=== PATIENT | female | born 1935 | race Caucasian/White ===

== ENCOUNTER → 2020-10-12 10:44 | Outpatient (BNVA) | payer MEDICARE, SELFPAY | PROVIDERS: PCP Family Medicine; Visit Provider Internal Medicine | DX: J98.4 Other disorders of lung (principal); J44.9 Chronic obstructive pulmonary disease, unspecified; Z79.51 Long term (current) use of inhaled steroids | CPT/HCPCS: 99212 ==

== ENCOUNTER → 2020-11-16 13:55 | Outpatient (BNVA) | payer MEDICARE, SELFPAY | PROVIDERS: PCP Family Medicine; Visit Provider Internal Medicine Cardiovascular Disease | DX: I48.0 Paroxysmal atrial fibrillation (principal); I27.20 Pulmonary hypertension, unspecified; R60.0 Localized edema | CPT/HCPCS: 93005; 99212 ==

== ENCOUNTER → 2021-05-30 15:36 | Outpatient (BNVA) | payer MEDICARE, SELFPAY | PROVIDERS: PCP Family Medicine; Visit Provider Internal Medicine | DX: J44.9 Chronic obstructive pulmonary disease, unspecified (principal); J98.4 Other disorders of lung; R06.00 Dyspnea, unspecified; E66.9 Obesity, unspecified; Z68.41 Body mass index [BMI] 40.0-44.9, adult; Z79.51 Long term (current) use of inhaled steroids; Z71.3 Dietary counseling and surveillance | CPT/HCPCS: 99212 ==

== ENCOUNTER → 2022-04-17 14:22 | Outpatient (BNVA) | payer MEDICARE, SELFPAY | PROVIDERS: PCP Family Medicine; Referring Provider Family Medicine; Visit Provider Internal Medicine Cardiovascular Disease | DX: R60.0 Localized edema (principal); I48.0 Paroxysmal atrial fibrillation; I27.20 Pulmonary hypertension, unspecified | CPT/HCPCS: 93005; 99212 ==

== ENCOUNTER 2022-05-13 10:36 | Inpatient (IN) | payer MEDICARE, SELFPAY ==
--- NOTE | ~2022-05-13 | XR_ITS ---
EXAMINATION: XR CHEST CLINICAL INFORMATION: Hypoxia COMPARISON: January 16, 2019 TECHNIQUE: AP view of the chest was obtained. FINDINGS: There is prominence of the central pulmonary vasculature without airspace edema being evident. There is some hazy density seen about the left heart border likely related to pericardial fat pad. No pneumothorax or significant pleural effusion is appreciated. XR/XR chest 1V IMPRESSION: No significant acute parenchymal disease identified. Prominence of central pulmonary vasculature without nigel interstitial or airspace edema.
--- NOTE | ~2022-05-13 | CT_ITS ---
EXAMINATION: CT HEAD WITHOUT CONTRAST CLINICAL INFORMATION: Status post fall, on Xarelto, rule out intracranial abnormality. COMPARISON: Head CT scan dated 01/16/2019. TECHNIQUE: Contiguous axial imaging was performed from the skull base to vertex without intravenous administration of contrast. Coronal and sagittal reformatted images were obtained. This CT examination was performed using dose optimization techniques as appropriate, variously including the following: *Automated exposure control *Adjustment of mA and/or kV according to patient size (this includes techniques or standardized protocols for targeted exams where dose is matched to indication/reason for exam; i.e. extremities or head) *Use of iterative reconstruction technique DLP: 696.67 mGy-cm FINDINGS: There is mild widening of the cortical sulci and associated ventriculomegaly. Mild periventricular microvascular changes are seen. The lateral ventricles are symmetrical. The third and fourth ventricles are in their normal midline position. The basilar and prepontine cisterns are unremarkable. There is no acute intra or extracerebral abnormality. There is no mass effect or midline shift. Sections through the bony calvarium are unremarkable. The orbits are intact. The paranasal sinuses are clear. The mastoid air cells are clear. CT/CT head/brain wo IV con IMPRESSION: No acute intracranial pathology.
--- NOTE | ~2022-05-13 | CT_ITS ---
EXAMINATION: CT CERVICAL SPINE WITHOUT CONTRAST CLINICAL INFORMATION: Status post fall with head strike. COMPARISON: None TECHNIQUE: Multiple axial images of the cervical spine were obtained without the administration of intravenous contrast. Coronal and sagittal reformatted images were obtained. This CT examination was performed using dose optimization techniques as appropriate, variously including the following: *Automated exposure control *Adjustment of mA and/or kV according to patient size (this includes techniques or standardized protocols for targeted exams where dose is matched to indication/reason for exam; i.e. extremities or head) *Use of iterative reconstruction technique DLP: 421.97 mGy-cm FINDINGS: There is straightening of the normal cervical lordosis with normal spinal alignment. The vertebral bodies are intact. Moderate degenerative disc disease is seen at C5-C6 and C6-C7 with disc space narrowing and marginal osteophyte formation. Mild bilateral neural foraminal narrowing is seen as well. Mild multilevel facet arthropathy seen bilaterally. The spinous processes are intact. The odontoid process is intact. The cervical soft tissues are unremarkable. There is no lymphadenopathy. The visualized thyroid gland is unremarkable. The visualized lung apices are clear. CT/CT cervical spine wo IV con IMPRESSION: 1. Straightening of the normal cervical lordosis may be secondary to positioning and/or muscle spasm. 2. Multilevel degenerative changes. No acute abnormality.
--- NOTE | 2022-05-13 10:50 | ECG_ITS ---
Test Reason : LOW SATS Blood Pressure : / mmHG Vent. Rate : 074 BPM Atrial Rate : 074 BPM P-R Int : 174 ms QRS Dur : 090 ms QT Int : 396 ms P-R-T Axes : 077 048 019 degrees QTc Int : 439 ms Normal sinus rhythm Intra-ventricular conduction delay Borderline ECG When compared with ECG of 16-JAN-2019 10:51, No significant change was found Referred By: Lora Wells Electronically Signed By:ARAVIND NGUYEN MD
--- NOTE | 2022-05-13 10:52 | ED_ITS ---
HPI - General Adult General Chief complaint: Dyspnea Stated complaint: fall-diff breathing Source: patient and EMS Mode of arrival: EMS Limitations: no limitations History of Present Illness HPI narrative: 86 yo female with history of COPD/asthma, restrictive lung disease, never smoker, paroxysmal afib on Xarelto, obesity, pulmonary HTN, chronic LE edema with recent diagnosis of COVID 1 week ago who presents to the ER from [facility] facility who presents to the ER for evaluation of hypoxia and a mechanical fall in the bathroom today. EMS reports they were called to evaluate the patient after she slipped and fell in the bathroom. Patient states after she got out of the shower today she slipped on the floor and fell onto her bottom. She did not hit her head or lose consciousness. She was unable to get up on her own so called EMS. On EMS arrival patient was awake and alert with some mild respiratory distress. She was found to be hypoxic to 80-84%, unable to recover on her own. She was sl ightly wheezy and diminished per EMS report. She was placed on supplemental oxygen, 3-4L with improvement in sats to low 90's. Patient refused transfer to the hospital, [facility] was called to [facility] [place] and patient was convinced to come for evaluation. En route patient was given duoneb and 100 mg solucortef. On arrival to ED, SpO2 89% on RA, 92% on 2L NC. No respiratory distress. Patient denies chest pain, injuries from her fall. She has chronic LE edema that she says is unchanged from her baseline. MD complaint: hypoxia, s/p fall Onset (ago): hour(s) Pain Consistency: constant Relieving factors: other (oxygen) Associated symptoms: cough, shortness of breath and weakness Treatments prior to arrival: none Related Data Home Medications Medication Instructions Recorded Confirmed ascorbic acid (vitamin C) 500 mg 500 mg PO DAILY 10/12/20 05/13/22 capsule rivaroxaban 20 mg tablet 20 mg PO BEDTIME 11/16/20 05/13/22 fluticasone propionate 50 2 spray intranasal DAILY 05/30/21 05/13/22 mcg/actuation nasal spray,suspension vitamin B complex (Vitamins B 1 tab PO DAILY 05/30/21 05/13/22 Complex tablet) fluoxetine 10 mg capsule 10 mg PO BEDTIME 04/17/22 05/13/22 pregabalin 150 mg capsule 150 mg PO DAILY 04/17/22 05/13/22 torsemide 20 mg tablet 20 mg PO DAILY 04/17/22 05/13/22 albuterol sulfate 90 mcg/actuation 2 puff inhalation Q6H PRN 05/13/22 05/13/22 aerosol inhaler (Ventolin HFA) Shortness Of Breath fluoxetine 20 mg capsule 1 cap PO BEDTIME 05/13/22 05/13/22 trazodone 50 mg tablet 1 tab PO BEDTIME PRN Insomnia 05/13/22 05/13/22 Allergies Allergy/AdvReac Type Severity Reaction Status Date / Time latex [LATEX] Allergy Unknown RASH Verified 05/30/21 16:00 penicillin G [PENICILLIN G] Allergy Unknown SOB, RASH Verified 05/30/21 16:00 Sulfa (Sulfonamide Allergy Unknown hives, Verified 05/30/21 16:00 Antibiotics) itching Review of Systems Review of Systems: Constitutional: No Fever, No Chills ENT/Mouth: No sore throat, No Rhinorrhea, No Swallowing Difficulty Eyes: No Eye Pain, No Swelling, No Redness Cardiovascular: No Chest Pain, + SOB, No Orthopnea, + Edema Respiratory: + Cough, No Sputum, No Wheezing, No dyspnea Gastrointestinal: No Nausea, No Vomiting, No Diarrhea, No abdominal Pain, No Hematochezia, No Melena Genitourinary: No Dysuria, No Urinary Frequency, No Hematuria Musculoskeletal: No joint pain, No Myalgias Skin: No Skin Lesions, No rash Neuro: +Weakness, No Numbness, No Dizziness, No Headache Psych: No Anxiety/Panic, No Depression Heme/Lymph: No Bruising, No Lymphadenopathy Endocrine: No Polyuria, No Polydipsia PMFSH Past Medical History Medical History COPD (chronic obstructive pulmonary disease) Obesity Paroxysmal atrial fibrillation Pulmonary hypertension Restrictive lung disease Surgical History History of lumpectomy of right breast History of umbilical hernia repair Hx of appendectomy Hx of cholecystectomy Hx of colonoscopy Family History Family History Father CVD (cardiovascular disease) Mother No problems noted. Social History Social History Smoked in Last 30 Days: No Use of substances other than those prescribed or required for medical reasons: No Advance Directives: No Physical Exam ED Vital Signs: Vital Signs - 24 hr 05/13/22 10:54 05/13/22 11:56 Temperature 97.8 F 97.7 F Pulse Rate 78 97 Respiratory Rate 20 16 Blood Pressure 139/40 L 129/51 L Pulse Oximetry 92 95 Oxygen Delivery Method Nasal Cannula Nasal Cannula Oxygen Flow Rate 2 BMI result Body Mass Index 42.9 Appearance: Alert. Oriented X3. No acute distress. Eyes: Pupils equal, round and reactive to light. ENT: Pharynx normal. Neck: Normal inspection. Neck supple. CVS: Normal heart rate and rhythm. Pulses normal. Respiratory: No respiratory distress. Breath sounds diminished at bilateral bases, no wheezes or rhonchi appreciated. Abdomen: Obese Soft and nontender. +BS x4 Skin: Skin warm and dry. Normal skin color. Normal skin turgor. No rashes. Extremities: 3+ bilateral lower extremity edema with mild erythema and warmth of distal LE bilaterally (chronic), not shiny. no calf tenderness. Neuro: Oriented X 3. No motor deficit. No sensory deficit. Generalized weakness noted, nonfocal Course Course Course Narrative: 86 yo female with history of COPD/asthma/restrictive lung disease, recent COVID diagnosis 1 week ago, afib on Xarelto, neuropathy, LE edema who presents to the ER for evaluation after a slip and fall in the bathroom as well as hypoxia, low 80s on room air. Minimal respiratory symptoms but admits to mild SOB and prod uctive cough. Overall she appears well, nontoxic and not SOB. She remains hypoxic 89% on RA after neb, no appreciated wheezes. Will check CXR, COVID labs, EKG and plan for admission. She is vaccinated. Reevaluation(s) Reevaluation #1: Continues to require O2. CXR with central vascular congestion, without overt edema. Ferritin normal. DDIMER on 400s (doubt PE, anticoagulated) and CRP 2.26. Will plan for admission for IV steroids, supplemental oxygen and further monitoring. Patient updated on plan of care. Medical Decision Making Lab Data Result diagrams: 05/13/22 11:11 05/13/22 11:11 Labs: Lab Results 05/13/22 05/13/2205/13/22 Range/Units 11:11 11:11 11:11 WBC 6.0 (4.8-10.8) X10*3/uL RBC 5.02 (4.20-5.50) X10*6/uL Hgb 13.6 (12.0-16.0) g/dl Hct 45.7 (37.0-47.0) % MCV 91.0 (80.0-98.0) fL MCH 27.1 (27.0-33.0) pg MCHC 29.8 L (31.0-35.0) g/dl RDW 15.2 (11.0-16.0) % Plt Count 142 L (160-400) X10*3/uL MPV 10.0 (9.4-12.3) fL Immature Gran % (Auto) 0.2 (0.0-0.4) % Neut % (Auto) 80.0 H (45-73) % Lymph % (Auto) 12.1 L (20-40) % [place] % (Auto) 6.9 (2-11) % Eos % (Auto) 0.5 (0-4) % Baso % (Auto) 0.3 (0-2) % Lymph # (Auto) 0.7 L (1.2-4.9) X10*3/uL [place] # (Auto) 0.4 (0.1-1.2) X10*3/uL Eos # (Auto) 0.0 (0.0-0.4) X10*3/uL Baso # (Auto) 0.0 (0.0-0.2) X10*3/uL Abs Immat Gran (auto) 0.01 (0.00-0.03) X10*3/uL Absolute Neuts (auto) 4.8 (2.0-8.3) x10*3/uL Absolute Nucleated RBC 0.000 (0.0-0.012) X10*3/uL Nucleated RBC % (auto) 0.0 (0.0-0.2) /100WBC PT (10.0-13.1) SEC INR (0.9-1.1) APTT (26.0-36.4) SEC D-Dimer High Sensitivty NG/ML Sodium 142 (135-145) mmol/L Potassium 4.6 (3.3-5.1) mmol/L Chloride 102 (96-108) mmol/L Carbon Dioxide 29 (22-29) mmol/L Anion Gap 16 (12-20) BUN 14 (9-16) mg/dL Creatinine 0.81 (0.5-1.4) mg/dL Estim Creat Clear Calc 63.8 Estimated GFR > 60 Random Glucose 106 (60-115) mg/dL Lactic Acid 1.2 (0.5-2.0) mmol/L Calcium 9.7 (8.4-10.2) mg/dL Magnesium 1.6 (1.6-2.6) mg/dL Ferritin 36 (10-250) ng/mL Total Bilirubin 0.9 (0.0-1.0) mg/dL Direct Bilirubin 0.3 (0.0-0.5) mg/dL AST 16 (5-31) U/L ALT 9 (0-31) U/L Alkaline Phosphatase 114 (39-117) U/L Lactate Dehydrogenase 183 (122-220) U/L Troponin I High Sens (<3.5-17.0) ng/L C-Reactive Protein 2.26 H (< or = 0.50) mg/dL B-Natriuretic Peptide (<100) pg/mL Total Protein 6.9 (6.5-8.0) g/dL Albumin 3.6 (3.5-5.0) g/dL COVID-19 (IVETT) (Negative) COVID-19 Clin Com 05/13/22 05/13/22 05/13/22 Range/Units 11:11 12:36 13:52 WBC (4.8-10.8) X10*3/uL RBC (4.20-5.50) X10*6/uL Hgb (12.0-16.0) g/dl Hct (37.0-47.0) % MCV (80.0-98.0) fL MCH (27.0-33.0) pg MCHC (31.0-35.0) g/dl RDW (11.0-16.0) % Plt Count (160-400) X10*3/uL MPV (9.4-12.3) fL Immature Gran % (Auto) (0.0-0.4) % Neut % (Auto) (45-73) % Lymph % (Auto) (20-40) % [place] % (Auto) (2-11) % Eos % (Auto) (0-4) % Baso % (Auto) (0-2) % Lymph # (Auto) (1.2-4.9) X10*3/uL [place] # (Auto) (0.1-1.2) X10*3/uL Eos # (Auto) (0.0-0.4) X10*3/uL Baso # (Auto) (0.0-0.2) X10*3/uL Abs Immat Gran (auto) (0.00-0.03) X10*3/uL Absolute Neuts (auto) (2.0-8.3) x10*3/uL Absolute Nucleated RBC (0.0-0.012) X10*3/uL Nucleated RBC % (auto) (0.0-0.2) /100WBC PT 13.6 H (10.0-13.1) SEC INR 1.2 H (0.9-1.1) APTT 30.5 (26.0-36.4) SEC D-Dimer High Sensitivty 419 NG/ML Sodium (135-145) mmol/L Potassium (3.3-5.1) mmol/L Chloride (96-108) mmol/L Carbon Dioxide (22-29) mmol/L Anion Gap (12-20) BUN (9-16) mg/dL Creatinine (0.5-1.4) mg/dL Estim Creat Clear Calc Estimated GFR Random Glucose (60-115) mg/dL Lactic Acid (0.5-2.0) mmol/L Calcium (8.4-10.2) mg/dL Magnesium (1.6-2.6) mg/dL Ferritin (10-250) ng/mL Total Bilirubin (0.0-1.0) mg/dL Direct Bilirubin (0.0-0.5) mg/dL AST (5-31) U/L ALT (0-31) U/L Alkaline Phosphatase (39-117) U/L Lactate Dehydrogenase (122-220) U/L Troponin I High Sens 11.3 (<3.5-17.0) ng/L C-Reactive Protein (< or = 0.50) mg/dL B-Natriuretic Peptide 66 (<100) pg/mL Total Protein (6.5-8.0) g/dL Albumin (3.5-5.0) g/dL COVID-19 (IVETT) Positive A (Negative) COVID-19 Clin Com See Note ECG Data Attestation: I personally reviewed and interpreted this ECG as follows: Prior ECG tracings: available for review Interpretation: normal sinus rhythm, HR 74 bpm, normal DC interval, no ST segment elevations or depressions Critical Care Time Critical Care Time Critical Care Time: Yes Total Critical Care Time: 39 Attestation: I have personally provided critical care time exclusive of time spent on separately billable procedures. Time includes review of lab data, radiology results, discussion with consultants, and monitoring for potential deco mpensation. Intervention performed as documented. Discharge Plan Discharge Clinical Impression: Acute respiratory failure with hypoxia, COVID-19 Patient Disposition: Admitted As Inpatient
[2022-05-13 10:54] VITALS: BP 139/40; PULSE 78; RESP 20; TEMP 36.6; O2SAT 84; O2SAT 92; BMI 42.9
[2022-05-13 11:16] LABS: MANUAL DIFF FLAG NO
[2022-05-13 11:26] LABS: Basophils Percent Auto 0.3 % (0-2); Eosinophils Percent Auto 0.5 % (0-4); Hematocrit 45.7 % (37.0-47.0); Hemoglobin 13.6 g/dl (12.0-16.0); Imm Gran Abs Auto 0.01 X10*3/uL (0.00-0.03); Imm Gran Pct Auto 0.2 % (0.0-0.4); Lymphocytes Absolute Auto 0.7 X10*3/uL (1.2-4.9); Lymphocytes Percent Auto 12.1 % (20-40); Mean Corpuscular HGB Conc 29.8 g/dl (31.0-35.0); Mean Corpuscular Hemoglobin 27.1 pg (27.0-33.0); Monocytes Absolute Auto 0.4 X10*3/uL (0.1-1.2); Monocytes Percent Auto 6.9 % (2-11); Neutrophils Absolute Auto 4.8 x10*3/uL (2.0-8.3); Platelet Count 142 X10*3/uL (160-400); Red Blood Count 5.02 X10*6/uL (4.20-5.50); Red Cell Distribution Width 15.2 % (11.0-16.0)
[2022-05-13 11:29] LABS: Lactic Acid 1.2 mmol/L (0.5-2.0)
[2022-05-13 11:51] LABS: COVID-19 Test Positive (Negative)
--- OUTSIDE RECORDS SUMMARY | 2022-05-13 11:51 | XMS_ITS | Continuity of Care Document ---
:1935 Author Organization [facility] Adult Address [address] [place] [address]- Care Team Providers Name Role Phone Escobar CHASE, Landry Puentes Primary Care Physician [place] [facility] [place]22 [facility] [address] [place] [address]- Allergies, Adverse Reactions, Alerts Substance Reaction Severity Status lisinopril Active penicillins Active sulfa drugs hives Active Bactrim Active Adhesive Bandage Active Immunizations Given and Recorded Vaccine Date Status Refusal Reason SARS-CoV-2 mRNA ([id number]) vax 12/01/21 Recorde d SARS-CoV-2 (COVID-19) mRNA BNT-162b2 vac 05/15/21 Recorde d SARS-CoV-2 (COVID-19) mRNA BNT-162b2 vac 09/29/20 Recorde d SARS-CoV-2 (COVID-19) mRNA BNT-162b2 vac 09/08/20 Recorde d influenza virus vaccine, inactivated 05/07/21 Recorded influenza virus vaccine, inactivated 04/15/20 Recorded influenza virus vaccine, inactivated 06/19/17 Recorded influenza virus vaccine, inactivated 05/18/16 Recorded influenza virus vaccine, inactivated 07/15/13 Recorded Influenza Virus Vaccine (oldterm) 06/01/19 Recorded tetanus-diphtheria toxoids (Td) 12/21/18 Recorded tetanus-diphtheria toxoids (Td) 03/06/18 Recorded pneumococcal 13-valent vaccine 06/19/17 Recorded pneumococcal 13-valent vaccine1 08/06/16 Recorded tetanus/diphtheria/pertussis, acel(Tdap) 01/17/14 Given Zostavax (oldterm)2 08/06/12 Recorded pneumococcal 23-valent vaccine3 08/06/08 Recorded 1Location History: Dr. [id number] History: Dr. [id number] History: Dr. Serrano Medications albuterol-ipratropium 3 mg-0.5 mg/3 ml inhalation solution 3 mL, Neb, 4 times a day, PRN Wheezing/Shortness of Breath, DX:R06.2, # 60 each, 5 Refills, Maintenance, 11/14/19 11:56:00 EDT, Solution, [id number], 3 mL Neb 4 times a day,PRN:Wheezing/Shortness of Breath,Instr:DX:R06.2, 165, cm, 08/20/19 11:... Start Date: 11/14/19 Status: OrderedB-Complex SR oral tablet, extended release By Mouth, Daily, 0 Refills, Maintenance, 06/30/19 11:06:14 EST Start Date: 06/30/19 Status: OrderedCompression Stockings See Instructions, # 2 each, Maintenance, surgical, calf length 20-30 mm Hg, 06/10/20 15:16:00 EST, Supply Start Date: 06/10/20 Status: OrderedFLUoxetine 10 mg oral capsule 10 mg, 1, capsule, By Mouth, Daily, along with 20 mg for a total dose of 30 mg daily, # 30 capsule, Refills 0, Maintenance, 02/07/19 10:37:38 EDT Start Date: 02/07/19 Status: OrderedFLUoxetine 20 mg oral capsule 20 mg, 1, capsule, By Mouth, Daily, along with 10 mg for total dose of 30 mg daily, # 60 capsule, Refills 0, Maintenance, 02/07/19 10:37:26 EDT Start Date: 02/07/19 Status: Orderedfluticasone 50 mcg/inh nasal spray See Instructions, USE 2 SPRAYS IN EACH NOSTRIL DAILY, # 48 mL, 3 Refills, [id number], 90, USE 2SPRAYS IN EACH NOSTRIL DAILY, 165, cm, 05/06/21 15:57:00 EDT, Height Start Date: 06/07/21 Status: OrderedJuxtafit Knee-high Compression Garments(bilateral, left, right) with 2 pairs of liners Juxtafit Knee-high Compression Garments(bilateral, left, right) with 2 pairs of liners, See Instructions, # 1 kit, Refills 0, Tot. Refills 0, Maintenance, wear on both legs during the day take off at bedtime. DX BILATERAL Venous inufficiency, ... Start Date: 01/27/22 Status: OrderedLyrica 150 mg oral capsule 1 capsule = 150 mg, By Mouth, Daily at bedtime, Increase in dosage, # 30 capsule, 2 Refills, Maintenance, 01/30/22 14:25:00 EDT, [id number], Partial fill upon patient request if the prescription is for a schedule II opioid drug., 165, cm, 01/20... Start Date: 01/30/22 Status: OrderedMyrbetriq 50 mg oral tablet, extended release 1 tablet = 50 mg, By Mouth, Daily, Replaces 25 mg dose, # 90 tablet, 3 Refills, Maintenance, 07/11/21 15:36:00 EST, [id number], Partial fill upon patient request if the prescription is for a schedule II opioid drug., 165, cm, 07/11/21 15:26:00... Start Date: 07/11/21 Status: Orderedpantoprazole 40 mg oral delayed release tablet 1 tablet, By Mouth, Daily, # 90 tablet, 0 Refills, 165, cm, 10/17/21 13:57:00 EDT, Height Start Date: 11/24/21 Status: Orderedspironolactone 50 mg oral tablet 1 tablet = 50 mg, By Mouth, Daily, # 90 tablet, 1 Refills, Maintenance, 09/29/21 11:56:00 EST, [id number], Partial fill upon patient request if the prescription is for a schedule II opioid drug., 165, cm, 09/29/21 11:29:00 EST, Height Start Date: 09/29/21 Status: Orderedtorsemide 20 mg oral tablet 1 tablet = 20 mg, By Mouth, Daily, # 30 tablet, 2 Refills, Maintenance, 01/30/22 14:24:00 EDT, Tablet, [id number], Partial fill upon patient request if the prescription is for a schedule II opioid drug., 165, cm, 01/30/22 14:06:00 EDT, Height Start Date: 01/30/22 Status: OrderedVentolin 90 mcg Inhaler 2, puffs, Inhalation, 4 times a day, PRN, Refills 0, Maintenance, 07/10/17 12:12:30 Start Date: 07/10/17 Status: OrderedVitamin C 100 mg oral tablet 1 tablet = 100 mg, By Mouth, Daily, 0 Refills, Maintenance Start Date: 04/25/13 Status: OrderedVitamin D3 By Mouth, 0 Refills, Maintenance Start Date: 03/29/12 Status: OrderedXarelto 20 mg oral tablet 1 tablet, By Mouth, Daily in PM, # 30 tablet, 5 Refills, Maintenance, 12/07/21 9:56:00 EDT, [id number], 165, cm, 10/17/21 13:57:00 EDT, Height Start Date: 12/07/21 Status: Ordered Problem List Condition Effective Dates Status Health Status Informant Asthma(Confirmed) Active Atrial fibrillation(Confirmed) Active Chronic anxiety(Confirmed) Active GERD (gastroesophageal reflux Active disease)(Confirmed) HTN (hypertension)(Confirmed) Active Insomnia(Confirmed) Active 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), 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, T1 N0, ER/[place] positive, 2003(Confirmed) COPD, moderate(Confirmed) Active Palpitations(Confirmed) Active Paroxysmal atrial Active fibrillation(Confirmed) Peripheral edema(Confirmed) Active Peripheral neuropathy(Confirmed) Active Severe obesity(Confirmed) Active 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
--- OUTSIDE RECORDS SUMMARY | 2022-05-13 11:51 | XMS_ITS | Continuity of Care Document ---
:1935 Author Organization [facility] Adult Address [address] [place] [address]- Care Team Providers Name Role Phone Landry Cody MD Primary Care Physician Encounter [facility] [place] Date(s): 01/26/21 - 02/02/21 [facility] [address] [place] [address]- Encounter Diagnosis Atrial fibrillation (Discharge Diagnosis) - 01/26/21 Controlled type 2 diabetes mellitus with diabetic neuropathy (Discharge Diagnosis) - 01/26/21 GERD (gastroesophageal reflux disease) (Discharge Diagnosis) - 01/26/21 HTN (hypertension) (Discharge Diagnosis) - 01/26/21 Insomnia (Discharge Diagnosis) - 01/26/21 Peripheral edema (Discharge Diagnosis) - 01/26/21 Peripheral neuropathy (Discharge Diagnosis) - 01/26/21 Attending Physician: Landry Cody MD Allergies, Adverse Reactions, Alerts Substance Reaction Severity Status lisinopril Active penicillins Active Adhesive Bandage Active sulfa drugs hives Active Bactrim Active Immunizations Given and Recorded Vaccine Date Status Refusal Reason SARS-CoV-2 (COVID-19) mRNA BNT-162b2 vac 09/29/20 Recorde d SARS-CoV-2 (COVID-19) mRNA BNT-162b2 vac 09/08/20 Recorde d influenza virus vaccine, inactivated 04/15/20 Recorded influenza [...] 23-valent vaccine3 08/06/08 Recorded 1Location History: Dr. [id number] History: Dr. [id number] History: Dr. Serrano Medications albuterol-ipratropium 3 mg-0.5 [...] 06/30/19 11:06:14 EST Start Date: 06/30/19 Status: Orderedciprofloxacin 250 mg oral tablet 1 tablet = 250 mg, By Mouth, Every 12 hours, # 10 tablet, 0 Refills, Maintenance, 12/22/20 13:11:00 EDT, [id number], 165, cm, 10/27/20 10:30:00 EDT, Height Start Date: 12/22/20 Status: OrderedCompression Stockings See Instructions, # 2 [...] 02/07/19 Status: Orderedfluticasone 50 mcg/inh nasal spray 2 sprays = 100 mcg, Nares, Both, Daily, # 16 Gm, 11 Refills, Maintenance, 11/27/19 16:40:00 EDT, Nasal [place], [facility]/pharmacy #[id number], 2 sprays Nares, Both Daily, 165, cm, 08/20/19 11:09:00 EST, Height Start Date: 11/27/19 Status: Orderedgabapentin 100 mg oral capsule 100 mg, 1, capsule, By Mouth, 3 times a day, # 90 capsule, Refills 3, Tot. Refills 3, Maintenance, 04/21/20 13:09:00 EDT, Route to Pharmacy Electronically, [facility]/pharmacy #[id number], 165, cm, 04/01/20 13:58:00 EDT, Height Start Date: 04/21/20 Status: Orderedgabapentin 300 mg oral capsule 300 mg, 1, capsule, By Mouth, 3 times a day, # 270 capsule, Refills 3, Tot. Refills 3, Maintenance, 01/27/21 6:43:00 EDT, Route to Pharmacy Electronically, [facility]/pharmacy #[id number], Partial fill upon patientrequest if the prescription is for a schedule II... Start Date: 01/27/21 Status: OrderedIncruse Ellipta = 62.5 mcg, Inhalation, Every 24 hours, 0 Refills, Maintenance, 07/10/17 12:12:03 Start Date: 07/10/17 Status: OrderedLORazepam 1 mg oral tablet 1 tablet = 1 mg, By Mouth, Daily, PRN as needed for anxiety, # 20 tablet, 0 Refills, Acute 02/03/22 8:00:00 EDT, 01/27/21 6:40:00 EDT, [facility]/pharmacy #[id number], Partial fill upon patient request if the prescription is for a schedule II opioid drug., 165, cm... Start Date: 01/27/21 Stop Date: 02/03/22 Status: Orderedpantoprazole 40 mg oral delayed release tablet 1 tablet = 40 mg, By Mouth, Daily, # 90 tablet, 0 Refills, Maintenance, 12/13/20 12:42:00 EDT, [facility] Tablet, 165, cm, 10/27/20 10:30:00 EDT, Height Start Date: 12/13/20 Status: Orderedspironolactone 25 mg oral tablet 1, tablet, By Mouth, Daily, # 90 tablet, Refills 0, Tot. Refills 0, Maintenance, 12/16/20 16:15:00 EDT, Route to Pharmacy Electronically, [id number], 165, cm, 10/27/20 10:30:00 EDT, Height Start Date: 12/16/20 Status: OrderedVentolin 90 mcg Inhaler 2, puffs, [...] PM, # 30 tablet, 5 Refills, Maintenance, 11/12/20 16:32:00 EDT, [id number], 165, cm, 10/27/20 10:30:00 EDT, Height Start Date: 11/12/20 Status: Ordered Problem List Condition Effective Dates Status Health Status Informant Asthma(Confirmed) Active Atrial fibrillation(Confirmed) Active Chronic anxiety(Confirmed) Active GERD (gastroesophageal reflux Active disease)(Confirmed) HTN (hypertension)(Confirmed) Active Insomnia(Confirmed) Active 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), 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, T1 N0, ER/[place] positive, 2003(Confirmed) COPD, moderate(Confirmed) Active Palpitations(Confirmed) Active Paroxysmal atrial Active fibrillation(Confirmed) Peripheral edema(Confirmed) Active Peripheral neuropathy(Confirmed) Active 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(Confirmed) Diagnosis Diagnosis Type Effective Dates Health Clinical Infor mant Status Service Atrial fibrillation Discharge 01/26/21 Diagnosis Controlled type 2 Discharge 01/26/21 diabetes mellitus Diagnosis with diabetic neuropathy GERD Discharge 01/26/21 (gastroesophageal Diagnosis reflux disease) HTN (hypertension) Discharge 01/26/21 Diagnosis Insomnia Discharge 01/26/21 Diagnosis Peripheral edema Discharge 01/26/21 Diagnosis Peripheral Discharge 01/26/21 neuropathy Diagnosis Vital Signs Most recent to oldest [Reference Range]: 1 Height 165.00 cm (01/26/21 11:07 AM) Weight 114.6 kg (01/26/21 11:07 AM) Oxygen Saturation [94-100 %] 97 % (01/26/21 11:07 AM) Pulse Rate [55-90 bpm] 74 bpm (01/26/21 11:07 AM) Body Mass Index [18.5-24.99] 42.09 *>HHI* (01/26/21 11:07 AM) Blood Pressure [90-138/55-84 mm Hg] 120/60 mm Hg (01/26/21 11:07 AM) Temperature [96.8-100.4 DegF] 98.4 DegF (01/26/21 11:07 AM) Mode of Delivery (Oxygen) Room air (01/26/21 11:07 AM) Blood pressure sites Arm, left (01/26/21 11:07 AM) Temperature Route Oral (01/26/21 11:07 AM) Weight Obtained Via Standing scale (01/26/21 11:07 AM) Social History Social History Type Response Smoking Status Never smoker entered on: 06/15/15 Sex
--- OUTSIDE RECORDS SUMMARY | 2022-05-13 11:51 | XMS_ITS | Continuity of Care Document ---
:1935 Author Organization [facility] Adult Address [address] [place] [address]- Care Team Providers Name Role Phone Escobar CHASE, Landry Puentes Primary Care Physician Encounter [facility] Date(s): 02/03/22 - 03/05/22 [facility] Adult [address] [place] [address]- Allergies, Adverse Reactions, Alerts Substance Reaction Severity Status lisinopril Active penicillins Active sulfa drugs hives Active Bactrim Active Adhesive Bandage Active Immunizations Given and Recorded Vaccine Date Status Refusal Reason SARS-CoV-2 mRNA (trluiqj-tydy-ugsyk) vax 12/01/21 Recorde d SARS-CoV-2 (COVID-19) mRNA [...] 23-valent vaccine3 08/06/08 Recorded 1Location History: Dr. SerranoYerypfd1Xdwbsnul History: Dr. SerranoKvpsqxb7Ztynshyu History: Dr. Serrano Medications albuterol-ipratropium 3 mg-0.5 [...] NOSTRIL DAILY, # 48 mL, 3 Refills, [id number], 90, USE 2SPRAYS IN EACH NOSTRIL DAILY, [...] tablet, 5 Refills, Maintenance, 12/07/21 9:56:00 EDT, [facility]/pharmacy #[id number], 165, cm, 10/17/21 13:57:00 EDT, Height Start Date: 12/07/21 Status: Ordered Problem List Condition Effective Dates Status Health Status Informant Asthma(Confirmed) Active Atrial fibrillation(Confirmed) Active Chronic anxiety(Confirmed) Active GERD (gastroesophageal reflux Active disease)(Confirmed) HTN (hypertension)(Confirmed) Active Insomnia(Confirmed) Active 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
--- OUTSIDE RECORDS SUMMARY | 2022-05-13 11:51 | XMS_ITS | Continuity of Care Document ---
:1935 Author Organization [facility] Adult Address [address] [place] [address]- Care Team Providers Name Role Phone Landry Cody MD Primary Care Physician [place] [facility] [place](s): 11/27/19 - 12/04/19 [facility] Adult [address] [place] [address]- [facility] Attending Physician: Landry Cody MD Allergies, Adverse Reactions, Alerts Substance Reaction Severity Status lisinopril Active penicillins Active sulfa drugs hives Active Bactrim Active Adhesive Bandage Active Immunizations Given and Recorded Vaccine Date Status Refusal Reason Influenza Virus Vaccine (oldterm) 06/01/19 Recorded pneumococcal 13-valent vaccine1 08/06/16 Recorded tetanus/diphtheria/pertussis, acel(Tdap) 01/17/14 Given Zostavax (oldterm)2 08/06/12 Recorded pneumococcal 23-valent vaccine3 08/06/08 Recorded 1Location History: Dr. SerranoXmnzacs9Wgpmvxvw History: Dr. SerranoDivqvsh8Zysgnuso History: Dr. Serrano Medications albuterol-ipratropium 3 mg-0.5 [...] 06/30/19 11:06:14 EST Start Date: 06/30/19 Status: OrderedColace sodium 100 mg oral capsule 100 mg, 1, capsule, By Mouth, 2 times a day, PRN, # 20 capsule, Refills 0, Maintenance, for constipation, 02/07/19 10:36:17 EDT Start Date: 02/07/19 Status: OrderedFLUoxetine 10 mg oral capsule 10 [...] 11 Refills, Maintenance, 11/27/19 16:40:00 EDT, Nasal [place], [facility]/pharmacy #[id number], 2 sprays Nares, Both Daily, 165, cm, 08/20/19 11:09:00 EST, Height Start Date: 11/27/19 Status: OrderedIncruse Ellipta = 62.5 mcg, Inhalation, Every 24 hours, 0 Refills, Maintenance, 07/10/17 12:12:03 Start Date: 07/10/17 Status: Orderedpantoprazole 40 mg oral delayed release tablet 1 tablet = 40 mg, By Mouth, Daily, # 90 tablet, 3 Refills, Maintenance, 03/31/19 16:17:00 EDT, EC Tablet Start Date: 03/31/19 Status: OrderedVentolin 90 mcg Inhaler 2, puffs, Inhalation, 4 times a day, PRN, Refills 0, Maintenance, 07/10/17 12:12:30 Start Date: 07/10/17 Status: OrderedVitamin C 100 mg oral tablet 1 tablet = 100 mg, By Mouth, Daily, 0 Refills, Maintenance Start Date: 04/25/13 Status: OrderedVitamin D3 By Mouth, 0 Refills, Maintenance Start Date: 03/29/12 Status: OrderedXarelto 20 mg oral tablet 1 tablet = 20 mg, By Mouth, Daily in PM, # 30 tablet, 5 Refills, Maintenance, 11/13/19 15:07:00 EDT,Tablet, [facility]/pharmacy #[id number], 165, cm, 08/20/19 11:09:00 EST, Height Start Date: 11/13/19 Status: Ordered Problem List Condition Effective Dates Status Health Status Informant Asthma(Confirmed) Active Atrial fibrillation(Confirmed) Active Chronic anxiety(Confirmed) Active GERD (gastroesophageal reflux Active disease)(Confirmed) HTN (hypertension)(Confirmed) Active Insomnia(Confirmed) Active 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
--- OUTSIDE RECORDS SUMMARY | 2022-05-13 11:51 | XMS_ITS | Continuity of Care Document ---
:1935 Author Organization [facility] Adult Address [address] [place] [address]- Care Team Providers Name Role Phone Escobar CHASE, Landry Puentes Primary Care Physician Encounter [facility] [place] Date(s): 12/23/21 - 01/22/22 [facility] Adult [address] [place] [address]- Attending Physician: AdmKim hand Admitting Physician: AdmtrKim Referring Physician: Admtr, Ar8 Allergies, Adverse Reactions, Alerts Substance Reaction Severity Status lisinopril Active penicillins Active sulfa drugs hives Active Bactrim Active Adhesive Bandage Active Immunizations Given and Recorded Vaccine Date Status Refusal Reason SARS-CoV-2 mRNA ([id number]) vax 12/01/21 Recorde d SARS-CoV-2 (COVID-19) mRNA [...] 23-valent vaccine3 08/06/08 Recorded 1Location History: Dr. SerranoNzbojul1Aluzjzje History: Dr. SerranoNrlpdco4Erzgxwvh History: Dr. Serrano Medications albuterol-ipratropium 3 mg-0.5 [...] NOSTRIL DAILY, # 48 mL, 3 Refills, [id number], 90, USE 2SPRAYS IN EACH NOSTRIL DAILY, 165, cm, 05/06/21 15:57:00 EDT, Height Start Date: 06/07/21 Status: OrderedLORazepam 1 mg oral tablet 1 tablet = 1 mg, By Mouth, Daily, PRN as needed for anxiety, # 20 tablet, 0 Refills, Acute 02/03/22 8:00:00 EDT, 01/27/21 6:40:00 EDT, [facility]/pharmacy #[id number], Partial fill upon patient request if the prescription is for a schedule II opioid drug., 165, cm... Start Date: 01/27/21 Stop Date: 02/03/22 Status: OrderedLyrica 75 mg oral capsule 1 capsule = 75 mg, By Mouth, Daily at bedtime, # 30 capsule, 5 Refills, Maintenance, 12/23/21 16:14:00 EDT, [facility]/pharmacy #[id number], Partial fill upon patient request if the prescription is for a schedule II opioid drug., 165, cm, 12/23/21 15:49:00 EDT, He... Start Date: 12/23/21 Status: OrderedMyrbetriq 50 mg oral tablet, extended release 1 tablet = 50 mg, By Mouth, Daily, Replaces 25 mg dose, # 90 tablet, 3 Refills, Maintenance, 07/11/21 15:36:00 EST, [facility]/pharmacy #[id number], Partial fill upon patient [...] tablet, 1 Refills, Maintenance, 09/29/21 11:56:00 EST, [facility]/pharmacy #[id number], Partial fill upon patient request if the prescription is for a schedule II opioid drug., 165, cm, 09/29/21 11:29:00 EST, Height Start Date: 09/29/21 Status: Orderedtorsemide 10 mg oral tablet 1 tablet = 10 mg, By Mouth, Daily, Patient has tolerated in the past, # 30 tablet, 2 Refills, Maintenance, 12/23/21 16:16:00 EDT, Tablet, [id number], Partial fill upon patient request if the prescription is for a schedule II opioid drug., 165,... Start Date: 12/23/21 Status: OrderedVentolin 90 mcg Inhaler 2, puffs, [...] tablet, 5 Refills, Maintenance, 12/07/21 9:56:00 EDT, [id number], 165, cm, 10/17/21 13:57:00 EDT, Height Start Date: 12/07/21 Status: Ordered Problem List Condition Effective Dates Status Health Status Informant Asthma(Confirmed) Active Atrial fibrillation(Confirmed) Active Chronic anxiety(Confirmed) Active GERD (gastroesophageal reflux Active disease)(Confirmed) HTN (hypertension)(Confirmed) Active Insomnia(Confirmed) Active 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), 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, T1 N0, ER/[place] positive, 2003(Confirmed) COPD, moderate(Confirmed) Active Palpitations(Confirmed) Active Paroxysmal atrial Active fibrillation(Confirmed) Peripheral edema(Confirmed) Active Peripheral neuropathy(Confirmed) Active Severe obesity(Confirmed) Active 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
--- OUTSIDE RECORDS SUMMARY | 2022-05-13 11:51 | XMS_ITS | Continuity of Care Document ---
:1935 Author Organization [facility] Adult Address [address] [place] [address]- Care Team Providers Name Role Phone Escobar CHASE, Landry Puentes Primary Care Physician Encounter [facility] Date(s): 11/27/19 - 12/27/19 [facility] Adult [address] [place] [address]- [facility] Attending Physician: Admtr, Ar8 Admitting Physician: Admtr, Ar8 Referring Physician: Admtr, Ar8 Allergies, Adverse Reactions, Alerts Substance Reaction Severity Status lisinopril Active penicillins Active Bactrim Active Adhesive Bandage Active sulfa drugs hives Active Immunizations Given and Recorded Vaccine Date Status Refusal Reason Influenza Virus Vaccine (oldterm) 06/01/19 Recorded pneumococcal 13-valent vaccine1 08/06/16 Recorded tetanus/diphtheria/pertussis, acel(Tdap) 01/17/14 Given Zostavax (oldterm)2 08/06/12 Recorded pneumococcal 23-valent vaccine3 08/06/08 Recorded 1Location History: Dr. SerranoVafvmjs1Giyapsac History: Dr. SerranoTnbrxlc2Ybhjuact History: Dr. Serrano Medications albuterol-ipratropium 3 mg-0.5 mg/3 ml inhalation solution 3 mL, Neb, 4 times a day, PRN Wheezing/Shortness of Breath, DX:R06.2, # 60 each, 5 Refills, Maintenance, 11/14/19 11:56:00 EDT, Solution, [id number], 3 mL Neb 4 times a day,PRN:Wheezing/Shortness [...] 11 Refills, Maintenance, 11/27/19 16:40:00 EDT, Nasal [place], [facility]/pharmacy #[id number], 2 sprays Nares, Both [...] tablet, 5 Refills, Maintenance, 11/13/19 15:07:00 EDT,Tablet, [facility], 165, cm, 08/20/19 11:09:00 EST, Height Start Date: 11/13/19 Status: Ordered Problem List Condition Effective Dates Status Health Status Informant Asthma(Confirmed) Active Atrial fibrillation(Confirmed) Active Chronic anxiety(Confirmed) Active GERD (gastroesophageal reflux Active disease)(Confirmed) HTN (hypertension)(Confirmed) Active Insomnia(Confirmed) Active 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), 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, T1 N0, ER/[place] positive, 2003(Confirmed) COPD, moderate(Confirmed) Active Palpitations(Confirmed) Active Paroxysmal atrial Active fibrillation(Confirmed) Peripheral neuropathy(Confirmed) Active 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
--- OUTSIDE RECORDS SUMMARY | 2022-05-13 11:52 | XMS_ITS | Continuity of Care Document ---
:1935 Author Organization [facility] Adult Address [address] [place] [address]- Care Team Providers Name Role Phone Escobar CHASE, Landry Puentes Primary Care Physician Encounter [facility] [place] Date(s): 05/27/21 - 06/26/21 [facility] Adult [address] [place] [address]- Allergies, Adverse Reactions, Alerts Substance Reaction Severity [...] 23-valent vaccine3 08/06/08 Recorded 1Location History: Dr. SerranoOateels0Qkfbjcjn History: Dr. SerranoEvpepix5Ymlfvqiu History: Dr. Serrano Medications albuterol-ipratropium 3 mg-0.5 [...] NOSTRIL DAILY, # 48 mL, 3 Refills, [facility]ORE [facility], 90, USE 2SPRAYS IN EACH NOSTRIL DAILY, 165, cm, 05/06/21 15:57:00 EDT, Height Start Date: 06/07/21 Status: OrderedLORazepam 1 mg oral tablet 1 tablet = 1 mg, By Mouth, Daily, PRN as needed for anxiety, # 20 tablet, 0 Refills, Acute 02/03/22 8:00:00 EDT, 01/27/21 6:40:00 EDT, [id number], Partial fill upon patient request if the prescription is for a schedule II opioid drug., 165, cm... Start Date: 01/27/21 Stop Date: 02/03/22 Status: OrderedLyrica 25 mg oral capsule 1 capsule = 25 mg, By Mouth, 3 times a day, replaces gabapentin, # 90 capsule, 2 Refills, Maintenance, 06/02/21 4:33:00 EST, Capsule, [id number], Partial fill upon patient request if the prescription is for a schedule II opioid drug., 165, cm,... Start Date: 06/02/21 Status: OrderedMyrbetriq 50 mg oral tablet, extended release 1 tablet = 50 mg, By Mouth, Daily, Replaces 25 mg dose, # 90 tablet, 3 Refills, Maintenance, 05/08/21 11:08:00 EDT, [id number], Partial fill upon patient request if the prescription is for a schedule II opioid drug., 165, cm, 05/06/21 15:57:00... Start Date: 05/08/21 Status: Orderedpantoprazole 40 mg oral delayed release tablet 1 tablet, By Mouth, Daily, # 90 tablet, 0 Refills, 165, cm, 05/06/21 15:57:00 EDT, Height Start Date: 06/02/21 Status: Orderedspironolactone 25 mg oral tablet 1, tablet, By Mouth, Daily, # 90 tablet, Refills 0, Route to Pharmacy Electronically, [id number], 165, cm, 05/06/21 15:57:00 EDT, Height Start Date: 06/02/21 Status: OrderedVentolin 90 mcg Inhaler 2, puffs, [...] Refills, Maintenance, 11/12/20 16:32:00 EDT, [id number], 165, cm, 10/27/20 10:30:00 EDT, Height Start Date: 11/12/20 Status: Ordered Problem List Condition Effective Dates Status Health Status Informant Asthma(Confirmed) Active Atrial fibrillation(Confirmed) Active Chronic anxiety(Confirmed) Active GERD (gastroesophageal reflux Active disease)(Confirmed) HTN (hypertension)(Confirmed) Active Insomnia(Confirmed) Active 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
--- OUTSIDE RECORDS SUMMARY | 2022-05-13 11:52 | XMS_ITS | Continuity of Care Document ---
:1935 Author Organization [facility] Adult Address [address] [place] [address]- Care Team Providers Name Role Phone Escobar CHASE, Landry Puentes Primary Care Physician Encounter [facility] Date(s): 01/19/22 - 02/18/22 [facility] Adult [address] [place] [address]- Allergies, Adverse Reactions, Alerts Substance Reaction Severity Status lisinopril Active penicillins Active sulfa drugs hives Active Bactrim Active Adhesive Bandage Active Immunizations Given and Recorded Vaccine Date Status Refusal Reason SARS-CoV-2 mRNA (gahjalc-[id number]) vax 12/01/21 Recorde d SARS-CoV-2 (COVID-19) mRNA [...] 23-valent vaccine3 08/06/08 Recorded 1Location History: Dr. SerranoCrvatvt0Uhvtmweh History: Dr. SerranoCfebsnw9Afjspbbo History: Dr. Serrano Medications albuterol-ipratropium 3 mg-0.5 [...] NOSTRIL DAILY, # 48 mL, 3 Refills, [facility], 90, USE 2SPRAYS IN EACH NOSTRIL DAILY, [...] tablet, 5 Refills, Maintenance, 12/07/21 9:56:00 EDT, [facility]/pharmacy #0373, 165, cm, 10/17/21 13:57:00 EDT, Height Start Date: 12/07/21 Status: Ordered Problem List Condition Effective Dates Status Health Status Informant Asthma(Confirmed) Active Atrial fibrillation(Confirmed) Active Chronic anxiety(Confirmed) Active GERD (gastroesophageal reflux Active disease)(Confirmed) HTN (hypertension)(Confirmed) Active Insomnia(Confirmed) Active 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), 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, T1 N0, ER/[place] positive, 2003(Confirmed) COPD, moderate(Confirmed) Active Palpitations(Confirmed) Active Paroxysmal atrial Active fibrillation(Confirmed) Peripheral edema(Confirmed) Active Peripheral neuropathy(Confirmed) Active Severe obesity(Confirmed) Active 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
--- OUTSIDE RECORDS SUMMARY | 2022-05-13 11:52 | XMS_ITS | Continuity of Care Document ---
:1935 Author Organization [facility] Adult Address [address] [place] [address]- Care Team Providers Name Role Phone Escobar CHASE, Landry Puentes Primary Care Physician [place] [facility] [place]20 [facility] Adult [address] [place] [address]- [facility] Allergies, Adverse Reactions, Alerts Substance Reaction Severity Status lisinopril Active penicillins Active sulfa drugs hives Active Bactrim Active Adhesive Bandage Active Immunizations Given and Recorded Vaccine Date Status Refusal Reason Influenza Virus Vaccine (oldterm) 06/01/19 Recorded pneumococcal 13-valent vaccine1 08/06/16 Recorded tetanus/diphtheria/pertussis, acel(Tdap) 01/17/14 Given Zostavax (oldterm)2 08/06/12 Recorded pneumococcal 23-valent vaccine3 08/06/08 Recorded 1Location History: Dr. SerranoSnpnypy6Rzopqqbb History: Dr. SerranoCdrbdvc1Qsbmgaof History: Dr. Serrano Medications albuterol-ipratropium 3 mg-0.5 [...] hours, # 10 tablet, 0 Refills, Maintenance, 04/01/20 14:57:00 EDT, [facility]/pharmacy #[id number], 165, cm, 04/01/20 13:58:00 EDT, Height Start Date: 04/01/20 Status: OrderedFLUoxetine 10 mg oral capsule 10 [...] 11 Refills, Maintenance, 11/27/19 16:40:00 EDT, Nasal [place], [facility]/pharmacy #0373, 2 sprays Nares, Both Daily, 165, cm, 08/20/19 11:09:00 EST, Height Start Date: 11/27/19 Status: Orderedgabapentin 100 mg oral capsule 100 mg, 1, capsule, By Mouth, 3 times a day, # 90 capsule, Refills 3, Tot. Refills 3, Maintenance, 04/21/20 13:09:00 EDT, Route to Pharmacy Electronically, [facility]/pharmacy #[id number], 165, cm, 04/01/20 13:58:00 EDT, Height Start Date: 04/21/20 Status: OrderedIncruse Ellipta = 62.5 mcg, Inhalation, Every 24 hours, 0 Refills, Maintenance, 07/10/17 12:12:03 Start Date: 07/10/17 Status: Orderedpantoprazole 40 mg oral delayed release tablet 1 tablet = 40 mg, By Mouth, Daily, # 90 tablet, 1 Refills, Maintenance, 03/26/20 11:28:00 EDT, EC Tablet, 165, cm, 08/20/19 11:09:00 EST, Height Start Date: 03/26/20 Status: OrderedVentolin 90 mcg Inhaler 2, puffs, [...] tablet, 5 Refills, Maintenance, 11/13/19 15:07:00 EDT,Tablet, [facility]/pharmacy #0373, 165, cm, 08/20/19 11:09:00 EST, Height Start Date: 11/13/19 Status: Ordered Problem List Condition Effective Dates Status Health Status Informant Asthma(Confirmed) Active Atrial fibrillation(Confirmed) Active Chronic anxiety(Confirmed) Active GERD (gastroesophageal reflux Active disease)(Confirmed) HTN (hypertension)(Confirmed) Active Insomnia(Confirmed) Active 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), 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, T1 N0, ER/[place] positive, 2003(Confirmed) COPD, moderate(Confirmed) Active Palpitations(Confirmed) Active Paroxysmal atrial Active fibrillation(Confirmed) Peripheral neuropathy(Confirmed) Active 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
--- OUTSIDE RECORDS SUMMARY | 2022-05-13 11:52 | XMS_ITS | Continuity of Care Document ---
:1935 Author Organization [facility] Adult Address [address] [place] [address]- Care Team Providers Name Role Phone Escobar CHASE, Landry Puentes Primary Care Physician Encounter [facility] [place] Date(s): 08/31/20 - 09/30/20 [facility] Adult [address] [place] [address]- Allergies, Adverse Reactions, Alerts Substance Reaction Severity Status lisinopril Active penicillins Active sulfa drugs hives Active Bactrim Active Adhesive Bandage Active Immunizations Given and Recorded Vaccine Date Status Refusal Reason Influenza Virus Vaccine (oldterm) 06/01/19 Recorded pneumococcal 13-valent vaccine1 08/06/16 Recorded tetanus/diphtheria/pertussis, acel(Tdap) 01/17/14 Given Zostavax (oldterm)2 08/06/12 Recorded pneumococcal 23-valent vaccine3 08/06/08 Recorded 1Location History: Dr. SerranoTtdrniz1Ymcxbgkq History: Dr. SerranoXagrpjs1Nhutwhut History: Dr. Serrano Medications albuterol-ipratropium 3 mg-0.5 [...] 11 Refills, Maintenance, 11/27/19 16:40:00 EDT, Nasal [place], [facility]/pharmacy #[id number], 2 sprays Nares, Both Daily, 165, cm, 08/20/19 11:09:00 EST, Height Start Date: 11/27/19 Status: Orderedgabapentin 100 mg oral capsule 100 mg, 1, capsule, By Mouth, 3 times a day, # 90 capsule, Refills 3, Tot. Refills 3, Maintenance, 04/21/20 13:09:00 EDT, Route to Pharmacy Electronically, [facility]/pharmacy #[id number], 165, cm, 04/01/20 13:58:00 EDT, Height Start Date: 04/21/20 Status: OrderedIncruse Ellipta = 62.5 mcg, Inhalation, Every 24 hours, 0 Refills, Maintenance, 07/10/17 12:12:03 Start Date: 07/10/17 Status: Orderedpantoprazole 40 mg oral delayed release tablet 1 tablet = 40 mg, By Mouth, Daily, # 90 tablet, 0 Refills, Maintenance, 09/21/20 7:56:00 EST, EC Tablet, 165, cm, 06/10/20 9:12:00 EST, Height Start Date: 09/21/20 Status: Orderedspironolactone 25 mg oral tablet 25 mg, 1, tablet, By Mouth, Daily, # 30 tablet, Refills 2, Tot. Refills 2, Maintenance, 09/23/20 10:12:00 EST, Route to Pharmacy Electronically, [facility]/pharmacy #[id number], Partial fill upon patient request ifthe prescription is for a schedule II opioid drug... 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
--- OUTSIDE RECORDS SUMMARY | 2022-05-13 11:52 | XMS_ITS | Continuity of Care Document ---
:1935 Author Organization [facility] Adult Address [address] [place] [address]- Care Team Providers Name Role Phone Escobar CHASE, Landry Puentes Primary Care Physician Encounter [facility] Date(s): 04/20/20 - 05/20/20 [facility] Adult [address] [place] [address]- [facility] Allergies, Adverse Reactions, Alerts Substance Reaction Severity Status lisinopril Active penicillins Active sulfa drugs hives Active Bactrim Active Adhesive Bandage Active Immunizations Given and Recorded Vaccine Date Status Refusal Reason Influenza Virus Vaccine (oldterm) 06/01/19 Recorded pneumococcal 13-valent vaccine1 08/06/16 Recorded tetanus/diphtheria/pertussis, acel(Tdap) 01/17/14 Given Zostavax (oldterm)2 08/06/12 Recorded pneumococcal 23-valent vaccine3 08/06/08 Recorded 1Location History: Dr. SerranoNwmxiva3Lnidftbk History: Dr. SerranoFboylvh2Umnuxbtb History: Dr. Serrano Medications albuterol-ipratropium 3 mg-0.5 [...] tablet, 0 Refills, Maintenance, 04/01/20 14:57:00 EDT, [facility]/pharmacy #[id number], 165, cm, 04/01/20 13:58:00 EDT, [...] 11 Refills, Maintenance, 11/27/19 16:40:00 EDT, [place], [facility]/pharmacy #[id number], 2 sprays Nares, Both Daily, 165, cm, 08/20/19 11:09:00 EST, Height Start Date: 11/27/19 Status: Orderedgabapentin 100 mg oral capsule 100 mg, 1, capsule, By Mouth, 3 times a day, # 90 capsule, Refills 3, Tot. Refills 3, Maintenance, 04/21/20 13:09:00 EDT, Route to Pharmacy Electronically, [facility]/pharmacy #[id number], 165, cm, 04/01/20 13:58:00 EDT, [...] tablet, 5 Refills, Maintenance, 05/12/20 13:06:00 EDT,Tablet, [facility]/pharmacy #[id number], 165, cm, 04/01/20 13:58:00 EDT, Height Start Date: 05/12/20 Status: Ordered Problem List Condition Effective Dates Status Health Status Informant Asthma(Confirmed) Active Atrial fibrillation(Confirmed) Active Chronic anxiety(Confirmed) Active GERD (gastroesophageal reflux Active disease)(Confirmed) HTN (hypertension)(Confirmed) Active Insomnia(Confirmed) Active 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
--- OUTSIDE RECORDS SUMMARY | 2022-05-13 11:52 | XMS_ITS | Continuity of Care Document ---
:1935 Author Organization [facility] Adult Address [address] [place] [address]- Care Team Providers Name Role Phone Landry Cody MD Primary Care Physician Encounter [facility] [place] Date(s): 01/30/22 - 02/06/22 [facility] Adult [address] [place] [address]- Attending Physician: Landry Cody MD Allergies, Adverse Reactions, Alerts Substance Reaction Severity Status lisinopril Active penicillins Active sulfa drugs hives Active Bactrim Active Adhesive Bandage Active Immunizations Given and Recorded Vaccine Date Status Refusal Reason SARS-CoV-2 mRNA (brpcwdy-jigi-lnoxe) vax 12/01/21 Recorde d SARS-CoV-2 (COVID-19) mRNA [...] 23-valent vaccine3 08/06/08 Recorded 1Location History: Dr. SerranoMouyhrh7Yzgmhdpi History: Dr. SerranoHksafli8Gahzxfpz History: Dr. Serrano Medications albuterol-ipratropium 3 mg-0.5 [...] # 48 mL, 3 Refills, [facility], 90, USE 2SPRAYS IN EACH NOSTRIL DAILY, [...] tablet, 5 Refills, Maintenance, 12/07/21 9:56:00 EDT, [facility]/pharmacy #[id number], 165, cm, 10/17/21 13:57:00 EDT, Height Start Date: 12/07/21 Status: Ordered Problem List Condition Effective Dates Status Health Status Informant Asthma(Confirmed) Active Atrial fibrillation(Confirmed) Active Chronic anxiety(Confirmed) Active GERD (gastroesophageal reflux Active disease)(Confirmed) HTN (hypertension)(Confirmed) Active Insomnia(Confirmed) Active 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), 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, T1 N0, ER/[place] positive, 2003(Confirmed) COPD, moderate(Confirmed) Active Palpitations(Confirmed) Active Paroxysmal atrial Active fibrillation(Confirmed) Peripheral edema(Confirmed) Active Peripheral neuropathy(Confirmed) Active Severe obesity(Confirmed) Active 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(Confirmed) Vital Signs Most recent to oldest [Reference Range]: 1 2 Height 165.00 cm 165.00 cm (01/30/22 2:06 PM) (01/30/22 1:56 PM) Weight 120.9 kg (01/30/22 1:56 PM) Oxygen Saturation [94-100 %] 95 % (01/30/22 1:56 PM) Pulse Rate [55-90 bpm] 72 bpm (01/30/22 1:56 PM) Body Mass Index [18.5-24.99] 44.41 *>HHI* (01/30/22 1:56 PM) Blood Pressure [90-138/55-84 mm Hg] 127/71 mm Hg 142/ 76 mm Hg (01/30/22 2:06 PM) *H* (01/30/22 1:56 PM) Mode of Delivery (Oxygen) Room air (01/30/22 1:56 PM) Blood pressure sites Arm, right Arm, right (01/30/22 2:06 PM) (01/30/22 1:56 PM) Weight Obtained Via Standing scale (01/30/22 1:56 PM) Social History Social History Type Response Smoking Status Never smoker entered on: 06/15/15 Sex
--- OUTSIDE RECORDS SUMMARY | 2022-05-13 11:52 | XMS_ITS | Continuity of Care Document ---
:1935 Author Organization [facility] Adult Address [address] [place] [address]- Care Team Providers Name Role Phone Escobar CHASE, Landry Puentes Primary Care Physician Encounter [facility] Date(s): 01/31/22 - 03/02/22 [facility] Adult [address] [place] [address]- Allergies, Adverse Reactions, Alerts Substance Reaction Severity Status lisinopril Active penicillins Active sulfa drugs hives Active Bactrim Active Adhesive Bandage Active Immunizations Given and Recorded Vaccine Date Status Refusal Reason SARS-CoV-2 mRNA (rtbvlmg-hehl-akkjw) vax 12/01/21 Recorde d SARS-CoV-2 (COVID-19) mRNA [...] 23-valent vaccine3 08/06/08 Recorded 1Location History: Dr. SerranoHbtpxvo6Uxdjvjio History: Dr. SerranoPaboejf9Pedyzfwa History: Dr. Serrano Medications albuterol-ipratropium 3 mg-0.5 [...] NOSTRIL DAILY, # 48 mL, 3 Refills, [facility] STORE 04812, 90, USE 2SPRAYS IN EACH NOSTRIL DAILY, [...] tablet, 5 Refills, Maintenance, 12/07/21 9:56:00 EDT, [facility]/pharmacy #[id number], 165, cm, 10/17/21 13:57:00 EDT, Height Start Date: 12/07/21 Status: Ordered Problem List Condition Effective Dates Status Health Status Informant Asthma(Confirmed) Active Atrial fibrillation(Confirmed) Active Chronic anxiety(Confirmed) Active GERD (gastroesophageal reflux Active disease)(Confirmed) HTN (hypertension)(Confirmed) Active Insomnia(Confirmed) Active 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
--- OUTSIDE RECORDS SUMMARY | 2022-05-13 11:52 | XMS_ITS | Continuity of Care Document ---
:1935 Author Organization [facility] Adult Address [address] [place] [address]- Care Team Providers Name Role Phone Ladnry Cody MD Primary Care Physician Encounter [facility] Date(s): 09/05/21 - 09/12/21 [facility] Adult [address] [place] [address]- Attending Physician: Landry Cody MD Allergies, Adverse Reactions, Alerts Substance Reaction Severity Status lisinopril Active penicillins Active Adhesive Bandage Active Bactrim Active sulfa drugs hives Active Immunizations Given [...] 23-valent vaccine3 08/06/08 Recorded 1Location History: Dr. SerranoBidxqkz2Inderrmi History: Dr. SerranoPkodwgt2Wfzpxwpn History: Dr. Serrano Medications albuterol-ipratropium 3 mg-0.5 [...] # 48 mL, 3 Refills, [facility], 90, USE 2SPRAYS IN EACH NOSTRIL DAILY, [...] Start Date: 01/27/21 Stop Date: 02/03/22 Status: OrderedMyrbetriq 50 mg oral tablet, extended release 1 tablet = 50 mg, By Mouth, Daily, Replaces 25 mg dose, # 90 tablet, 3 Refills, Maintenance, 07/11/21 15:36:00 EST, [facility]/pharmacy #[id number], Partial fill upon patient request if the prescription is for a schedule II opioid drug., 165, cm, 07/11/21 15:26:00... Start Date: 07/11/21 Status: Orderedpantoprazole 40 mg oral delayed release tablet 1 tablet, By Mouth, Daily, # 90 tablet, 0 Refills, 165, cm, 07/11/21 15:26:00 EST, Height Start Date: 08/25/21 Status: Orderedspironolactone 25 mg oral tablet 1, tablet, By Mouth, Daily, # 90 tablet, Refills 1, Tot. Refills 1, 08/23/21 16:05:00 EST, Route to Pharmacy Electronically, [facility]/pharmacy #[id number], 165, cm, 07/11/21 15:26:00 EST, Height Start Date: 08/23/21 Status: OrderedVentolin 90 mcg Inhaler 2, puffs, [...] tablet, 5 Refills, Maintenance, 11/12/20 16:32:00 EDT, [facility] STORE 42972, 165, cm, 10/27/20 10:30:00 EDT, Height Start Date: 11/12/20 Status: Ordered Problem List Condition Effective Dates Status Health Status Informant Asthma(Confirmed) Active Atrial fibrillation(Confirmed) Active Chronic anxiety(Confirmed) Active GERD (gastroesophageal reflux Active disease)(Confirmed) HTN (hypertension)(Confirmed) Active Insomnia(Confirmed) Active 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
--- OUTSIDE RECORDS SUMMARY | 2022-05-13 11:52 | XMS_ITS | Continuity of Care Document ---
:1935 Author Organization [facility] Address [address] [place] [address]- Care Team Providers Name Role Phone Landry Cody MD Primary Care Physician Encounter [id number] Date(s): 03/31/22 - 04/30/22 [facility] [address] [place] [address]- Attending Physician: Kim Marquez Admitting Physician: AdmtrKim Referring Physician: Admtr, [id number] Allergies, Adverse Reactions, Alerts Substance Reaction Severity Status lisinopril Active penicillins Active sulfa drugs hives Active Adhesive Bandage Active Bactrim Active Immunizations Given and Recorded Vaccine Date Status Refusal Reason SARS-CoV-2 mRNA (coxsflo-olqn-dxzkp) vax 12/01/21 Recorde d SARS-CoV-2 (COVID-19) mRNA [...] 23-valent vaccine3 08/06/08 Recorded 1Location History: Dr. SerranoGrbkoyl6Jrdghwnb History: Dr. SerranoNqrmvhp2Qbcxpldz History: Dr. Serrano Medications albuterol-ipratropium 3 mg-0.5 [...] # 48 mL, 3 Refills, [facility], 90, USE 2SPRAYS IN EACH NOSTRIL DAILY, [...] in PM, # 30 tablet, 5 Refills, [facility], 165, cm, 02/24/22 13:03:00EDT, Height Start Date: 03/08/22 Status: Ordered Problem List Condition Confirmation Course Effective Dates Status Health Stat us Informant Asthma Confirmed Active Atrial fibrillation Confirmed Active Chronic anxiety Confirmed Active GERD Confirmed Active (gastroesophageal reflux disease) HTN (hypertension) Confirmed Active Insomnia Confirmed Active Malignant Neoplasm Confirmed 03/07/04 Active of Breast (Female), left, T1 N0, ER/[place] positive, 2003 COPD, moderate Confirmed Active Palpitations Confirmed Active Paroxysmal atrial Confirmed Active fibrillation Peripheral edema Confirmed Active Peripheral Confirmed Active neuropathy Severe obesity Confirmed Active 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 Social History Social History Type Response Smoking Status Never smoker entered on: 06/15/15 Sex Patient Care team information PersonnelName: Escobar CHASE, Landry Puentes Address: Address: [address] [place] [id number]
--- OUTSIDE RECORDS SUMMARY | 2022-05-13 11:52 | XMS_ITS | Continuity of Care Document ---
:1935 Author Organization [facility] Adult Address [address] [place] [address]- Care Team Providers Name Role Phone Escobar CHASE, Landry Puentes Primary Care Physician [place] [facility] [place] 09/08[place]21 - 10/08/21 [facility] Adult [address] [place] [address]- Allergies, Adverse Reactions, Alerts Substance Reaction Severity [...] 23-valent vaccine3 08/06/08 Recorded 1Location History: Dr. SerranoGgwbqpj5Lutvbkvf History: Dr. SerranoLojduub8Laaduxyw History: Dr. Serrano Medications albuterol-ipratropium 3 mg-0.5 mg/3 ml inhalation solution 3 mL, Neb, 4 times a day, PRN Wheezing/Shortness of Breath, DX:R06.2, # 60 each, 5 Refills, Maintenance, 11/14/19 11:56:00 EDT, Solution, [facility]/pharmacy #[id number], 3 mL Neb 4 times a [...] NOSTRIL DAILY, # 48 mL, 3 Refills, [facility] STORE 05058, 90, USE 2SPRAYS IN EACH NOSTRIL DAILY, 165, cm, 05/06/21 15:57:00 EDT, Height Start Date: 06/07/21 Status: Orderedgabapentin 300 mg oral capsule 300 mg, 1, capsule, By Mouth, 3 times a day, # 270 capsule, Refills 0, Maintenance, 09/14/21 9:10:00EST, Partial fill upon patient request if the prescription is for a schedule II opioid drug. Start Date: 09/14/21 Status: OrderedLORazepam 1 mg oral tablet 1 tablet = 1 mg, By Mouth, Daily, PRN as needed for anxiety, # 20 tablet, 0 Refills, Acute 02/03/22 8:00:00 EDT, 01/27/21 6:40:00 EDT, [facility]/pharmacy #[id number], Partial fill upon patient request if [...] EST, Height Start Date: 08/25/21 Status: Orderedspironolactone 50 mg oral tablet 1 tablet = 50 mg, By Mouth, Daily, # 90 tablet, 1 Refills, Maintenance, 09/29/21 11:56:00 EST, [facility]/pharmacy #[id number], Partial fill upon patient request if the prescription is for a schedule II opioid drug., 165, cm, 09/29/21 11:29:00 EST, Height Start Date: 09/29/21 Status: OrderedVentolin 90 mcg Inhaler 2, puffs, [...] Refills, Maintenance, 11/12/20 16:32:00 EDT, [facility], 165, cm, 10/27/20 10:30:00 EDT, Height Start Date: 11/12/20 Status: Ordered Problem List Condition Effective Dates Status Health Status Informant Asthma(Confirmed) Active Atrial fibrillation(Confirmed) Active Chronic anxiety(Confirmed) Active GERD (gastroesophageal reflux Active disease)(Confirmed) HTN (hypertension)(Confirmed) Active Insomnia(Confirmed) Active 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
--- OUTSIDE RECORDS SUMMARY | 2022-05-13 11:52 | XMS_ITS | Continuity of Care Document ---
:1935 Author Organization [facility] Adult Address [address] [place] [address]- Care Team Providers Name Role Phone Escobar CHASE, Landry Puentes Primary Care Physician Encounter [facility] [place] Date(s): 03/15/22 - 04/14/22 [facility] Adult [address] [place] [address]- Allergies, Adverse Reactions, Alerts Substance Reaction Severity Status lisinopril Active penicillins Active Bactrim Active Adhesive Bandage Active sulfa drugs hives Active Immunizations Given and Recorded Vaccine Date Status Refusal Reason SARS-CoV-2 mRNA (tsttayj-pzsa-gxnwd) vax 12/01/21 Recorde d SARS-CoV-2 (COVID-19) mRNA [...] 23-valent vaccine3 08/06/08 Recorded 1Location History: Dr. SerranoTpnzzgv2Vgjqhznb History: Dr. SerranoDjomsgt3Duhrjeei History: Dr. Serrano Medications albuterol-ipratropium 3 mg-0.5 [...] NOSTRIL DAILY, # 48 mL, 3 Refills, [facility] STORE 12782, 90, USE 2SPRAYS IN EACH NOSTRIL DAILY, [...] # 30 tablet, 5 Refills, [facility], 165, cm, 02/24/22 13:03:00EDT, Height Start Date: 03/08/22 Status: Ordered Problem List Condition Effective Dates [...] Status Never smoker entered on: 06/15/15 Sex Care Team PersonnelName: Landry Cody MD Address: [address] [place] [id number]
--- OUTSIDE RECORDS SUMMARY | 2022-05-13 11:52 | XMS_ITS | Continuity of Care Document ---
:1935 Author Organization [facility] Adult Address [address] [place] [address]- Care Team Providers Name Role Phone Escobar CHASE, Landry Puentes Primary Care Physician Encounter [facility] Date(s): 02/10/22 - 03/12/22 [facility] Adult [address] [place] [address]- Allergies, Adverse Reactions, Alerts Substance Reaction Severity Status lisinopril Active penicillins Active sulfa drugs hives Active Bactrim Active Adhesive Bandage Active Immunizations Given and Recorded Vaccine Date Status Refusal Reason SARS-CoV-2 mRNA (rcgspmw-qmra-mjlpv) vax 12/01/21 Recorde d SARS-CoV-2 (COVID-19) mRNA [...] 23-valent vaccine3 08/06/08 Recorded 1Location History: Dr. SerranoSzgfpuj7Ltgtgmmv History: Dr. SerranoBcnfjsk2Hnqmlsez History: Dr. Serrano Medications albuterol-ipratropium 3 mg-0.5 [...] DAILY, # 48 mL, 3 Refills, [facility] STORE 93809, 90, USE 2SPRAYS IN EACH NOSTRIL DAILY, [...] in PM, # 30 tablet, 5 Refills, [facility] 164[facility], 165, cm, 02/24/22 13:03:00EDT, Height Start Date: [...]
--- OUTSIDE RECORDS SUMMARY | 2022-05-13 11:52 | XMS_ITS | Continuity of Care Document ---
:1935 Author Organization [facility] Adult Address [address] [place] [address]- Care Team Providers Name Role Phone Landry Cody MD Primary Care Physician Encounter [facility] [place] Date(s): 03/23/22 - 04/22/22 [facility] Adult [address] [place] [address]- Allergies, Adverse Reactions, Alerts Substance Reaction Severity Status lisinopril Active penicillins Active sulfa drugs hives Active Bactrim Active Adhesive Bandage Active Immunizations Given and Recorded Vaccine Date Status Refusal Reason SARS-CoV-2 mRNA (ckoxfar-attw-spndv) vax 12/01/21 Recorde d SARS-CoV-2 (COVID-19) mRNA [...] 23-valent vaccine3 08/06/08 Recorded 1Location History: Dr. SerranoAbxqzag2Pibguprr History: Dr. SerranoXptgvuh2Dhcmlslt History: Dr. Serrano Medications albuterol-ipratropium 3 mg-0.5 [...] NOSTRIL DAILY, # 48 mL, 3 Refills, [facility] STORE 84221, 90, USE 2SPRAYS IN EACH NOSTRIL DAILY, [...] # 30 tablet, 5 Refills, [facility], 165, cm, 02/24/22 13:03:00EDT, Height Start Date: 03/08/22 Status: Ordered Problem List Condition Confirmation Course Effective Dates Status Health Stat us Informant Asthma Confirmed Active Atrial fibrillation Confirmed Active Chronic anxiety Confirmed Active GERD Confirmed Active (gastroesophageal reflux disease) HTN (hypertension) Confirmed Active Insomnia Confirmed Active Malignant Neoplasm Confirmed 03/07/04 Active of Breast (Female), left, T1 N0, ER/[place] positive, 2003 COPD, moderate Confirmed Active Palpitations Confirmed Active Paroxysmal atrial Confirmed Active fibrillation Peripheral edema Confirmed Active Peripheral Confirmed Active neuropathy Severe obesity Confirmed Active 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 Social History Social History Type Response Smoking Status Never smoker entered on: 06/15/15 Sex Patient Care team information PersonnelName: Escobar CHASE, Landry Puentes Address: Address: [address] [place] [id number]
--- OUTSIDE RECORDS SUMMARY | 2022-05-13 11:52 | XMS_ITS | Continuity of Care Document ---
:1935 Author Organization [facility] Address [address] [place] [address]- Care Team Providers Name Role Phone Landry Cody MD Primary Care Physician [place] [facility] 02/20/22 - 03/22/22 [facility] [address] [place] [address]- Allergies, Adverse Reactions, Alerts Substance Reaction Severity Status lisinopril Active penicillins Active sulfa drugs hives Active Bactrim Active Adhesive Bandage Active Immunizations Given and Recorded Vaccine Date Status Refusal Reason SARS-CoV-2 mRNA (gzyylzz-qdin-zbukj) vax 12/01/21 Recorde d SARS-CoV-2 (COVID-19) mRNA [...] 23-valent vaccine3 08/06/08 Recorded 1Location History: Dr. SerranoQverled9Qwkdjwmj History: Dr. SerranoTolzwzq9Jdkjddhu History: Dr. 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
--- OUTSIDE RECORDS SUMMARY | 2022-05-13 11:52 | XMS_ITS | Continuity of Care Document ---
:1935 Author Organization [facility] Adult Address [address] [place] [address]- Care Team Providers Name Role Phone Landry Cody MD Primary Care Physician Encounter [facility] [place] Date(s): 10/27/20 - 11/03/20 [facility] Adult [address] [place] [address]- Attending Physician: Landry Cody MD Allergies, Adverse Reactions, Alerts Substance Reaction Severity Status lisinopril Active penicillins Active sulfa drugs hives Active Bactrim Active Adhesive Bandage Active Immunizations Given and Recorded Vaccine Date Status Refusal Reason Influenza Virus Vaccine (oldterm) 06/01/19 Recorded pneumococcal 13-valent vaccine1 08/06/16 Recorded tetanus/diphtheria/pertussis, acel(Tdap) 01/17/14 Given Zostavax (oldterm)2 08/06/12 Recorded pneumococcal 23-valent vaccine3 08/06/08 Recorded 1Location History: Dr. SerranoWwbudqj9Xzvkoilb History: Dr. SerranoFuurada9Zspozarl History: Dr. Serrano Medications albuterol-ipratropium 3 mg-0.5 [...] 11 Refills, Maintenance, 11/27/19 16:40:00 EDT, Nasal [place], [facility]/pharmacy #[id number], 2 sprays Nares, Both Daily, 165, cm, 08/20/19 11:09:00 EST, Height Start Date: 11/27/19 Status: Orderedgabapentin 100 mg oral capsule 100 mg, 1, capsule, By Mouth, 3 times a day, # 90 capsule, Refills 3, Tot. Refills 3, Maintenance, 04/21/20 13:09:00 EDT, Route to Pharmacy Electronically, [facility]/pharmacy #[id number], 165, cm, 04/01/20 13:58:00 EDT, Height [...] 09/23/20 10:12:00 EST, Route to Pharmacy Electronically, [facility]/pharmacy #[id number], Partial fill upon patient request ifthe [...] tablet, 5 Refills, Maintenance, 05/12/20 13:06:00 EDT,Tablet, [facility]/pharmacy #[id number], 165, cm, 04/01/20 13:58:00 EDT, Height Start Date: 05/12/20 Status: Ordered Problem List Condition Effective Dates Status Health Status Informant Asthma(Confirmed) Active Atrial fibrillation(Confirmed) Active Chronic anxiety(Confirmed) Active GERD (gastroesophageal reflux Active disease)(Confirmed) HTN (hypertension)(Confirmed) Active Insomnia(Confirmed) Active 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), 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, 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, ER/[place] positive, 2003(Confirmed) COPD, moderate(Confirmed) Active Palpitations(Confirmed) Active Paroxysmal atrial Active fibrillation(Confirmed) Peripheral edema(Confirmed) Active Peripheral neuropathy(Confirmed) Active 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(Confirmed) Vital Signs Most recent to oldest [Reference Range]: 1 Height 165.00 cm (10/27/20 10:30 AM) Weight 115.6 kg (10/27/20 10:30 AM) Oxygen Saturation [94-100 %] 95 % (10/27/20 10:30 AM) Pulse Rate [55-90 bpm] 77 bpm (10/27/20 10:30 AM) Body Mass Index [18.5-24.99] 42.46 *>HHI* (10/27/20 10:30 AM) Blood Pressure [90-138/55-84 mm Hg] 128/88 mm Hg (10/27/20 10:30 AM) Temperature [96.8-100.4 DegF] 97.5 DegF (10/27/20 10:30 AM) Blood pressure sites Arm, left (10/27/20 10:30 AM) Temperature Route Oral (10/27/20 10:30 AM) Weight Obtained Via Standing scale (10/27/20 10:30 AM) Social History Social History Type Response Smoking Status Never smoker entered on: 06/15/15 Sex
--- OUTSIDE RECORDS SUMMARY | 2022-05-13 11:52 | XMS_ITS | Continuity of Care Document ---
:1935 Author Organization [facility] Adult Address [address] [place] [address]- Care Team Providers Name Role Phone Escobar CHASE, Landry Puentes Primary Care Physician Encounter [facility] [place] Date(s): 04/01/20 - 05/01/20 [facility] Adult [address] [place] [address]- [facility] Allergies, Adverse Reactions, Alerts Substance Reaction Severity Status lisinopril Active penicillins Active sulfa drugs hives Active Bactrim Active Adhesive Bandage Active Immunizations Given and Recorded Vaccine Date Status Refusal Reason Influenza Virus Vaccine (oldterm) 06/01/19 Recorded pneumococcal 13-valent vaccine1 08/06/16 Recorded tetanus/diphtheria/pertussis, acel(Tdap) 01/17/14 Given Zostavax (oldterm)2 08/06/12 Recorded pneumococcal 23-valent vaccine3 08/06/08 Recorded 1Location History: Dr. SerranoPhjteqm3Pvtbvork History: Dr. SerranoLfxxytu8Mypltrpy History: Dr. Serrano Medications albuterol-ipratropium 3 mg-0.5 [...] tablet, 0 Refills, Maintenance, 04/01/20 14:57:00 EDT, [facility]/pharmacy #[id number], 165, cm, 04/01/20 13:58:00 [...] 11 Refills, Maintenance, 11/27/19 16:40:00 EDT, Nasal [place], [facility]/pharmacy #[id number], 2 sprays Nares, Both Daily, 165, cm, 08/20/19 11:09:00 EST, Height Start Date: 11/27/19 Status: Orderedgabapentin 100 mg oral capsule 100 mg, 1, capsule, By Mouth, 3 times a day, # 90 capsule, Refills 3, Tot. Refills 3, Maintenance, 04/21/20 13:09:00 EDT, Route to Pharmacy Electronically, [facility]/pharmacy #[id number], 165, cm, 04/01/20 13:58:00 [...] tablet, 5 Refills, Maintenance, 11/13/19 15:07:00 EDT,Tablet, [facility]/pharmacy #[id number], 165, cm, 08/20/19 11:09:00 EST, Height Start Date: 11/13/19 Status: Ordered Problem List Condition Effective Dates Status Health Status Informant Asthma(Confirmed) Active Atrial fibrillation(Confirmed) Active Chronic anxiety(Confirmed) Active GERD (gastroesophageal reflux Active disease)(Confirmed) HTN (hypertension)(Confirmed) Active Insomnia(Confirmed) Active 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
--- OUTSIDE RECORDS SUMMARY | 2022-05-13 11:52 | XMS_ITS | Continuity of Care Document ---
:1935 Author Organization [facility] Adult Address [address] [place] [address]- Care Team Providers Name Role Phone Escobar CHASE, Landry Puentes Primary Care Physician Encounter [facility] [place] Date(s): 03/03/22 - 04/02/22 [facility] Adult [address] [place] [address]- Allergies, Adverse Reactions, Alerts Substance Reaction Severity Status lisinopril Active penicillins Active sulfa drugs hives Active Bactrim Active Adhesive Bandage Active Immunizations Given and Recorded Vaccine Date Status Refusal Reason SARS-CoV-2 mRNA (zvzdcde-eoed-uddvl) vax 12/01/21 Recorde d SARS-CoV-2 (COVID-19) mRNA [...] Recorded tetanus/diphtheria/pertussis, acel(Tdap) 01/17/14 Given Zostavax (oldterm)2 1/15/13 Recorded pneumococcal 23-valent vaccine3 08/06/08 Recorded 1Location History: Dr. SerranoBzanilm9Gscffidg History: Dr. SerranoIzjtlro0Prrbhzht History: Dr. Serrano Medications albuterol-ipratropium 3 mg-0.5 [...] NOSTRIL DAILY, # 48 mL, 3 Refills, [id number], 90, USE 2SPRAYS IN EACH NOSTRIL DAILY, [...] in PM, # 30 tablet, 5 Refills, [facility] ST[id number], 165, cm, 02/24/22 13:03:00EDT, Height Start Date: [...] Care Team PersonnelName: Landry Cody MD Address: [address] [place] [id number]
--- OUTSIDE RECORDS SUMMARY | 2022-05-13 11:52 | XMS_ITS | Continuity of Care Document ---
:1935 Author Organization [facility] Adult Address [address] [place] [address]- Care Team Providers Name Role Phone Landry Cody MD Primary Care Physician Encounter [facility] Date(s): 08/20/19 - 08/27/19 [facility] Adult [address] [place] [address]- [facility] Attending Physician: Landry Cody MD Allergies, Adverse Reactions, Alerts Substance Reaction Severity Status lisinopril Active penicillins Active sulfa drugs hives Active Bactrim Active Adhesive Bandage Active Immunizations Given and Recorded Vaccine Date Status Refusal Reason Influenza Virus Vaccine (oldterm) 06/01/19 Recorded pneumococcal 13-valent vaccine1 08/06/16 Recorded tetanus/diphtheria/pertussis, acel(Tdap) 01/17/14 Given Zostavax (oldterm)2 08/06/12 Recorded pneumococcal 23-valent vaccine3 08/06/08 Recorded 1Location History: Dr. SerranoLwmwvuv6Jpqkoitv History: Dr. SerranoRbrtncg0Sfwxwegt History: Dr. Serrano Medications B-Complex SR oral tablet, extended release By Mouth, Daily, 0 Refills, Maintenance, 06/30/19 11:06:14 EST Start Date: 06/30/19 Status: OrderedColace sodium 100 mg oral capsule 100 mg, 1, capsule, By Mouth, 2 times a day, PRN, # 20 capsule, Refills 0, Maintenance, for constipation, 02/07/19 10:36:17 EDT Start Date: 02/07/19 Status: OrderedFLUoxetine 10 mg oral capsule 10 mg, 1, capsule, By Mouth, Daily, # 30 capsule, Refills 0, Maintenance, 02/07/19 10:37:38 EDT Start Date: 02/07/19 Status: OrderedFLUoxetine 20 mg oral capsule 20 mg, 1, capsule, By Mouth, Daily, # 60 capsule, Refills 0, Maintenance, 02/07/19 10:37:26 EDT Start Date: 02/07/19 Status: Orderedfluticasone 50 mcg/inh nasal spray 2 sprays, Nares, Both, Daily, # 16 Gm, 0 Refills, Maintenance, 06/30/19 11:06:50 EST, [place] Start Date: 06/30/19 Status: OrderedhydrOXYzine hydrochloride 25 mg oral tablet See Instructions, 1 tablet By Mouth 15 to 30 minutes prior to dental work, # 10 tablet, 0 Refills, Acute 09/20/19 17:00:00 EST, 08/20/19 16:59:00 EST, [facility]/pharmacy #[id number], 165, cm, 08/20/19 11:09:00 EST, Height Start Date: 08/20/19 Stop Date: 09/20/19 Status: OrderedIncruse Ellipta = 62.5 mcg, Inhalation, [...] Mouth, Daily in PM, # 30 tablet, 0 Refills, Maintenance, 06/30/19 11:06:24 EST,Tablet Start Date: 06/30/19 Status: Ordered Problem List Condition Effective Dates Status Health Status Informant Asthma(Confirmed) Active Atrial fibrillation(Confirmed) Active Chronic anxiety(Confirmed) Active GERD (gastroesophageal reflux Active disease)(Confirmed) HTN (hypertension)(Confirmed) Active Insomnia(Confirmed) Active 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), 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, T1 N0, ER/[place] positive, 2003(Confirmed) COPD, moderate(Confirmed) Active Palpitations(Confirmed) Active Paroxysmal atrial Active fibrillation(Confirmed) Peripheral neuropathy(Confirmed) Active 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(Confirmed) Vital Signs Most recent to oldest [Reference Range]: 1 Height 165.00 cm (08/20/19 11:09 AM) Weight 106.9 kg (08/20/19 11:09 AM) Oxygen Saturation [94-100 %] 98 % (08/20/19 11:09 AM) Pulse Rate [55-90 bpm] 62 bpm (08/20/19 11:09 AM) Body Mass Index [18.5-24.99] 39.27 *>HHI* (08/20/19 11:09 AM) Blood Pressure [90-138/55-84 mm Hg] 120/70 mm Hg (08/20/19 11:09 AM) Temperature [96.8-100.4 DegF] 97.6 DegF (08/20/19 11:09 AM) Mode of Delivery (Oxygen) Room air (08/20/19 11:09 AM) Blood pressure sites Arm, right (08/20/19 11:09 AM) Temperature Route Oral (08/20/19 11:09 AM) Weight Obtained Via Standing scale (08/20/19 11:09 AM) Social History Social History Type Response Smoking Status Never smoker entered on: 06/15/15 Sex
--- OUTSIDE RECORDS SUMMARY | 2022-05-13 11:52 | XMS_ITS | Continuity of Care Document ---
:[address] [facility] Adult Address [address] [place] [address]- Care Team Providers Name Role Phone Escobar CHASE, Landry Puentes Primary Care Physician Encounter [facility] [place] Date(s): 10/27/21 - 11/26/21 [facility] Adult [address] [place] [address]- Allergies, Adverse Reactions, Alerts Substance Reaction Severity [...] 23-valent vaccine3 08/06/08 Recorded 1Location History: Dr. SerranoVojgznn7Ugyhazgd History: Dr. SerranoMieqbac3Sgaavxkf History: Dr. Serrano Medications albuterol-ipratropium 3 mg-0.5 mg/3 ml inhalation solution 3 mL, Neb, 4 times a day, PRN Wheezing/Shortness of Breath, DX:R06.2, # 60 each, 5 Refills, Maintenance, 11/14/19 11:56:00 EDT, Solution, [facility]/pharmacy #[id number], 3 mL Neb 4 times a [...] NOSTRIL DAILY, # 48 mL, 3 Refills, [id number], 90, USE 2SPRAYS IN EACH NOSTRIL DAILY, [...] Acute 02/03/22 8:00:00 EDT, 01/27/21 6:40:00 EDT, [facility]/pharmacy #[id number], Partial fill upon patient request if the prescription is for a schedule II opioid drug., 165, cm... Start Date: 01/27/21 Stop Date: 02/03/22 Status: OrderedMyrbetriq 50 mg oral tablet, extended release 1 tablet = 50 mg, By Mouth, Daily, Replaces 25 mg dose, # 90 tablet, 3 Refills, Maintenance, 07/11/21 15:36:00 EST, [facility]/pharmacy #[id number], Partial fill upon patient request if [...] tablet, 1 Refills, Maintenance, 09/29/21 11:56:00 EST, [facility]/pharmacy #[id number], Partial fill upon patient request if [...] Refills, Maintenance, 11/12/20 16:32:00 EDT, [id number], 165, cm, 10/27/20 10:30:00 EDT, Height Start [...]
--- OUTSIDE RECORDS SUMMARY | 2022-05-13 11:52 | XMS_ITS | Continuity of Care Document ---
:1935 Author Organization [facility] Adult Address [address] [place] [address]- Care Team Providers Name Role Phone Escobar CHASE, Landry Puentes Primary Care Physician Encounter [facility] Date(s): 02/03/22 - 03/05/22 [facility] Adult [address] [place] [address]- Allergies, Adverse Reactions, Alerts Substance Reaction Severity Status lisinopril Active penicillins Active sulfa drugs hives Active Bactrim Active Adhesive Bandage Active Immunizations Given and Recorded Vaccine Date Status Refusal Reason SARS-CoV-2 mRNA (gaqawtl-szcl-qtncj) vax 12/01/21 Recorde d SARS-CoV-2 (COVID-19) mRNA [...] 23-valent vaccine3 08/06/08 Recorded 1Location History: Dr. SerranoSxawpvp9Ajbgpxbg History: Dr. SerranoZpwcevh4Ecaohedu History: Dr. Serrano Medications albuterol-ipratropium 3 mg-0.5 [...] NOSTRIL DAILY, # 48 mL, 3 Refills, [id number], 90, USE 2SPRAYS IN EACH NOSTRIL DAILY, [...] tablet, 5 Refills, Maintenance, 12/07/21 9:56:00 EDT, [facility]/pharmacy #[id number], 165, cm, 10/17/21 13:57:00 EDT, [...]
--- OUTSIDE RECORDS SUMMARY | 2022-05-13 11:52 | XMS_ITS | Continuity of Care Document ---
:1935 Author Organization [facility] Address [address] [place] [address]- Care Team Providers Name Role Phone Landry Cody MD Primary Care Physician Encounter [facility] [place] Date(s): 07/02/19 - 09/13/[address] [address]- [facility] Attending Physician: Landry Cody MD Admitting Physician: Landry Cody MD Referring Physician: Landry Cody MD Allergies, Adverse Reactions, Alerts Substance Reaction Severity Status lisinopril Active penicillins Active sulfa drugs hives Active Bactrim Active Adhesive Bandage Active Immunizations Given and Recorded Vaccine Date Status Refusal Reason Influenza Virus Vaccine (oldterm) 06/01/19 Recorded pneumococcal 13-valent vaccine1 08/06/16 Recorded tetanus/diphtheria/pertussis, acel(Tdap) 01/17/14 Given Zostavax (oldterm)2 08/06/12 Recorded pneumococcal 23-valent vaccine3 08/06/08 Recorded 1Location History: Dr. SerranoEvdqzzh3Zwhlsmlg History: Dr. SerranoTdmrsyi0Ltdagixx History: Dr. Serrano Medications B-Complex SR oral [...] Gm, 0 Refills, Maintenance, 06/30/19 11:06:50 EST, [place] Start Date: 06/30/19 Status: OrderedhydrOXYzine hydrochloride 25 mg oral tablet See Instructions, 1 tablet By Mouth 15 to 30 minutes prior to dental work, # 10 tablet, 0 Refills, Acute 09/20/19 17:00:00 EST, 08/20/19 16:59:00 EST, [facility]/pharmacy #[id number], 165, cm, 08/20/19 11:09:00 EST, Height Start Date: 08/20/19 Stop Date: 09/20/19 Status: OrderedIncruse Ellipta = 62.5 mcg, Inhalation, Every 24 hours, 0 Refills, Maintenance, 07/10/17 12:12:03 Start Date: 07/10/17 Status: OrderedLyrica 25 mg oral capsule 1 capsule = 25 mg, By Mouth, Daily at bedtime, # 30 capsule, 2 Refills, Maintenance, 09/01/19 7:40:00 EST, [facility]/pharmacy #[id number], 165, cm, 08/20/19 11:09:00 EST, Height Start Date: 09/01/19 Status: Orderedpantoprazole 40 mg oral delayed release [...] Breast (Female), 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, T1 N0, ER/[place] positive, 2003(Confirmed) COPD, moderate(Confirmed) Active Palpitations(Confirmed) Active Paroxysmal atrial Active fibrillation(Confirmed) Peripheral neuropathy(Confirmed) Active 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
--- OUTSIDE RECORDS SUMMARY | 2022-05-13 11:52 | XMS_ITS | Continuity of Care Document ---
:[address] [facility] Adult Address [address] [place] [address]- Care Team Providers Name Role Phone Escobar CHASE, Landry Puentes Primary Care Physician Encounter [facility] [place] Date(s): 07/30/20 - 08/29/20 [facility] [address] [place] [address]- Allergies, Adverse Reactions, Alerts Substance Reaction Severity Status lisinopril Active penicillins Active sulfa drugs hives Active Bactrim Active Adhesive Bandage Active Immunizations Given and Recorded Vaccine Date Status Refusal Reason Influenza Virus Vaccine (oldterm) 06/01/19 Recorded pneumococcal 13-valent vaccine1 08/06/16 Recorded tetanus/diphtheria/pertussis, acel(Tdap) 01/17/14 Given Zostavax (oldterm)2 08/06/12 Recorded pneumococcal 23-valent vaccine3 08/06/08 Recorded 1Location History: Dr. SerranoArgdmua4Wkalwmry History: Dr. SerranoNuxhaxb1Evqehtzs History: Dr. Serrano Medications albuterol-ipratropium 3 mg-0.5 [...] 11 Refills, Maintenance, 11/27/19 16:40:00 EDT, Nasal [place], [facility]/pharmacy #[id number], 2 sprays Nares, Both Daily, 165, cm, 08/20/19 11:09:00 EST, Height Start Date: 11/27/19 Status: Orderedgabapentin 100 mg oral capsule 100 mg, 1, capsule, By Mouth, 3 times a day, # 90 capsule, Refills 3, Tot. Refills 3, Maintenance, 04/21/20 13:09:00 EDT, Route to Pharmacy Electronically, [facility]/pharmacy #[id number], 165, cm, 04/01/20 13:58:00 EDT, Height [...] tablet, 5 Refills, Maintenance, 05/12/20 13:06:00 EDT,Tablet, [id number], 165, cm, 04/01/20 13:58:00 EDT, Height Start Date: 05/12/20 Status: Ordered Problem List Condition Effective Dates Status Health Status Informant Asthma(Confirmed) Active Atrial fibrillation(Confirmed) Active Chronic anxiety(Confirmed) Active GERD (gastroesophageal reflux Active disease)(Confirmed) HTN (hypertension)(Confirmed) Active Insomnia(Confirmed) Active 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), 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, T1 N0, ER/[place] positive, 2003(Confirmed) COPD, moderate(Confirmed) Active Palpitations(Confirmed) Active Paroxysmal atrial Active fibrillation(Confirmed) Peripheral neuropathy(Confirmed) Active 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
--- OUTSIDE RECORDS SUMMARY | 2022-05-13 11:52 | XMS_ITS | Continuity of Care Document ---
:1935 Author Organization [facility] Adult Address [address] [place] [address]- Care Team Providers Name Role Phone Escobar CHASE, Landry Puentes Primary Care Physician Encounter [facility] [place] Date(s): 02/03/22 - 03/05/22 [facility] Adult [address] [place] [address]- Allergies, Adverse Reactions, Alerts Substance Reaction Severity Status lisinopril Active penicillins Active sulfa drugs hives Active Bactrim Active Adhesive Bandage Active Immunizations Given and Recorded Vaccine Date Status Refusal Reason SARS-CoV-2 mRNA (enyvsjf-aoie-lvpdm) vax 12/01/21 Recorde d SARS-CoV-2 (COVID-19) mRNA [...] 23-valent vaccine3 08/06/08 Recorded 1Location History: Dr. SerranoSzogefw5Kqrmtcga History: Dr. SerranoJhtehyn2Qooecxzh History: Dr. Serrano Medications albuterol-ipratropium 3 mg-0.5 [...] NOSTRIL DAILY, # 48 mL, 3 Refills, [facility] [id number], 90, USE 2SPRAYS IN EACH NOSTRIL DAILY, [...] tablet, 5 Refills, Maintenance, 12/07/21 9:56:00 EDT, [facility]/pharmacy #[id number], 165, cm, 10/17/21 13:57:00 EDT, Height Start Date: 12/07/21 Status: Ordered Problem List Condition Effective Dates Status Health Status Informant Asthma(Confirmed) Active Atrial fibrillation(Confirmed) Active Chronic anxiety(Confirmed) Active GERD (gastroesophageal reflux Active disease)(Confirmed) HTN (hypertension)(Confirmed) Active Insomnia(Confirmed) Active 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), 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, T1 N0, ER/[place] positive, 2003(Confirmed) COPD, moderate(Confirmed) Active Palpitations(Confirmed) Active Paroxysmal atrial Active fibrillation(Confirmed) Peripheral edema(Confirmed) Active Peripheral neuropathy(Confirmed) Active Severe obesity(Confirmed) Active 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
[2022-05-13 11:53] LABS: Ferritin 36 ng/mL (10-250)
--- OUTSIDE RECORDS SUMMARY | 2022-05-13 11:53 | XMS_ITS | Continuity of Care Document ---
:1935 Author Organization [facility] Adult Address [address] [place] [address]- Care Team Providers Name Role Phone Landry Cody MD Primary Care Physician En[place] [facility] [place](s): 03/11/21 - 03/18/21 [facility] Adult [address] [place] [address]- Attending Physician: Landry Cody MD Allergies, Adverse [...] 23-valent vaccine3 08/06/08 Recorded 1Location History: Dr. SerranoPbhstez8Zewtnnpd History: Dr. SerranoBkgmkqh2Velckyiu History: Dr. Serrano Medications albuterol-ipratropium 3 mg-0.5 [...] tablet, 0 Refills, Maintenance, 12/22/20 13:11:00 EDT, [facility]/pharmacy #[id number], 165, cm, 10/27/20 10:30:00 EDT, Height [...] 11 Refills, Maintenance, 11/27/19 16:40:00 EDT, Nasal [place], [facility]/pharmacy #[id number], 2 sprays Nares, Both Daily, 165, cm, 08/20/19 11:09:00 EST, Height Start Date: 11/27/19 Status: Orderedgabapentin 300 mg oral capsule 300 mg, 1, capsule, By Mouth, 3 times a day, # 270 capsule, Refills 3, Tot. Refills 3, Maintenance, 01/27/21 6:43:00 EDT, Route to Pharmacy Electronically, [facility]/pharmacy #[id number], Partial fill upon patientrequest if the [...] Date: 01/27/21 Stop Date: 02/03/22 Status: OrderedMyrbetriq 25 mg oral tablet, extended release 1 tablet = 25 mg, By Mouth, Daily at bedtime, # 30 tablet, 5 Refills, Maintenance, 03/11/21 9:40:00 EDT, [facility]/pharmacy #[id number], Partial fill upon patient request if the prescription is for a schedule II opioid drug., 165, cm, 03/11/21 9:11:00 EDT, Height Start Date: 03/11/21 Status: Orderedpantoprazole 40 mg oral delayed release tablet 1 tablet, By Mouth, Daily, # 90 tablet, 0 Refills, 165, cm, 03/11/21 9:11:00 EDT, Height Start Date: 03/11/21 Status: Orderedspironolactone 25 mg oral tablet 1, tablet, By Mouth, Daily, # 90 tablet, Refills 0, Route to Pharmacy Electronically, [facility] STORE 12707, 165, cm, 03/11/21 9:11:00 EDT, Height Start Date: 03/14/21 Status: OrderedVentolin 90 mcg Inhaler 2, puffs, [...] Refills, Maintenance, 11/12/20 16:32:00 EDT, [facility], 165, cm, 10/27/20 10:30:00 EDT, Height Start Date: 11/12/20 Status: Ordered Problem List Condition Effective Dates Status Health Status Informant Asthma(Confirmed) Active Atrial fibrillation(Confirmed) Active Chronic anxiety(Confirmed) Active GERD (gastroesophageal reflux Active disease)(Confirmed) HTN (hypertension)(Confirmed) Active Insomnia(Confirmed) Active 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), 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, 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, ER/PA positive, 2003(Confirmed) COPD, moderate(Confirmed) Active Palpitations(Confirmed) Active Paroxysmal atrial Active fibrillation(Confirmed) Peripheral edema(Confirmed) Active Peripheral neuropathy(Confirmed) Active 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(Confirmed) Vital Signs Most recent to oldest [Reference Range]: 1 Height 165.00 cm (03/11/21 9:11 AM) Weight 111.8 kg (03/11/21 9:11 AM) Oxygen Saturation [94-100 %] 96 % (03/11/21 9:11 AM) Pulse Rate [55-90 bpm] 70 bpm (03/11/21 9:11 AM) Body Mass Index [18.5-24.99] 41.07 *>HHI* (03/11/21 9:11 AM) Blood Pressure [90-138/55-84 mm Hg] 130/80 mm Hg (03/11/21 9:11 AM) Temperature [96.8-100.4 DegF] 98.6 DegF (03/11/21 9:11 AM) Mode of Delivery (Oxygen) Room air (03/11/21 9:11 AM) Blood pressure sites Arm, left (03/11/21 9:11 AM) Temperature Route Oral (03/11/21 9:11 AM) Weight Obtained Via Standing scale (03/11/21 9:11 AM) Social History Social History Type Response Smoking Status Never smoker entered on: 06/15/15 Sex
--- OUTSIDE RECORDS SUMMARY | 2022-05-13 11:53 | XMS_ITS | Continuity of Care Document ---
:1935 Author Organization [facility] Adult Address [address] [place] [address]- Care Team Providers Name Role Phone Escobar CHASE, Landry Puentes Primary Care Physician [place] [facility] [place] 09/20/21 - 10/20/21 [facility] Adult [address] [place] [address]- Allergies, Adverse Reactions, Alerts Substance Reaction Severity [...] 23-valent vaccine3 08/06/08 Recorded 1Location History: Dr. SerranoQtcdhis5Fziwezod History: Dr. SerranoSadldlv5Zagimxty History: Dr. Serrano Medications albuterol-ipratropium 3 mg-0.5 mg/3 ml inhalation solution 3 mL, Neb, 4 times a day, PRN Wheezing/Shortness of Breath, DX:R06.2, # 60 each, 5 Refills, Maintenance, 11/14/19 11:56:00 EDT, Solution, [facility]/pharmacy #[id number], 3 mL Neb 4 times [...] 48 mL, 3 Refills, [facility] STORE 29287, 90, USE 2SPRAYS IN EACH NOSTRIL DAILY, [...] 02/03/22 8:00:00 EDT, 01/27/21 6:40:00 EDT, [facility]/pharmacy #[id number], Partial fill upon patient request [...] 1 Refills, Maintenance, 09/29/21 11:56:00 EST, [facility]/pharmacy #[id number], Partial fill upon patient request [...] tablet, 5 Refills, Maintenance, 11/12/20 16:32:00 EDT, [facility] STORE 15326, 165, cm, 10/27/20 10:30:00 EDT, Height Start [...]
--- OUTSIDE RECORDS SUMMARY | 2022-05-13 11:53 | XMS_ITS | Continuity of Care Document ---
:1935 Author Organization [facility] Adult Address [address] [place] [address]- Care Team Providers Name Role Phone Escobar CHASE, Landry Puentes Primary Care Physician Encounter [facility] [place] Date(s): 02/24/22 - 03/26/22 [facility] Adult [address] [place] [address]- Allergies, Adverse Reactions, Alerts Substance Reaction Severity Status lisinopril Active penicillins Active sulfa drugs hives Active Bactrim Active Adhesive Bandage Active Immunizations Given and Recorded Vaccine Date Status Refusal Reason SARS-CoV-2 mRNA (rxfuvlb-ezlg-uifxc) vax 12/01/21 Recorde d SARS-CoV-2 (COVID-19) mRNA [...] 23-valent vaccine3 08/06/08 Recorded 1Location History: Dr. SerranoKfokuke3Fnentltm History: Dr. SerranoFmjzuin2Sdvkghyw History: Dr. Serrano Medications albuterol-ipratropium 3 mg-0.5 [...] DAILY, # 48 mL, 3 Refills, [facility] STORE 75897, 90, USE 2SPRAYS IN EACH NOSTRIL DAILY, [...] in PM, # 30 tablet, 5 Refills, [facility] STORE 21323, 165, cm, 02/24/22 13:03:00EDT, Height Start Date: [...] Care Team PersonnelName: Landry Cody MD Address: [address] [place] [id number]
--- OUTSIDE RECORDS SUMMARY | 2022-05-13 11:53 | XMS_ITS | Continuity of Care Document ---
:1935 Author Organization [facility] Address [address] [place] [address]- Care Team Providers Name Role Phone Escobar CHASE, Landry Puentes Primary Care Physician [place] [facility] [place]13[place]22 [place] 03/23/22 [facility] [address] [place] [address]- Attending Physician: Talib George MD Admitting Physician: Talib George MD Allergies, Adverse Reactions, Alerts Substance Reaction Severity Status lisinopril Active penicillins Active sulfa drugs hives Active Bactrim Active Adhesive Bandage Active Immunizations Given and Recorded Vaccine Date Status Refusal Reason SARS-CoV-2 mRNA ([id number]-iakk-fbawm) vax 12/01/21 Recorde d SARS-CoV-2 (COVID-19) mRNA [...] 23-valent vaccine3 08/06/08 Recorded 1Location History: Dr. SerranoXgzbzoc3Zysmzdro History: Dr. SerranoJyapwmv5Zlxyuodj History: Dr. Serrano Medications albuterol-ipratropium 3 mg-0.5 [...] # 48 mL, 3 Refills, [facility], 90, USE 2SPRAYS IN EACH NOSTRIL DAILY, [...] capsule, 2 Refills, Maintenance, 01/30/22 14:25:00 EDT, [facility]/pharmacy #[id number], Partial fill upon patient request [...] # 30 tablet, 5 Refills, [facility], 165, cm, 02/24/22 13:03:00EDT, Height Start Date: 03/08/22 Status: Ordered Problem List Condition Effective Dates Status Health Status Informant Asthma(Confirmed) Active Atrial fibrillation(Confirmed) Active Chronic anxiety(Confirmed) Active GERD (gastroesophageal reflux Active disease)(Confirmed) HTN (hypertension)(Confirmed) Active Insomnia(Confirmed) Active 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), 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
--- OUTSIDE RECORDS SUMMARY | 2022-05-13 11:53 | XMS_ITS | Continuity of Care Document ---
:1935 Author Organization [facility] Address [address] [place] [address]- Care Team Providers Name Role Phone Landry Cody MD Primary Care Physician Encounter [facility] [place] Date(s): 07/14/19 - 07/14/[address] [address]- [facility] Attending Physician: Landry Cody MD [...] 23-valent vaccine3 08/06/08 Recorded 1Location History: Dr. SerranoXwlaykh5Ezszalci History: Dr. SerranoZzxyrde9Qyqcryco History: Dr. Serrano Medications B-Complex SR oral [...] Gm, 0 Refills, Maintenance, 06/30/19 11:06:50 EST, [place] Start Date: 06/30/19 Status: Orderedgabapentin 100 mg oral capsule 100 mg, 1, capsule, By Mouth, 3 times a day, # 90 capsule, Refills 3, Tot. Refills 3, Maintenance, 07/01/19 3:29:00 EST, Route to Pharmacy Electronically, [id number], [facility]/pharmacy #[id number], 165, cm, 06/30/19 11:00:47 EST, Height Start Date: 07/01/19 Status: OrderedIncruse Ellipta = 62.5 mcg, Inhalation, [...]
--- OUTSIDE RECORDS SUMMARY | 2022-05-13 11:53 | XMS_ITS | Continuity of Care Document ---
:1935 Author Organization [facility] Adult Address [address] [place] [address]- Care Team Providers Name Role Phone Landry Cody MD Primary Care Physician Encounter [facility] [place] Date(s): 01/26/21 - 04/01/21 [facility] [address] [place] [address]- Attending Physician: Landry Cody MD Allergies, Adverse [...] 23-valent vaccine3 08/06/08 Recorded 1Location History: Dr. SerranoOhycgtz0Bvetdsug History: Dr. SerranoVpiujnd0Edcopwrq History: Dr. Serrano Medications albuterol-ipratropium 3 mg-0.5 [...] tablet, 0 Refills, Maintenance, 12/22/20 13:11:00 EDT, [facility]/pharmacy #[id number], 165, cm, 10/27/20 10:30:00 EDT, Height [...] 11 Refills, Maintenance, 11/27/19 16:40:00 EDT, Nasal [place], [facility]/pharmacy #0373, 2 sprays Nares, Both Daily, 165, cm, 08/20/19 11:09:00 EST, Height Start Date: 11/27/19 Status: Orderedgabapentin 300 mg oral capsule 300 mg, 1, capsule, By Mouth, 3 times a day, # 270 capsule, Refills 3, Tot. Refills 3, Maintenance, 01/27/21 6:43:00 EDT, Route to Pharmacy Electronically, [facility]/pharmacy #[id number], Partial fill upon patientrequest if the [...] Acute 02/03/22 8:00:00 EDT, 01/27/21 6:40:00 EDT, [facility]/pharmacy #[id number], Partial fill upon patient request if the prescription is for a schedule II opioid drug., 165, cm... Start Date: 01/27/21 Stop Date: 02/03/22 Status: OrderedMyrbetriq 25 mg oral tablet, extended release 1 tablet = 25 mg, By Mouth, Daily at bedtime, # 30 tablet, 5 Refills, Maintenance, 03/11/21 9:40:00 EDT, [facility]/pharmacy #[id number], Partial fill upon patient request if [...] tablet, Refills 0, Route to Pharmacy Electronically, 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
--- OUTSIDE RECORDS SUMMARY | 2022-05-13 11:53 | XMS_ITS | Continuity of Care Document ---
:1935 Author Organization [facility] Adult Address [address] [place] [address]- Care Team Providers Name Role Phone Landry Cody MD Primary Care Physician Encounter [facility] [place] Date(s): 07/11/21 - 07/18/21 [facility] Adult [address] [place] [address]- Attending Physician: Landry Cody MD Allergies, Adverse [...] 23-valent vaccine3 08/06/08 Recorded 1Location History: Dr. SerranoSvswokr3Yrhczdms History: Dr. SerranoBlgvxqh9Ltnjjfrv History: Dr. Serrano Medications albuterol-ipratropium 3 mg-0.5 [...] # 48 mL, 3 Refills, [facility], 90, USE 2SPRAYS IN EACH NOSTRIL DAILY, [...] 3 Refills, Maintenance, 07/11/21 15:36:00 EST, [facility]/pharmacy #0373, Partial fill upon patient request if [...] 0, Route to Pharmacy Electronically, [facility], 165, cm, 05/06/21 15:57:00 EDT, Height Start [...] Refills, Maintenance, 11/12/20 16:32:00 EDT, [facility], 165, cm, 10/27/20 10:30:00 EDT, Height Start [...] 1 2 Height 165.00 cm 165.00 cm (07/11/21 3:26 PM) (07/11/21 3:11 PM) Weight 121 kg (07/11/21 3:11 PM) Oxygen Saturation [94-100 %] 98 % (07/11/21 3:11 PM) Pulse Rate [55-90 bpm] 67 bpm (07/11/21 3:11 PM) Body Mass Index [18.5-24.99] 44.44 *>HHI* (07/11/21 3:11 PM) Blood Pressure [90-138/55-84 mm Hg] 138/46 mm Hg 141/ 43 mm Hg (07/11/21 3:26 PM) *H* (07/11/21 3:11 PM) Temperature [96.8-100.4 DegF] 98.3 DegF (07/11/21 3:11 PM) Blood pressure sites Arm, left Arm, left (07/11/21 3:26 PM) (07/11/21 3:11 PM) Weight Obtained Via Standing scale (07/11/21 3:11 PM) Social History Social History Type Response Smoking Status Never smoker entered on: 06/15/15 Sex
--- OUTSIDE RECORDS SUMMARY | 2022-05-13 11:53 | XMS_ITS | Continuity of Care Document ---
:1935 Author Organization [facility] Adult Address [address] [place] [address]- Care Team Providers Name Role Phone Landry Cody MD [id number] 10[facility]06[facility] [address] [place] [address]- Attending Physician: Landry Cody MD Allergies, Adverse [...] 23-valent vaccine3 08/06/08 Recorded 1Location History: Dr. SerranoZveugmp1Grlhpnzr History: Dr. SerranoZuzqvqf0Vgsmipuo History: Dr. Serrano Medications albuterol-ipratropium 3 mg-0.5 [...] DAILY, # 48 mL, 3 Refills, [facility] STORE 41549, 90, USE 2SPRAYS IN EACH NOSTRIL DAILY, [...] 02/03/22 8:00:00 EDT, 01/27/21 6:40:00 EDT, [facility]/pharmacy #[id number], Partial fill upon patient request if the prescription is for a schedule II opioid drug., 165, cm... Start Date: 01/27/21 Stop Date: 02/03/22 Status: OrderedMyrbetriq 50 mg oral tablet, extended release 1 tablet = 50 mg, By Mouth, Daily, Replaces 25 mg dose, # 90 tablet, 3 Refills, Maintenance, 07/11/21 15:36:00 EST, [facility]/pharmacy #0373, Partial fill upon patient request [...] 1 Refills, Maintenance, 09/29/21 11:56:00 EST, [facility]/pharmacy #[id number], Partial fill upon patient request [...] Refills, Maintenance, 11/12/20 16:32:00 EDT, [facility], 165, cm, 10/27/20 10:30:00 EDT, Height Start [...] oldest [Reference Range]: 1 Height 165.00 cm (09/29/21 11:29 AM) Weight 118.8 kg (09/29/21 11:29 AM) Oxygen Saturation [94-100 %] 97 % (09/29/21 11:29 AM) Pulse Rate [55-90 bpm] 71 bpm (09/29/21 11:29 AM) Body Mass Index [18.5-24.99] 43.64 *>HHI* (09/29/21 11:29 AM) Blood Pressure [90-138/55-84 mm Hg] 154/41 mm Hg *H* (09/29/21 11:29 AM) Temperature [96.8-100.4 DegF] 98.4 DegF (09/29/21 11:29 AM) Blood pressure sites Arm, right (09/29/21 11:29 AM) Temperature Route Oral (09/29/21 11:29 AM) Weight Obtained Via Standing scale (09/29/21 11:29 AM) Social History Social History Type Response Smoking Status Never smoker entered on: 06/15/15 Sex
--- OUTSIDE RECORDS SUMMARY | 2022-05-13 11:53 | XMS_ITS | Continuity of Care Document ---
:1935 Author Organization [facility] [place] Adult Address [address] [place] [address]- Care Team Providers Name Role Phone Landry Cody MD Primary Care Physician [place] [facility] [place] 10[place]24[place]21 [facility] [place] [address] [place] [address]- Attending Physician: Landry Cody MD Allergies, Adverse [...] 23-valent vaccine3 08/06/08 Recorded 1Location History: Dr. SerranoXdbigff6Ecqlwiyz History: Dr. SerranoEsrlhde8Spdpksmg History: Dr. Serrano Medications albuterol-ipratropium 3 mg-0.5 mg/3 ml inhalation solution 3 mL, Neb, 4 times a day, PRN Wheezing/Shortness of Breath, DX:R06.2, # 60 each, 5 Refills, Maintenance, 11/14/19 11:56:00 EDT, Solution, [facility]/pharmacy #0373, 3 mL Neb 4 times a [...] DAILY, # 48 mL, 3 Refills, [facility] STORE 40785, 90, USE 2SPRAYS IN EACH NOSTRIL DAILY, [...] Refills, Maintenance, 11/12/20 16:32:00 EDT, [facility], 165, cm, 10/27/20 10:30:00 EDT, Height Start [...] oldest [Reference Range]: 1 Height 165.00 cm (10/17/21 1:57 PM) Weight 118.7 kg (10/17/21 1:57 PM) Oxygen Saturation [94-100 %] 97 % (10/17/21 1:57 PM) Pulse Rate [55-90 bpm] 70 bpm (10/17/21 1:57 PM) Body Mass Index [18.5-24.99] 43.6 *>HHI* (10/17/21 1:57 PM) Blood Pressure [90-138/55-84 mm Hg] 130/52 mm Hg (10/17/21 1:57 PM) Temperature [96.8-100.4 DegF] 98.3 DegF (10/17/21 1:57 PM) Mode of Delivery (Oxygen) Room air (10/17/21 1:57 PM) Blood pressure sites Arm, left (10/17/21 1:57 PM) Temperature Route Oral (10/17/21 1:57 PM) Weight Obtained Via Standing scale (10/17/21 1:57 PM) Social History Social History Type Response Smoking Status Never smoker entered on: 06/15/15 Sex
--- OUTSIDE RECORDS SUMMARY | 2022-05-13 11:53 | XMS_ITS | Continuity of Care Document ---
:1935 Author Organization [facility] Adult Address [address] [place] [address]- Care Team Providers Name Role Phone Escobar CHASE, Landry Puentes Primary Care Physician Encounter [facility] Date(s): 02/03/22 - 03/05/22 [facility] [address] [place] [address]- Allergies, Adverse Reactions, Alerts Substance Reaction Severity Status lisinopril Active penicillins Active sulfa drugs hives Active Bactrim Active Adhesive Bandage Active Immunizations Given and Recorded Vaccine Date Status Refusal Reason SARS-CoV-2 mRNA (hapxoxi-rayt-sztfl) vax 12/01/21 Recorde d SARS-CoV-2 (COVID-19) mRNA [...] 23-valent vaccine3 08/06/08 Recorded 1Location History: Dr. SerranoTxakwsp9Lglqiebb History: Dr. SerranoYzbwdds1Foyumvlo History: Dr. Serrano Medications albuterol-ipratropium 3 mg-0.5 [...] NOSTRIL DAILY, # 48 mL, 3 Refills, [facility] STORE 41195, 90, USE 2SPRAYS IN EACH NOSTRIL DAILY, [...] tablet, 5 Refills, Maintenance, 12/07/21 9:56:00 EDT, 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
--- OUTSIDE RECORDS SUMMARY | 2022-05-13 11:53 | XMS_ITS | Continuity of Care Document ---
:1935 Author Organization [facility] Address [address] [place] [address]- Care Team Providers Name Role Phone Landry Cody MD Primary Care Physician Encounter [facility] [place] [facility] [id number] Date(s): 02/10/22 - 02/17/22 [facility] [address] [place] [address]- Attending Physician: Talib George MD Admitting Physician: Talib George MD Referring Physician: Landry Cody MD Allergies, Adverse Reactions, Alerts Substance Reaction Severity Status lisinopril Active penicillins Active sulfa drugs hives Active Bactrim Active Adhesive Bandage Active Immunizations Given and Recorded Vaccine Date Status Refusal Reason SARS-CoV-2 mRNA (qrxwkxw-kxsu-icizq) vax 12/01/21 Recorde d SARS-CoV-2 (COVID-19) mRNA [...] 23-valent vaccine3 08/06/08 Recorded 1Location History: Dr. SerranoDnequcw0Tveqfzgl History: Dr. SerranoEwzluka9Bqugxipy History: Dr. Serrano Medications albuterol-ipratropium 3 mg-0.5 [...] # 48 mL, 3 Refills, [facility], 90, USE 2SPRAYS IN EACH NOSTRIL DAILY, [...] oldest [Reference Range]: 1 Height 165.00 cm (02/10/22 3:13 PM) Weight 111.36 kg (02/10/22 3:13 PM) Pulse Rate [55-90 bpm] 76 bpm (02/10/22 3:13 PM) Body Mass Index [18.5-24.99] 40.9 *>HHI* (02/10/22 3:13 PM) Blood Pressure [90-138/55-84 mm Hg] 140/90 mm Hg *H* (02/10/22 3:13 PM) Blood pressure sites Arm, left (02/10/22 3:13 PM) Dry Weight Obtained Via Patient/family stated (02/10/22 3:13 PM) Social History Social History Type Response Smoking Status Never smoker entered on: 06/15/15 Sex
--- OUTSIDE RECORDS SUMMARY | 2022-05-13 11:53 | XMS_ITS | Continuity of Care Document ---
:1935 Author Organization [facility] Address [address] [place] [address]- Care Team Providers Name Role Phone Escobar CHASE, Landry Puentes Primary Care Physician Encounter [facility] Date(s): 12/28/21 - 01/27/22 [facility] [address] [place] [address]- Allergies, Adverse Reactions, Alerts Substance Reaction Severity Status lisinopril Active penicillins Active sulfa drugs hives Active Bactrim Active Adhesive Bandage Active Immunizations Given and Recorded Vaccine Date Status Refusal Reason SARS-CoV-2 mRNA (kmgszvt-wusq-nuvwg) vax 12/01/21 Recorde d SARS-CoV-2 (COVID-19) mRNA [...] 23-valent vaccine3 08/06/08 Recorded 1Location History: Dr. SerranoNnqmnya6Ndlvidnr History: Dr. SerranoBmshwlr2Tpiozsye History: Dr. Serrano Medications albuterol-ipratropium 3 mg-0.5 [...] # 48 mL, 3 Refills, [facility], 90, USE 2SPRAYS IN EACH NOSTRIL DAILY, [...] Venous inufficiency, ... Start Date: 01/27/22 Status: OrderedLORazepam 1 mg oral tablet 1 [...] capsule, 5 Refills, Maintenance, 12/23/21 16:14:00 EDT, [id number], Partial fill upon patient [...] N0, ER/[place] positive, 2003(Confirmed) COPD, moderate(Confirmed) Active Obese class II(Confirmed) Active Palpitations(Confirmed) Active Paroxysmal atrial Active fibrillation(Confirmed) Peripheral edema(Confirmed) Active Peripheral neuropathy(Confirmed) Active 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
--- OUTSIDE RECORDS SUMMARY | 2022-05-13 11:53 | XMS_ITS | Continuity of Care Document ---
:1935 Author Organization [facility] Adult Address [address] [place] [address]- Care Team Providers Name Role Phone Landry Cody MD Primary Care Physician [place] [facility] [place](s): 06/30/19 - 07/07/19 [facility] Adult [address] [place] [address]- [facility] Attending Physician: Landry Cody MD Allergies, Adverse Reactions, Alerts Substance Reaction Severity Status lisinopril Active penicillins Active sulfa drugs hives Active Bactrim Active Adhesive Bandage Active Immunizations Given and Recorded Vaccine Date Status Refusal Reason Influenza Virus Vaccine (oldterm) 06/01/19 Recorded pneumococcal 13-valent vaccine1 08/06/16 Recorded tetanus/diphtheria/pertussis, acel(Tdap) 01/17/14 Given Zostavax (oldterm)2 08/06/12 Recorded pneumococcal 23-valent vaccine3 08/06/08 Recorded 1Location History: Dr. SerranoRusyfms5Lhkaluze History: Dr. SerranoCdiloup3Ppwwbbgn History: Dr. Serrano Medications B-Complex SR oral [...] Gm, 0 Refills, Maintenance, 06/30/19 11:06:50 EST, [place] Start Date: 06/30/19 Status: Orderedgabapentin 100 mg oral capsule 100 mg, 1, capsule, By Mouth, 3 times a day, # 90 capsule, Refills 3, Tot. Refills 3, Maintenance, 07/01/19 3:29:00 EST, Route to Pharmacy Electronically, [id number], [facility]/pharmacy #[id number], 165, cm, 06/30/19 11:00:47 EST, Height [...] oldest [Reference Range]: 1 Height 165.00 cm (06/30/19 11:00 AM) Weight 104.8 kg (06/30/19 11:00 AM) Oxygen Saturation [94-100 %] 96 % (06/30/19 11:00 AM) Pulse Rate [55-90 bpm] 64 bpm (06/30/19 11:00 AM) Body Mass Index [18.5-24.99] 38.49 *>HHI* (06/30/19 11:00 AM) Blood Pressure [90-138/55-84 mm Hg] 120/78 mm Hg (06/30/19 11:00 AM) Mode of Delivery (Oxygen) Room air (06/30/19 11:00 AM) Blood pressure sites Arm, right (06/30/19 11:00 AM) Weight Obtained Via Standing scale (06/30/19 11:00 AM) Social History Social History Type Response Smoking Status Never smoker entered on: 06/15/15 Sex
--- OUTSIDE RECORDS SUMMARY | 2022-05-13 11:53 | XMS_ITS | Continuity of Care Document ---
:1935 Author Organization [facility] Adult Address [address] [place] [address]- Care Team Providers Name Role Phone Escobar CHASE, Landry Puentes Primary Care Physician Encounter [facility] [place] Date(s): 01/13/21 - 02/12/21 [facility] Adult [address] [place] [address]- Allergies, Adverse Reactions, Alerts Substance Reaction Severity [...] 23-valent vaccine3 08/06/08 Recorded 1Location History: Dr. SerranoRjxeopd1Qiopleou History: Dr. SerranoVinembo9Llaxrxcp History: Dr. Serrano Medications albuterol-ipratropium 3 mg-0.5 [...] tablet, 0 Refills, Maintenance, 12/22/20 13:11:00 EDT, [facility]/pharmacy #[id number], 165, cm, 10/27/20 10:30:00 EDT, Height [...] 11 Refills, Maintenance, 11/27/19 16:40:00 EDT, Nasal [place], [facility], 2 sprays Nares, Both Daily, 165, cm, 08/20/19 11:09:00 EST, Height Start Date: 11/27/19 Status: Orderedgabapentin 100 mg oral capsule 100 mg, 1, capsule, By Mouth, 3 times a day, # 90 capsule, Refills 3, Tot. Refills 3, Maintenance, 04/21/20 13:09:00 EDT, Route to Pharmacy Electronically, [facility]/pharmacy #[id number], 165, cm, 04/01/20 13:58:00 EDT, Height Start Date: 04/21/20 Status: Orderedgabapentin 300 mg oral capsule 300 mg, 1, capsule, By Mouth, 3 times a day, # 270 capsule, Refills 3, Tot. Refills 3, Maintenance, 01/27/21 6:43:00 EDT, Route to Pharmacy Electronically, [facility]/pharmacy #[id number], Partial fill upon patientrequest if [...] Acute 02/03/22 8:00:00 EDT, 01/27/21 6:40:00 EDT, [facility]/pharmacy #[id number], Partial fill upon patient request [...] 12/16/20 16:15:00 EDT, Route to Pharmacy Electronically, [facility] STORE [id number], 165, cm, 10/27/20 10:30:00 EDT, Height Start [...] Refills, Maintenance, 11/12/20 16:32:00 EDT, [facility], 165, cm, 10/27/20 10:30:00 EDT, Height Start [...]
--- OUTSIDE RECORDS SUMMARY | 2022-05-13 11:53 | XMS_ITS | Continuity of Care Document ---
:1935 Author Organization [facility] Adult Address [address] [place] [address]- Care Team Providers Name Role Phone Escobar CHASE, Landry Puentes Primary Care Physician [place] [facility] [place](s[place] 12/22/20 - 01/21/21 [facility] Adult [address] [place] [address]- Allergies, Adverse Reactions, Alerts Substance Reaction Severity Status lisinopril Active penicillins Active sulfa drugs hives Active Bactrim Active Adhesive Bandage Active Immunizations Given and Recorded Vaccine Date Status Refusal Reason Influenza Virus Vaccine (oldterm) 06/01/19 Recorded pneumococcal 13-valent vaccine1 08/06/16 Recorded tetanus/diphtheria/pertussis, acel(Tdap) 01/17/14 Given Zostavax (oldterm)2 08/06/12 Recorded pneumococcal 23-valent vaccine3 08/06/08 Recorded 1Location History: Dr. SerranoBkerjpu8Qrcllahb History: Dr. SerranoKuowtvo5Ljawpkfe History: Dr. Serrano Medications albuterol-ipratropium 3 mg-0.5 [...] tablet, 0 Refills, Maintenance, 12/22/20 13:11:00 EDT, [facility]/pharmacy #[id number], 165, cm, 10/27/20 10:30:00 [...] 11 Refills, Maintenance, 11/27/19 16:40:00 EDT, Nasal [place], [facility]/pharmacy #[id number], 2 sprays Nares, Both Daily, 165, cm, 08/20/19 11:09:00 EST, Height Start Date: 11/27/19 Status: Orderedgabapentin 100 mg oral capsule 100 mg, 1, capsule, By Mouth, 3 times a day, # 90 capsule, Refills 3, Tot. Refills 3, Maintenance, 04/21/20 13:09:00 EDT, Route to Pharmacy Electronically, [facility]/pharmacy #[id number], 165, cm, 04/01/20 13:58:00 EDT, Height Start Date: 04/21/20 Status: OrderedIncruse Ellipta = 62.5 mcg, Inhalation, Every 24 hours, 0 Refills, Maintenance, 07/10/17 12:12:03 Start Date: 12/19/17 Status: Orderedpantoprazole 40 mg oral delayed release [...] EDT, Route to Pharmacy Electronically, [facility], 165, cm, 10/27/20 10:30:00 EDT, Height Start [...] Refills, Maintenance, 11/12/20 16:32:00 EDT, [facility], 165, cm, 10/27/20 10:30:00 EDT, Height Start [...]
--- OUTSIDE RECORDS SUMMARY | 2022-05-13 11:53 | XMS_ITS | Continuity of Care Document ---
:1935 Author Organization [facility] Adult Address [address] [place] [address]- Care Team Providers Name Role Phone Escobar CHASE, Landry Puentes Primary Care Physician Encounter [facility] [place] Date(s): 05/27/21 - 06/26/21 [facility] Adult [address] [place] [address]- Allergies, Adverse Reactions, Alerts Substance Reaction Severity [...] 23-valent vaccine3 08/06/08 Recorded 1Location History: Dr. SerranoMjtsnkr9Htbcalue History: Dr. SerranoZdlnwtj5Yiduukwo History: Dr. Serrano Medications albuterol-ipratropium 3 mg-0.5 [...] NOSTRIL DAILY, # 48 mL, 3 Refills, [facility] STORE 00947, 90, USE 2SPRAYS IN EACH NOSTRIL DAILY, [...] 0, Route to Pharmacy Electronically, [facility], 165, cm, 05/06/21 15:57:00 EDT, Height Start [...] Refills, Maintenance, 11/12/20 16:32:00 EDT, [facility], 165, cm, 10/27/20 10:30:00 EDT, Height Start Date: 11/12/20 Status: Ordered Problem List Condition Effective Dates Status Health Status Informant Asthma(Confirmed) Active Atrial fibrillation(Confirmed) Active Chronic anxiety(Confirmed) Active GERD (gastroesophageal reflux Active disease)(Confirmed) HTN (hypertension)(Confirmed) Active Insomnia(Confirmed) Active 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
--- OUTSIDE RECORDS SUMMARY | 2022-05-13 11:53 | XMS_ITS | Continuity of Care Document ---
:1935 Author Organization [facility] Address [address] [place] [address]- Care Team Providers Name Role Phone Landry Cody MD Primary Care Physician Encounter [facility] [place] Date(s): 02/24/22 - 03/26/22 [facility] [address] [place] [address]- Attending Physician: Kim Marquez Admitting Physician: Admtr, Kim Referring Physician: Admtr, Ar8 Allergies, Adverse Reactions, Alerts Substance Reaction Severity Status lisinopril Active penicillins Active sulfa drugs hives Active Bactrim Active Adhesive Bandage Active Immunizations Given and Recorded Vaccine Date Status Refusal Reason SARS-CoV-2 mRNA (xqexxhg-hukt-tlvpz) vax 12/01/21 Recorde d SARS-CoV-2 (COVID-19) mRNA [...] 23-valent vaccine3 08/06/08 Recorded 1Location History: Dr. SerranoAzlbykc3Gvbghfnr History: Dr. SerranoEpqigfu8Sbyojjpn History: Dr. 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
--- OUTSIDE RECORDS SUMMARY | 2022-05-13 11:53 | XMS_ITS | Continuity of Care Document ---
:1935 Author Organization [facility] Adult Address [address] [place] [address]- Care Team Providers Name Role Phone Escobar CHASE, Landry Puentes Primary Care Physician Encounter [facility] [place] Date(s): 10/28/21 - 11/27/21 [facility] Adult [address] [place] [address]- Allergies, Adverse Reactions, Alerts Substance Reaction Severity [...] 23-valent vaccine3 08/06/08 Recorded 1Location History: Dr. SerranoKbadmjh7Ngvqcrga History: Dr. SerranoPljmgog1Glfcgpuu History: Dr. Serrano Medications albuterol-ipratropium 3 mg-0.5 mg/3 ml inhalation solution 3 mL, Neb, 4 times a day, PRN Wheezing/Shortness of Breath, DX:R06.2, # 60 each, 5 Refills, Maintenance, 11/14/19 11:56:00 EDT, Solution, [facility]/pharmacy #0373, 3 mL Neb 4 times [...] # 48 mL, 3 Refills, [facility] STORE 17759, 90, USE 2SPRAYS IN EACH NOSTRIL DAILY, [...] 8:00:00 EDT, 01/27/21 6:40:00 EDT, [facility]/pharmacy #0373, Partial fill upon patient request if the prescription is for a schedule II opioid drug., 165, cm... Start Date: 01/27/21 Stop Date: 02/03/22 Status: OrderedMyrbetriq 50 mg oral tablet, extended release 1 tablet = 50 mg, By Mouth, Daily, Replaces 25 mg dose, # 90 tablet, 3 Refills, Maintenance, 07/11/21 15:36:00 EST, [facility]/pharmacy #0373, Partial fill upon patient request [...] Refills, Maintenance, 09/29/21 11:56:00 EST, [facility]/pharmacy #0373, Partial fill upon patient request [...] Refills, Maintenance, 11/12/20 16:32:00 EDT, [facility], 165, cm, 10/27/20 10:30:00 EDT, Height Start [...]
--- OUTSIDE RECORDS SUMMARY | 2022-05-13 11:53 | XMS_ITS | Continuity of Care Document ---
:1935 Author Organization [facility] Adult Address [address] [place] [address]- Care Team Providers Name Role Phone Landry Cody MD Primary Care Physician [place] [facility] [place]21 [facility] Adult [address] [place] [address]- Attending Physician: Landry Cody MD Allergies, Adverse Reactions, Alerts Substance Reaction Severity Status lisinopril Active penicillins Active sulfa drugs hives Active Adhesive Bandage Active Bactrim Active Immunizations Given and Recorded Vaccine Date Status Refusal Reason SARS-CoV-2 mRNA (jdvnxrl-aeui-keuso) vax 12/01/21 Recorde d SARS-CoV-2 (COVID-19) mRNA [...] 23-valent vaccine3 08/06/08 Recorded 1Location History: Dr. SerranoXtbnose1Pomgcaih History: Dr. SerranoTujlqag9Rjvjphkq History: Dr. Serrano Medications albuterol-ipratropium 3 mg-0.5 [...] # 48 mL, 3 Refills, [facility], 90, USE 2SPRAYS IN EACH NOSTRIL DAILY, 165, cm, 05/06/21 15:57:00 EDT, Height Start Date: 06/07/21 Status: OrderedLORazepam 1 mg oral tablet 1 tablet = 1 mg, By Mouth, Daily, PRN as needed for anxiety, # 20 tablet, 0 Refills, Acute 02/03/22 8:00:00 EDT, 01/27/21 6:40:00 EDT, [facility]/pharmacy #[id number], Partial fill upon patient [...] tablet, 3 Refills, Maintenance, 07/11/21 15:36:00 EST, [facility]/pharmacy #0373, Partial fill upon patient [...] tablet, 1 Refills, Maintenance, 09/29/21 11:56:00 EST, [facility]/pharmacy #0373, Partial fill upon patient request if the prescription is for a schedule II opioid drug., 165, cm, 09/29/21 11:29:00 EST, Height Start Date: 09/29/21 Status: Orderedtorsemide 10 mg oral tablet 1 tablet = 10 mg, By Mouth, Daily, Patient has tolerated in the past, # 30 tablet, 2 Refills, Maintenance, 12/23/21 16:16:00 EDT, Tablet, [facility]/pharmacy #0373, Partial fill upon patient [...] tablet, 5 Refills, Maintenance, 12/07/21 9:56:00 EDT, [facility]/pharmacy #0373, 165, cm, 10/17/21 13:57:00 EDT, [...] Vital Signs Most recent to oldest [Reference 1 2 3 Range]: Height 165.00 cm 165.00 cm 165.00 cm (12/23/21 3:49 PM) (12/23/21 3:48 PM) (12/23/21 3:43 P M) Weight 118.0 kg (12/23/21 3:43 PM) Oxygen Saturation [94-100 %] 95 % (12/23/21 3:43 PM) Pulse Rate [55-90 bpm] 76 bpm (12/23/21 3:43 PM) Body Mass Index [18.5-24.99] 43.34 *>HHI* (12/23/21 3:43 PM) Blood Pressure [90-138/55-84 mm 160/84 mm Hg 160/80 mm Hg 171/84 mm Hg Hg] *H* *H* *H* (12/23/21 3:49 PM) (12/23/21 3:48 PM) (12/23/21 3:43 P M) Mode of Delivery (Oxygen) Room air (12/23/21 3:43 PM) Blood pressure sites Arm, left Arm, left Arm, left (12/23/21 3:49 PM) (12/23/21 3:48 PM) (12/23/21 3:43 P M) Weight Obtained Via Standing scale (12/23/21 3:43 PM) Social History Social History Type Response Smoking Status Never smoker entered on: 06/15/15 Sex
--- OUTSIDE RECORDS SUMMARY | 2022-05-13 11:53 | XMS_ITS | Continuity of Care Document ---
:1935 Author Organization [facility] Address [address] [place] [address]- Care Team Providers Name Role Phone Landry Cody MD Primary Care Physician Encounter [facility] [place] Date(s): 02/24/22 - 03/03/22 [facility] [address] [place], [place] [address] Attending Physician: Talib George MD Admitting Physician: Talib George MD Referring Physician: Landry Cody MD Allergies, Adverse Reactions, Alerts Substance Reaction Severity Status lisinopril Active penicillins Active sulfa drugs hives Active Adhesive Bandage Active Bactrim Active Immunizations Given and Recorded Vaccine Date Status Refusal Reason SARS-CoV-2 mRNA ([id number]-gasd-mzzpd) vax 12/01/21 Recorde d SARS-CoV-2 (COVID-19) mRNA [...] 23-valent vaccine3 08/06/08 Recorded 1Location History: Dr. SerranoKukahpd8Jwnmwizx History: Dr. SerranoZmlbcpo6Ijgdfabl History: Dr. 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), 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, T1 N0, ER/[place] positive, 2003(Confirmed) COPD, moderate(Confirmed) Active Palpitations(Confirmed) Active Paroxysmal atrial Active fibrillation(Confirmed) Peripheral edema(Confirmed) Active Peripheral neuropathy(Confirmed) Active Severe obesity(Confirmed) Active 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
--- OUTSIDE RECORDS SUMMARY | 2022-05-13 11:53 | XMS_ITS | Continuity of Care Document ---
:1935 Author Organization [facility] Adult Address [address] [place] [address]- Care Team Providers Name Role Phone Landry Cody MD Primary Care Physician Encounter [facility] [place] Date(s): 09/23/20 - 09/30/20 [facility] [address] [place] [address]- Attending Physician: Landry Cody MD Allergies, Adverse Reactions, Alerts Substance Reaction Severity Status lisinopril Active penicillins Active Adhesive Bandage Active sulfa drugs hives Active Bactrim Active Immunizations Given and Recorded Vaccine Date Status Refusal Reason Influenza Virus Vaccine (oldterm) 06/01/19 Recorded pneumococcal 13-valent vaccine1 08/06/16 Recorded tetanus/diphtheria/pertussis, acel(Tdap) 01/17/14 Given Zostavax (oldterm)2 08/06/12 Recorded pneumococcal 23-valent vaccine3 08/06/08 Recorded 1Location History: Dr. SerranoFuerlfj7Svmywbha History: Dr. SerranoHlrerea3Tpfadrkc History: Dr. Serrano Medications albuterol-ipratropium 3 mg-0.5 [...] 11 Refills, Maintenance, 11/27/19 16:40:00 EDT, Nasal [place], [facility]/pharmacy #0373, 2 sprays Nares, Both Daily, 165, cm, 08/20/19 11:09:00 EST, Height Start Date: 11/27/19 Status: Orderedgabapentin 100 mg oral capsule 100 mg, 1, capsule, By Mouth, 3 times a day, # 90 capsule, Refills 3, Tot. Refills 3, Maintenance, 04/21/20 13:09:00 EDT, Route to Pharmacy Electronically, [facility]/pharmacy #[id number], 165, cm, 04/01/20 13:58:00 [...] 09/23/20 10:12:00 EST, Route to Pharmacy Electronically, [facility]/pharmacy #[id number], Partial fill upon patient request ifthe [...] tablet, 5 Refills, Maintenance, 05/12/20 13:06:00 EDT,Tablet, [facility]/pharmacy #0373, 165, cm, 04/01/20 13:58:00 [...] oldest [Reference Range]: 1 Height 165.00 cm (09/23/20 9:39 AM) Weight 113.5 kg (09/23/20 9:39 AM) Oxygen Saturation [94-100 %] 96 % (09/23/20 9:39 AM) Pulse Rate [55-90 bpm] 71 bpm (09/23/20 9:39 AM) Body Mass Index [18.5-24.99] 41.69 *>HHI* (09/23/20 9:39 AM) Blood Pressure [90-138/55-84 mm Hg] 128/80 mm Hg (09/23/20 9:39 AM) Temperature [96.8-100.4 DegF] 98.0 DegF (09/23/20 9:39 AM) Blood pressure sites Arm, left (09/23/20 9:39 AM) Temperature Route Oral (09/23/20 9:39 AM) Weight Obtained Via Standing scale (09/23/20 9:39 AM) Social History Social History Type Response Smoking Status Never smoker entered on: 06/15/15 Sex
--- OUTSIDE RECORDS SUMMARY | 2022-05-13 11:53 | XMS_ITS | Continuity of Care Document ---
:1935 Author Organization [facility] Address [address] [place] [address]- Care Team Providers Name Role Phone Landry Cody MD Primary Care [id number] Date[facility]/06/[facility] - 05/13/21 [facility] [address] [place] [address]- Attending Physician: Landry Cody MD Allergies, Adverse [...] 23-valent vaccine3 08/06/08 Recorded 1Location History: Dr. SerranoJkbtzxe4Unrpovew History: Dr. SerranoPdlgimd2Cfeuvaly History: Dr. Serrano Medications albuterol-ipratropium 3 mg-0.5 mg/3 ml inhalation solution 3 mL, Neb, 4 times a day, PRN Wheezing/Shortness of Breath, DX:R06.2, # 60 each, 5 Refills, Maintenance, 11/14/19 11:56:00 EDT, Solution, [facility]/pharmacy #0373, 3 mL Neb 4 times [...] 11 Refills, Maintenance, 11/27/19 16:40:00 EDT, Nasal [place], [facility], 2 sprays Nares, Both Daily, 165, cm, 08/20/19 11:09:00 EST, Height Start Date: 11/27/19 Status: Orderedgabapentin 300 mg oral capsule 300 mg, 1, capsule, By Mouth, 3 times a day, # 270 capsule, Refills 3, Tot. Refills 3, Maintenance, 01/27/21 6:43:00 EDT, Route to Pharmacy Electronically, [facility]/pharmacy #[id number], Partial fill upon patientrequest if the prescription is for a schedule II... Start Date: 01/27/21 Status: OrderedLORazepam 1 mg oral tablet 1 tablet = 1 mg, By Mouth, Daily, PRN as needed for anxiety, # 20 tablet, 0 Refills, Acute 02/03/22 8:00:00 EDT, 01/27/21 6:40:00 EDT, [facility]/pharmacy #0373, Partial fill upon patient request if the prescription is for a schedule II opioid drug., 165, cm... Start Date: 01/27/21 Stop Date: 02/03/22 Status: OrderedMyrbetriq 50 mg oral tablet, extended release 1 tablet = 50 mg, By Mouth, Daily, Replaces 25 mg dose, # 90 tablet, 3 Refills, Maintenance, 05/08/21 11:08:00 EDT, [facility]/pharmacy #0373, Partial fill upon patient request [...] tablet, Refills 0, Route to Pharmacy Electronically, [facility] STORE 82052, 165, cm, 03/11/21 9:11:00 EDT, Height Start [...] PM, # 30 tablet, 5 Refills, Maintenance, 04/23/21 16:32:00 EDT, [facility], 165, cm, 10/27/20 10:30:00 EDT, Height Start [...] oldest [Reference Range]: 1 Height 165.00 cm (05/06/21 3:57 PM) Weight 116 kg (05/06/21 3:57 PM) Oxygen Saturation [94-100 %] 93 % *L* (05/06/21 3:57 PM) Pulse Rate [55-90 bpm] 73 bpm (05/06/21 3:57 PM) Body Mass Index [18.5-24.99] 42.61 *>HHI* (05/06/21 3:57 PM) Blood Pressure [90-138/55-84 mm Hg] 136/72 mm Hg (05/06/21 3:57 PM) Temperature [96.8-100.4 DegF] 98.7 DegF (05/06/21 3:57 PM) Mode of Delivery (Oxygen) Room air (05/06/21 3:57 PM) Blood pressure sites Arm, left (05/06/21 3:57 PM) Temperature Route Oral (05/06/21 3:57 PM) Weight Obtained Via Standing scale (05/06/21 3:57 PM) Social History Social History Type Response Smoking Status Never smoker entered on: 06/15/15 Sex
--- OUTSIDE RECORDS SUMMARY | 2022-05-13 11:53 | XMS_ITS | Continuity of Care Document ---
:1935 Author Organization [facility] Address [address] [place] [address], 3rd Floor, [address] [place] [address]- Care Team Providers Name Role Phone Landry Cody MD Primary Care Physician Encounter [facility] Date(s): 03/21/22 - 04/20/22 [facility] [address] [place] [address], 3rd [facility], [address] [place] [address]- Attending Physician: Kim Marquez Admitting Physician: Admtr, Ar8 Referring Physician: Admtr, Ar8 Allergies, Adverse Reactions, Alerts Substance Reaction Severity Status lisinopril Active penicillins Active Bactrim Active Adhesive Bandage Active sulfa drugs hives Active Immunizations Given and Recorded Vaccine Date Status Refusal Reason SARS-CoV-2 mRNA (dqbiclr-xnva-zprig) vax 12/01/21 Recorde d SARS-CoV-2 (COVID-19) mRNA [...] 23-valent vaccine3 08/06/08 Recorded 1Location History: Dr. SerranoIderxmq8Bjazbcaq History: Dr. SerranoRmgzrcq4Bnfblkof History: Dr. Serrano Medications albuterol-ipratropium 3 mg-0.5 [...] # 48 mL, 3 Refills, [facility], 90, USE 2SPRAYS IN EACH NOSTRIL DAILY, [...] # 30 tablet, 5 Refills, [facility], 165, cm, 02/24/22 13:03:00EDT, Height Start Date: 03/08/22 Status: Ordered Problem List Condition Confirmation Course Effective Dates Status Health Stat us Informant Asthma Confirmed Active Atrial fibrillation Confirmed Active Chronic anxiety Confirmed Active GERD Confirmed Active (gastroesophageal reflux disease) HTN (hypertension) Confirmed Active Insomnia Confirmed Active Malignant Neoplasm Confirmed 03/07/04 Active of Breast (Female), left, T1 N0, ER/[place] positive, 2003 COPD, moderate Confirmed Active Palpitations Confirmed Active Paroxysmal atrial Confirmed Active fibrillation Peripheral edema Confirmed Active Peripheral Confirmed Active neuropathy Severe obesity Confirmed Active 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 Social History Social History Type Response Smoking Status Never smoker entered on: 06/15/15 Sex Patient Care team information PersonnelName: Escobar CHASE, Landry Puentes Address: Address: [address] [place] [id number]
--- OUTSIDE RECORDS SUMMARY | 2022-05-13 11:54 | XMS_ITS | Continuity of Care Document ---
:1935 Author Organization [facility] Address [address] [place] [address]- Care Team Providers Name Role Phone Landry Cody MD Primary Care Physician Encounter [facility] Date(s): 01/27/22 - 02/03/22 [facility] [address] [place], [place] [address] Attending Physician: Talib George MD Admitting Physician: Talib George MD Referring Physician: Landry Cody MD Allergies, Adverse Reactions, Alerts Substance Reaction Severity Status lisinopril Active penicillins Active sulfa drugs hives Active Bactrim Active Adhesive Bandage Active Immunizations Given and Recorded Vaccine Date Status Refusal Reason SARS-CoV-2 mRNA (uhpoxxm-gltq-bippd) vax 12/01/21 Recorde d SARS-CoV-2 (COVID-19) mRNA [...] 23-valent vaccine3 08/06/08 Recorded 1Location History: Dr. SerranoNdnyjaq6Eszylsmz History: Dr. SerranoUufufsh5Lkaooacn History: Dr. Serrano Medications albuterol-ipratropium 3 mg-0.5 [...] # 48 mL, 3 Refills, [facility], 90, USE 2SPRAYS IN EACH NOSTRIL DAILY, [...] tablet, 5 Refills, Maintenance, 12/07/21 9:56:00 EDT, 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, T1 N0, ER/[place] positive, 2003(Confirmed) COPD, moderate(Confirmed) Active Palpitations(Confirmed) Active Paroxysmal atrial Active fibrillation(Confirmed) Peripheral edema(Confirmed) Active Peripheral neuropathy(Confirmed) Active Severe obesity(Confirmed) Active 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
--- OUTSIDE RECORDS SUMMARY | 2022-05-13 11:54 | XMS_ITS | Continuity of Care Document ---
:1935 Author Organization [facility] Address [address] [place] [address]- Care Team Providers Name Role Phone Escobar CHASE, Landry Puentes Primary Care Physician Encounter [facility] [id number] Date(s): 03/01/19 - 04/05/[address] [address] [facility] Attending Physician: Joellen Crouch NP Admitting Physician: Joellen Crouch NP Referring Physician: Joellen Crouch NP Allergies, Adverse Reactions, Alerts Substance Reaction Severity Status lisinopril Active penicillins Active sulfa drugs hives Active Bactrim Active Adhesive Bandage Active Immunizations Given and Recorded Vaccine Date Status Refusal Reason Influenza Virus Vaccine (oldterm) 06/01/19 Recorded pneumococcal 13-valent vaccine1 08/06/16 Recorded tetanus/diphtheria/pertussis, acel(Tdap) 01/17/14 Given Zostavax (oldterm)2 08/06/12 Recorded pneumococcal 23-valent vaccine3 08/06/08 Recorded 1Location History: Dr. SerranoDwvrqvy4Qtefqngo History: Dr. SerranoAogelby0Tupmpizg History: Dr. Serrano Medications albuterol-ipratropium 3 mg-0.5 mg/3 ml inhalation solution 3 mL, Neb, 4 times a day, PRN Wheezing/Shortness of Breath, DX:R06.2, # 60 each, 5 Refills, Maintenance, 11/14/19 11:56:00 EDT, [facility], [id number], 3 mL Neb 4 times a day,PRN:Wheezing/Shortness of Breath,Instr:DX:R06.2, 165, cm, 08/20/19 11:... Start Date: 11/14/19 Status: OrderedB-Complex SR oral tablet, extended release By Mouth, Daily, 0 Refills, Maintenance, 06/30/19 11:06:14 EST Start Date: 06/30/19 Status: Orderedciprofloxacin 250 mg oral tablet 1 tablet = 250 mg, By Mouth, Every 12 hours, # 10 tablet, 0 Refills, Maintenance, 04/01/20 14:57:00 EDT, [facility]/pharmacy #[id number], 165, cm, 04/01/20 [...] 11 Refills, Maintenance, 11/27/19 16:40:00 EDT, Nasal [place], [facility]/pharmacy #0373, 2 sprays Nares, [...] tablet, 5 Refills, Maintenance, 11/13/19 15:07:00 EDT,Tablet, [facility]/pharmacy #0373, 165, cm, 08/20/19 [...]
--- OUTSIDE RECORDS SUMMARY | 2022-05-13 11:54 | XMS_ITS | Continuity of Care Document ---
:1935 Author Organization [facility] Address [address] [place] [address]- Care Team Providers Name Role Phone Escobar CHASE, Landry Puentes Primary Care Physician [place] [facility] [place] 02/01/22 - 02/08/22 [facility] [address] [place], [place] [address] Attending Physician: Talib George MD Admitting Physician: Talib George MD Allergies, Adverse Reactions, Alerts Substance Reaction Severity Status lisinopril Active penicillins Active sulfa drugs hives Active Adhesive Bandage Active Bactrim Active Immunizations Given and Recorded Vaccine Date Status Refusal Reason SARS-CoV-2 mRNA (pmbpdkj-sqap-vdwue) vax 12/01/21 Recorde d SARS-CoV-2 (COVID-19) mRNA [...] 23-valent vaccine3 08/06/08 Recorded 1Location History: Dr. SerranoYxnyoyr6Puxstzuf History: Dr. SerranoIgepaox7Ytwxrlwf History: Dr. Serrano Medications albuterol-ipratropium 3 mg-0.5 [...] # 48 mL, 3 Refills, [facility], 90, USE 2SPRAYS IN EACH NOSTRIL DAILY, [...] tablet, 5 Refills, Maintenance, 12/07/21 9:56:00 EDT, [facility]/pharmacy #[id number], 165, cm, 10/17/21 13:57:00 [...]
--- OUTSIDE RECORDS SUMMARY | 2022-05-13 11:54 | XMS_ITS | Continuity of Care Document ---
:1935 Author Organization [facility] Address [address] [place] [address]- Care Team Providers Name Role Phone Escobar CHASE, Landry Puentes Primary Care Physician [place] [facility] [place](s): 04/10/22 - 05/10/22 [facility] [address] [place] [address]- Allergies, Adverse Reactions, Alerts Substance Reaction Severity Status lisinopril Active penicillins Active sulfa drugs hives Active Bactrim Active Adhesive Bandage Active Immunizations Given and Recorded Vaccine Date Status Refusal Reason SARS-CoV-2 mRNA (bqdafah-wcwo-rviii) vax 12/01/21 Recorde d SARS-CoV-2 (COVID-19) mRNA [...] 23-valent vaccine3 08/06/08 Recorded 1Location History: Dr. SerranoWqrsriw0Vubseqhx History: Dr. SerranoEknrsbj4Txvyxqth History: Dr. Serrano Medications albuterol-ipratropium 3 mg-0.5 [...] DAILY, # 48 mL, 3 Refills, [facility] 9[facility]46, 90, USE 2SPRAYS IN EACH NOSTRIL DAILY, [...] capsule, 2 Refills, Maintenance, 01/30/22 14:25:00 EDT, [facility]/pharmacy #[id number], Partial fill upon patient request if the prescription is for a schedule II opioid drug., 165, cm, 01/20... Start Date: 01/30/22 Status: OrderedMyrbetriq 50 mg oral tablet, extended release 1 tablet = 50 mg, By Mouth, Daily, Replaces 25 mg dose, # 90 tablet, 3 Refills, Maintenance, 07/11/21 15:36:00 EST, [facility]/pharmacy #[id number], Partial fill upon patient [...] tablet, 1 Refills, Maintenance, 09/29/21 11:56:00 EST, [facility]/pharmacy #[id number], Partial fill upon patient request if the prescription is for a schedule II opioid drug., 165, cm, 09/29/21 11:29:00 EST, Height Start Date: 09/29/21 Status: Orderedtorsemide 20 mg oral tablet 1 tablet, By Mouth, Daily, # 90 tablet, 3 Refills, Maintenance, 05/03/22 9:39:00 EDT, [facility] 7[facility], 165, cm, 04/11/22 14:14:00 EDT, Height Start Date: 05/03/22 Status: OrderedVentolin 90 mcg Inhaler 2, puffs, [...] # 30 tablet, 5 Refills, [facility], 165, cm, 02/24/22 13:03:00EDT, Height Start Date: 03/08/22 Status: Ordered Problem List Condition Confirmation Course Effective Dates Status Health Stat us Informant Asthma Confirmed Active Atrial fibrillation Confirmed Active Chronic anxiety Confirmed Active GERD Confirmed Active (gastroesophageal reflux disease) HTN (hypertension) Confirmed Active Insomnia Confirmed Active 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
--- OUTSIDE RECORDS SUMMARY | 2022-05-13 11:54 | XMS_ITS | Continuity of Care Document ---
:1935 Author Organization [facility] Address [address] [place] [address]- Care Team Providers Name Role Phone Escobar CHASE, Landry Puentes Primary Care Physician Encounter [facility] Date(s): 09/28/21 - 10/28/21 [facility] [address] [place] [address]- Allergies, Adverse Reactions, Alerts Substance Reaction Severity [...] 23-valent vaccine3 08/06/08 Recorded 1Location History: Dr. SerranoFfhxbfb3Nnqyyxoc History: Dr. SerranoAxwmzfu7Ibyswykf History: Dr. Serrano Medications albuterol-ipratropium 3 mg-0.5 mg/3 ml inhalation solution 3 mL, Neb, 4 times a day, PRN Wheezing/Shortness of Breath, DX:R06.2, # 60 each, 5 Refills, Maintenance, 11/14/19 11:56:00 EDT, Solution, [facility]/pharmacy #[id number], 3 mL Neb 4 times [...] NOSTRIL DAILY, # 48 mL, 3 Refills, [facility] 85607, 90, USE 2SPRAYS IN EACH NOSTRIL DAILY, [...] Acute 02/03/22 8:00:00 EDT, 01/27/21 6:40:00 EDT, [facility]/pharmacy #[id number], Partial fill upon patient [...] tablet, 1 Refills, Maintenance, 09/29/21 11:56:00 EST, [facility]/pharmacy #0373, Partial fill upon patient [...] tablet, 5 Refills, Maintenance, 11/12/20 16:32:00 EDT, [facility] 52647, 165, cm, 10/27/20 10:30:00 EDT, Height Start [...]
--- OUTSIDE RECORDS SUMMARY | 2022-05-13 11:54 | XMS_ITS | Continuity of Care Document ---
:1935 Author Organization [facility] Address [address] [place] [address]- Care Team Providers Name Role Phone Escobar CHASE, Landry Puentes Primary Care Physician [place] [facility] Date(s): 02/27/22 - 03/29/22 [facility] [address] [place] [address]- Allergies, Adverse Reactions, Alerts Substance Reaction Severity Status lisinopril Active penicillins Active sulfa drugs hives Active Bactrim Active Adhesive Bandage Active Immunizations Given and Recorded Vaccine Date Status Refusal Reason SARS-CoV-2 mRNA (oldtzxu-ltag-jylup) vax 12/01/21 Recorde d SARS-CoV-2 (COVID-19) mRNA [...] 23-valent vaccine3 08/06/08 Recorded 1Location History: Dr. SerranoOhmewns2Tlhnupyw History: Dr. SerranoMxjkcle3Wxoljshe History: Dr. Serrano Medications albuterol-ipratropium 3 mg-0.5 [...] # 48 mL, 3 Refills, [facility], 90, USE 2SPRAYS IN EACH NOSTRIL DAILY, [...] in PM, # 30 tablet, 5 Refills, [facility], 165, cm, 02/24/22 13:03:00EDT, Height Start Date: [...] Team PersonnelName: Escobar CHASE, Landry Puentes Address: [address] [place] [id number]
--- OUTSIDE RECORDS SUMMARY | 2022-05-13 11:54 | XMS_ITS | Continuity of Care Document ---
:1935 Author Organization [facility] Address [address] [place] [address]- Care Team Providers Name Role Phone Escobar CHASE, Landry Puentes Primary Care Physician Encounter [facility] Date(s): 09/07/21 - 10/07/21 [facility] [address] [place] [address]- Allergies, Adverse Reactions, Alerts Substance Reaction Severity [...] 23-valent vaccine3 08/06/08 Recorded 1Location History: Dr. SerranoFsmpdaa4Onghmqbn History: Dr. SerranoUnsxfme3Yjkblmsv History: Dr. Zach Medications albuterol-ipratropium 3 mg-0.5 mg/3 ml inhalation solution 3 mL, Neb, 4 times a day, PRN Wheezing/Shortness of Breath, DX:R06.2, # 60 each, 5 Refills, Maintenance, 11/14/19 11:56:00 EDT, Solution, [facility]/pharmacy #0373, 3 mL Neb 4 [...] NOSTRIL DAILY, # 48 mL, 3 Refills, [facility] 80386, 90, USE 2SPRAYS IN EACH NOSTRIL DAILY, [...] Acute 02/03/22 8:00:00 EDT, 01/27/21 6:40:00 EDT, [facility]/pharmacy #[id number], Partial fill upon patient request if the prescription is for a schedule II opioid drug., 165, cm... Start Date: 01/27/21 Stop Date: 02/03/22 Status: OrderedMyrbetriq 50 mg oral tablet, extended release 1 tablet = 50 mg, By Mouth, Daily, Replaces 25 mg dose, # 90 tablet, 3 Refills, Maintenance, 07/11/21 15:36:00 EST, [facility]/pharmacy #[id number], Partial fill upon patient [...] tablet, 1 Refills, Maintenance, 09/29/21 11:56:00 EST, [facility]/pharmacy #[id number], Partial fill upon patient [...] Refills, Maintenance, 11/12/20 16:32:00 EDT, [facility], 165, cm, 10/27/20 10:30:00 EDT, Height Start Date: 11/12/20 Status: Ordered Problem List Condition Effective Dates Status Health Status Informant Asthma(Confirmed) Active Atrial fibrillation(Confirmed) Active Chronic anxiety(Confirmed) Active GERD (gastroesophageal reflux Active disease)(Confirmed) HTN (hypertension)(Confirmed) Active Insomnia(Confirmed) Active 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
--- OUTSIDE RECORDS SUMMARY | 2022-05-13 11:54 | XMS_ITS | Continuity of Care Document ---
:1935 Author Organization [facility] Address [address] [place] [address]- Care Team Providers Name Role Phone Landry Cody MD Primary Care Physician [place] [facility](s): 01/06/21 - 01/13/21 [facility] [address] [place] [address]- Attending Physician: Landry Cody MD Allergies, Adverse Reactions, Alerts Substance Reaction Severity Status lisinopril Active penicillins Active sulfa drugs hives Active Bactrim Active Adhesive Bandage Active Immunizations Given and Recorded Vaccine Date Status Refusal Reason Influenza Virus Vaccine (oldterm) 06/01/19 Recorded pneumococcal 13-valent vaccine1 08/06/16 Recorded tetanus/diphtheria/pertussis, acel(Tdap) 01/17/14 Given Zostavax (oldterm)2 08/06/12 Recorded pneumococcal 23-valent vaccine3 08/06/08 Recorded 1Location History: Dr. SerranoFjmjrsk1Ixhwdlrf History: Dr. SerranoDxqyrtg6Uwpfdmwe History: Dr. Serrano Medications albuterol-ipratropium 3 mg-0.5 [...] release By Mouth, Daily, 0 Refills, Maintenance, 12/09/19 11:06:14 EST Start Date: 06/30/19 Status: Orderedciprofloxacin 250 mg oral tablet 1 tablet = 250 mg, By Mouth, Every 12 hours, # 10 tablet, 0 Refills, Maintenance, 12/22/20 13:11:00 EDT, [facility]/pharmacy #[id number], 165, cm, 10/27/20 10:30:00 EDT, Height [...] 11 Refills, Maintenance, 11/27/19 16:40:00 EDT, Nasal [place], [facility]/pharmacy #0373, 2 sprays Nares, Both Daily, 165, cm, 08/20/19 11:09:00 EST, Height Start Date: 11/27/19 Status: Orderedgabapentin 100 mg oral capsule 100 mg, 1, capsule, By Mouth, 3 times a day, # 90 capsule, Refills 3, Tot. Refills 3, Maintenance, 04/21/20 13:09:00 EDT, Route to Pharmacy Electronically, [facility]/pharmacy #[id number], 165, cm, 04/01/20 13:58:00 EDT, [...] EDT, Route to Pharmacy Electronically, [facility], 165, cm, 10/27/20 10:30:00 EDT, Height Start [...] Refills, Maintenance, 11/12/20 16:32:00 EDT, [facility], 165, cm, 10/27/20 10:30:00 EDT, Height Start [...] oldest [Reference Range]: 1 Height 165.00 cm (01/06/21 2:34 PM) Oxygen Saturation [94-100 %] 95 % (01/06/21 2:34 PM) Pulse Rate [55-90 bpm] 73 bpm (01/06/21 2:34 PM) Blood Pressure [90-138/55-84 mm Hg] 157/85 mm Hg *H* (01/06/21 2:34 PM) Temperature [96.8-100.4 DegF] 97.4 DegF (01/06/21 2:34 PM) Mode of Delivery (Oxygen) Room air (01/06/21 2:34 PM) Blood pressure sites Arm, right (01/06/21 2:34 PM) Temperature Route Oral (01/06/21 2:34 PM) Social History Social History Type Response Smoking Status Never smoker entered on: 06/15/15 Sex
--- OUTSIDE RECORDS SUMMARY | 2022-05-13 11:54 | XMS_ITS | Continuity of Care Document ---
:1935 Author Organization [facility] Address [address] [place] [address]- Care Team Providers Name Role Phone Landry Cody MD Primary Care Physician Encounter [facility] Date(s): 05/03/22 - 05/10/22 [facility] [address] [place] [address]- Attending Physician: Landry Cody MD Allergies, Adverse Reactions, Alerts Substance Reaction Severity Status lisinopril Active penicillins Active Adhesive Bandage Active sulfa drugs hives Active Bactrim Active Immunizations Given and Recorded Vaccine Date Status Refusal Reason SARS-CoV-2 mRNA (hjqrmrx-pgis-mgdwx) vax 12/01/21 Recorde d SARS-CoV-2 (COVID-19) mRNA [...] 23-valent vaccine3 08/06/08 Recorded 1Location History: Dr. SerranoBjzeufo6Sumzmthk History: Dr. SerranoCupgrbh4Xtmulioj History: Dr. Serrano Medications albuterol-ipratropium 3 mg-0.5 [...] # 48 mL, 3 Refills, [facility], 90, USE 2SPRAYS IN EACH NOSTRIL DAILY, [...] capsule, 2 Refills, Maintenance, 01/30/22 14:25:00 EDT, [facility]/pharmacy #0373, Partial [...] 1 Refills, Maintenance, 09/29/21 11:56:00 EST, [facility]/pharmacy #0373, Partial fill upon patient request if the prescription is for a schedule II opioid drug., 165, cm, 09/29/21 11:29:00 EST, Height Start Date: 09/29/21 Status: Orderedtorsemide 20 mg oral tablet 1 tablet, By Mouth, Daily, # 90 tablet, 3 Refills, Maintenance, 05/03/22 9:39:00 EDT, [facility] ST[facility] 35710, 165, cm, 04/11/22 14:14:00 EDT, Height Start [...] # 30 tablet, 5 Refills, [facility], 165, cm, 02/24/22 13:03:00EDT, Height Start Date: 03/08/22 Status: Ordered Problem List Condition Confirmation Course Effective Dates Status Health Stat us Informant Asthma Confirmed Active Atrial fibrillation Confirmed Active Chronic anxiety Confirmed Active GERD Confirmed Active (gastroesophageal reflux disease) HTN (hypertension) Confirmed Active Insomnia Confirmed Active 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89 kg/m2 *>HHI* (05/03/22 2:57 PM) Blood Pressure [90-138/55-84 mm Hg] 158/81 mm Hg *H* (05/03/22 2:57 PM) Temperature [96.8-100.4 DegF] 97.5 DegF (05/03/22 2:57 PM) Mode of Delivery (Oxygen) Room air (05/03/22 2:57 PM) Blood pressure sites Arm, left (05/03/22 2:57 PM) Temperature Route Temporal (05/03/22 2:57 PM) Weight Obtained Via Standing scale (05/03/22 2:57 PM) Social History Social History Type Response Smoking Status Never smoker entered on: 06/15/15 Sex Patient Care team information PersonnelName: Escobar CHASE, Landry Puentes Address: Address: [address] [place] [id number]
--- OUTSIDE RECORDS SUMMARY | 2022-05-13 11:54 | XMS_ITS | Continuity of Care Document ---
:1935 Author Organization [facility] Adult Address [address] [place] [address]- Care Team Providers Name Role Phone Escobar CHASE, Landry Puentes Primary Care Physician [place] [facility] [facility] [place]21 [facility] Adult [address] [place] [address]- Allergies, Adverse Reactions, Alerts Substance Reaction Severity [...] 23-valent vaccine3 08/06/08 Recorded 1Location History: Dr. SerranoTmcdohy3Npnbsjsq History: Dr. SerranoJcshrub7Alcwhjzy History: Dr. Serrano Medications albuterol-ipratropium 3 mg-0.5 mg/3 ml inhalation solution 3 mL, Neb, 4 times a day, PRN Wheezing/Shortness of Breath, DX:R06.2, # 60 each, 5 Refills, Maintenance, 11/14/19 11:56:00 EDT, Solution, [facility]/pharmacy #[id number], 3 mL Neb 4 times [...] NOSTRIL DAILY, # 48 mL, 3 Refills, [facility] STORE 00751, 90, USE 2SPRAYS IN EACH NOSTRIL DAILY, [...] Acute 02/03/22 8:00:00 EDT, 01/27/21 6:40:00 EDT, [facility]/pharmacy #[id number], Partial fill upon patient request if the prescription is for a schedule II opioid drug., 165, cm... Start Date: 01/27/21 Stop Date: 02/03/22 Status: OrderedMyrbetriq 50 mg oral tablet, extended release 1 tablet = 50 mg, By Mouth, Daily, Replaces 25 mg dose, # 90 tablet, 3 Refills, Maintenance, 07/11/21 15:36:00 EST, [facility]/pharmacy #[id number], Partial fill upon patient request [...] tablet, 1 Refills, Maintenance, 09/29/21 11:56:00 EST, [facility]/pharmacy #[id number], Partial fill upon patient request [...] Refills, Maintenance, 11/12/20 16:32:00 EDT, [facility], 165, cm, 10/27/20 10:30:00 EDT, Height Start Date: 11/12/20 Status: Ordered Problem List Condition Effective Dates Status Health Status Informant Asthma(Confirmed) Active Atrial fibrillation(Confirmed) Active Chronic anxiety(Confirmed) Active GERD (gastroesophageal reflux Active disease)(Confirmed) HTN (hypertension)(Confirmed) Active Insomnia(Confirmed) Active 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), 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, T1 N0, ER/[place] positive, 2003(Confirmed) COPD, moderate(Confirmed) Active Palpitations(Confirmed) Active Paroxysmal atrial Active fibrillation(Confirmed) Peripheral edema(Confirmed) Active Peripheral neuropathy(Confirmed) Active Severe obesity(Confirmed) Active 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
--- OUTSIDE RECORDS SUMMARY | 2022-05-13 11:54 | XMS_ITS | Continuity of Care Document ---
:1935 Author Organization [facility] Adult Address [address] [place] [address]- Care Team Providers Name Role Phone Escobar CHASE, Landry Puentes Primary Care Physician En[place] [facility] [place] 03/14/22 - 04/13/22 [facility] Adult [address] [place] [address]- Allergies, Adverse Reactions, Alerts Substance Reaction Severity Status lisinopril Active penicillins Active sulfa drugs hives Active Bactrim Active Adhesive Bandage Active Immunizations Given and Recorded Vaccine Date Status Refusal Reason SARS-CoV-2 mRNA (erlkhyj-xadq-mhutd) vax 12/01/21 Recorde d SARS-CoV-2 (COVID-19) mRNA [...] 23-valent vaccine3 08/06/08 Recorded 1Location History: Dr. SerranoZybwfeq8Klplzgne History: Dr. SerranoFkgttmi1Gaidvrgb History: Dr. Serrano Medications albuterol-ipratropium 3 mg-0.5 [...] NOSTRIL DAILY, # 48 mL, 3 Refills, [facility] STORE 17505, 90, USE 2SPRAYS IN EACH NOSTRIL DAILY, [...] in PM, # 30 tablet, 5 Refills, [facility] STORE 52452, 165, cm, 02/24/22 13:03:00EDT, Height Start Date: 03/08/22 Status: Ordered Problem List Condition Effective Dates Status Health Status Informant Asthma(Confirmed) Active Atrial fibrillation(Confirmed) Active Chronic anxiety(Confirmed) Active GERD (gastroesophageal reflux Active disease)(Confirmed) HTN (hypertension)(Confirmed) Active Insomnia(Confirmed) Active 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), 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, T1 N0, ER/[place] positive, 2003(Confirmed) COPD, moderate(Confirmed) Active Palpitations(Confirmed) Active Paroxysmal atrial Active fibrillation(Confirmed) Peripheral edema(Confirmed) Active Peripheral neuropathy(Confirmed) Active Severe obesity(Confirmed) Active 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 Care Team PersonnelName: Landry Cody MD Address: [address] [place] [id number]
--- OUTSIDE RECORDS SUMMARY | 2022-05-13 11:54 | XMS_ITS | Continuity of Care Document ---
:1935 Author Organization [facility] Adult Address [address] [place] [address]- Care Team Providers Name Role Phone Escobar CHASE, Landry Puentes Primary Care Physician [place] [facility] [place] Date(s): 04/01/20 - 04/08/20 [facility] Adult [address] [place] [address]- [facility] Attending Physician: Renato Cook MD Allergies, Adverse Reactions, Alerts Substance Reaction Severity Status lisinopril Active penicillins Active sulfa drugs hives Active Bactrim Active Adhesive Bandage Active Immunizations Given and Recorded Vaccine Date Status Refusal Reason Influenza Virus Vaccine (oldterm) 06/01/19 Recorded pneumococcal 13-valent vaccine1 08/06/16 Recorded tetanus/diphtheria/pertussis, acel(Tdap) 01/17/14 Given Zostavax (oldterm)2 08/06/12 Recorded pneumococcal 23-valent vaccine3 08/06/08 Recorded 1Location History: Dr. SerranoXafsklq0Qnsrtand History: Dr. SerranoMkuttzl9Zawmwkgg History: Dr. Serrano Medications albuterol-ipratropium 3 mg-0.5 [...] tablet, 0 Refills, Maintenance, 04/01/20 14:57:00 EDT, [facility]/pharmacy #[id number], 165, cm, 04/01/20 13:58:00 EDT, [...] 11 Refills, Maintenance, 11/27/19 16:40:00 EDT, Nasal [place], [facility]/pharmacy #0373, 2 sprays Nares, Both Daily, [...] tablet, 5 Refills, Maintenance, 11/13/19 15:07:00 EDT,Tablet, [facility]/pharmacy #0373, 165, cm, 08/20/19 11:09:00 EST, Height [...] oldest [Reference Range]: 1 Height 165.00 cm (04/01/20 1:58 PM) Social History Social History Type Response Smoking Status Never smoker entered on: 06/15/15 Sex
--- OUTSIDE RECORDS SUMMARY | 2022-05-13 11:54 | XMS_ITS | Continuity of Care Document ---
:1935 Author Organization [facility] Adult Address [address] [place] [address]- Care Team Providers Name Role Phone Escobar CHASE, Landry Puentes Primary Care Physician Encounter [facility] Date(s): 01/31/22 - 03/02/22 [facility] Adult [address] [place] [address]- Allergies, Adverse Reactions, Alerts Substance Reaction Severity Status lisinopril Active penicillins Active sulfa drugs hives Active Bactrim Active Adhesive Bandage Active Immunizations Given and Recorded Vaccine Date Status Refusal Reason SARS-CoV-2 mRNA (nypmkef-haqe-ntzvr) vax 12/01/21 Recorde d SARS-CoV-2 (COVID-19) mRNA [...] 23-valent vaccine3 08/06/08 Recorded 1Location History: Dr. SerranoHomoqtr7Omsyqtiz History: Dr. SerranoVqttfbu7Ibcksegg History: Dr. Serrano Medications albuterol-ipratropium 3 mg-0.5 [...] NOSTRIL DAILY, # 48 mL, 3 Refills, [facility] STORE 77705, 90, USE 2SPRAYS IN EACH NOSTRIL DAILY, [...] tablet, 5 Refills, Maintenance, 12/07/21 9:56:00 EDT, [facility]/pharmacy #[id number], 165, cm, 10/17/21 13:57:00 EDT, Height Start Date: 12/07/21 Status: Ordered Problem List Condition Effective Dates Status Health Status Informant Asthma(Confirmed) Active Atrial fibrillation(Confirmed) Active Chronic anxiety(Confirmed) Active GERD (gastroesophageal reflux Active disease)(Confirmed) HTN (hypertension)(Confirmed) Active Insomnia(Confirmed) Active 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), 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, T1 N0, ER/[place] positive, 2003(Confirmed) COPD, moderate(Confirmed) Active Palpitations(Confirmed) Active Paroxysmal atrial Active fibrillation(Confirmed) Peripheral edema(Confirmed) Active Peripheral neuropathy(Confirmed) Active Severe obesity(Confirmed) Active 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
--- OUTSIDE RECORDS SUMMARY | 2022-05-13 11:54 | XMS_ITS | Continuity of Care Document ---
:1935 Author Organization [facility] Address [address] [place] [address]- Care Team Providers Name Role Phone Landry Cody MD Primary Care Physician [id number] Date(s): 04/04/22 - 04/11/22 [facility] [address] [place] [address]- Attending Physician: Talib George MD Admitting Physician: Talib George MD Referring Physician: Landry Cody MD Allergies, Adverse Reactions, Alerts Substance Reaction Severity Status lisinopril Active penicillins Active Bactrim Active Adhesive Bandage Active sulfa drugs hives Active Immunizations Given and Recorded Vaccine Date Status Refusal Reason SARS-CoV-2 mRNA (qzjsnrp-fwdw-oopul) vax 12/01/21 Recorde d SARS-CoV-2 (COVID-19) mRNA [...] 23-valent vaccine3 08/06/08 Recorded 1Location History: Dr. SerranoXibpzmh8Nvugfchd History: Dr. SerranoWbsmuav5Kqbomuqo History: Dr. Serrano Medications albuterol-ipratropium 3 mg-0.5 [...] # 48 mL, 3 Refills, [facility], 90, USE 2SPRAYS IN EACH NOSTRIL DAILY, [...] # 30 tablet, 5 Refills, [facility], 165, cm, 02/24/22 13:03:00EDT, Height Start Date: [...] oldest [Reference Range]: 1 Height 165.00 cm (04/04/22 8:46 AM) Weight 118 kg (04/04/22 8:46 AM) Oxygen Saturation [94-100 %] 92 % *L* (04/04/22 8:46 AM) Pulse Rate [55-90 bpm] 81 bpm (04/04/22 8:46 AM) Body Mass Index [18.5-24.99] 43.34 *>HHI* (04/04/22 8:46 AM) Blood Pressure [90-138/55-84 mm Hg] 124/80 mm Hg (04/04/22 8:46 AM) Mode of Delivery (Oxygen) Room air (04/04/22 8:46 AM) Blood pressure sites Arm, left (04/04/22 8:46 AM) Weight Obtained Via Patient/family stated (04/04/22 8:46 AM) Social History Social History Type Response Smoking Status Never smoker entered on: 06/15/15 Sex Care Team PersonnelName: Escobar CHASE, Landry Puentes Address: [address] [place] [address]-
--- OUTSIDE RECORDS SUMMARY | 2022-05-13 11:54 | XMS_ITS | Continuity of Care Document ---
:1935 Author Organization [facility] Adult Address [address] [place] [address]- Care Team Providers Name Role Phone Escobar CHASE, Landry Puentes Primary Care Physician Encounter [facility] Date(s): 12/14/21 - 01/13/22 [facility] Adult [address] [place] [address]- Allergies, Adverse Reactions, Alerts Substance Reaction Severity Status lisinopril Active penicillins Active sulfa drugs hives Active Adhesive Bandage Active Bactrim Active Immunizations Given and Recorded Vaccine Date Status Refusal Reason SARS-CoV-2 mRNA (ymayjpi-hacw-memho) vax 12/01/21 Recorde d SARS-CoV-2 (COVID-19) mRNA [...] 23-valent vaccine3 08/06/08 Recorded 1Location History: Dr. SerranoDfnunjp4Burgfunm History: Dr. SerranoRbkcxmd9Nqhesbzc History: Dr. Serrano Medications albuterol-ipratropium 3 mg-0.5 [...] # 48 mL, 3 Refills, [facility], 90, USE 2SPRAYS IN EACH NOSTRIL DAILY, [...] capsule, 5 Refills, Maintenance, 12/23/21 16:14:00 EDT, [facility]/pharmacy #[id number], Partial fill upon patient request if the prescription is for a schedule II opioid drug., 165, cm, 12/23/21 15:49:00 EDT, He... Start Date: 12/23/21 Status: OrderedMyrbetriq 50 mg oral tablet, extended release 1 tablet = 50 mg, By Mouth, Daily, Replaces 25 mg dose, # 90 tablet, 3 Refills, Maintenance, 07/11/21 15:36:00 EST, [facility]/pharmacy #0373, Partial fill [...] tablet, 1 Refills, Maintenance, 09/29/21 11:56:00 EST, [facility]/pharmacy #[id number], Partial fill upon patient request if the prescription is for a schedule II opioid drug., 165, cm, 09/29/21 11:29:00 EST, Height Start Date: 09/29/21 Status: Orderedtorsemide 10 mg oral tablet 1 tablet = 10 mg, By Mouth, Daily, Patient has tolerated in the past, # 30 tablet, 2 Refills, Maintenance, 12/23/21 16:16:00 EDT, Tablet, [facility]/pharmacy #0373, Partial fill [...] tablet, 5 Refills, Maintenance, 12/07/21 9:56:00 EDT, [facility]/pharmacy #0373, 165, cm, 10/17/21 13:57:00 EDT, [...]
--- OUTSIDE RECORDS SUMMARY | 2022-05-13 11:54 | XMS_ITS | Continuity of Care Document ---
:1935 Author Organization [facility] Adult Address [address] [place] [address]- Care Team Providers Name Role Phone Escobar CHASE, Landry Puentes Primary Care Physician [place] [facility] [place] 05/01/20 [facility] Adult [address] [place] [address]- [facility] Attending Physician: Admtr, Ar8 Admitting Physician: Admtr, [...] 23-valent vaccine3 08/06/08 Recorded 1Location History: Dr. SerranoPjkolqn3Ujgyrkfl History: Dr. SerranoSnyvjtz7Lhhhsusv History: Dr. Serrano Medications albuterol-ipratropium 3 mg-0.5 mg/3 ml inhalation solution 3 mL, Neb, 4 times a day, PRN Wheezing/Shortness of Breath, DX:R06.2, # 60 each, 5 Refills, Maintenance, 11/14/19 11:56:00 EDT, [id number], 3 mL Neb 4 times a day,PRN:Wheezing/Shortness of Breath,Instr:DX:R06.2, 165, cm, 08/20/19 11:... Start Date: 11/14/19 Status: OrderedB-Complex SR oral tablet, extended release By Mouth, Daily, 0 Refills, Maintenance, 06/30/19 11:06:14 EST Start Date: 06/30/19 Status: Orderedciprofloxacin 250 mg oral tablet 1 tablet = 250 mg, By Mouth, Every 12 hours, # 10 tablet, 0 Refills, Maintenance, 04/01/20 14:57:00 EDT, [facility]/pharmacy #0373, 165, cm, 04/01/20 [...] 11 Refills, Maintenance, 11/27/19 16:40:00 EDT, Nasal [place], [facility]/pharmacy #0373, 2 sprays Nares, Both Daily, 165, cm, 08/20/19 11:09:00 EST, Height Start Date: 11/27/19 Status: Orderedgabapentin 100 mg oral capsule 100 mg, 1, capsule, By Mouth, 3 times a day, # 90 capsule, Refills 3, Tot. Refills 3, Maintenance, 04/21/20 13:09:00 EDT, Route to Pharmacy Electronically, [facility]/pharmacy #[id number], 165, cm, 04/01/20 [...] Breast (Female), 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, T1 N0, ER/[place] positive, 2003(Confirmed) COPD, moderate(Confirmed) Active Palpitations(Confirmed) Active Paroxysmal atrial Active fibrillation(Confirmed) Peripheral neuropathy(Confirmed) Active 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
--- OUTSIDE RECORDS SUMMARY | 2022-05-13 11:54 | XMS_ITS | Continuity of Care Document ---
:1935 Author Organization [facility] Adult Address [address] [place] [address]- Care Team Providers Name Role Phone Landry Cody MD Primary Care Physician Encounter [facility] [place] Date(s): 04/11/22 - 04/18/22 [facility] Adult [address] [place] [address]- Attending Physician: Landry Cody MD Allergies, Adverse Reactions, Alerts Substance Reaction Severity Status lisinopril Active penicillins Active sulfa drugs hives Active Bactrim Active Adhesive Bandage Active Immunizations Given and Recorded Vaccine Date Status Refusal Reason SARS-CoV-2 mRNA (nlqospm-wieh-bhrvf) vax 12/01/21 Recorde d SARS-CoV-2 (COVID-19) mRNA [...] 23-valent vaccine3 08/06/08 Recorded 1Location History: Dr. SerranoGrasrqy8Kzgngsip History: Dr. SerranoDtdqjyz9Owlommvf History: Dr. Serrano Medications albuterol-ipratropium 3 mg-0.5 [...] # 48 mL, 3 Refills, [facility], 90, USE 2SPRAYS IN EACH NOSTRIL DAILY, [...] capsule, 2 Refills, Maintenance, 01/30/22 14:25:00 EDT, [facility]/pharmacy #[id number], Partial fill upon patient request if [...] # 30 tablet, 5 Refills, [facility], 165, cm, 02/24/22 13:03:00EDT, Height Start Date: [...] oldest [Reference Range]: 1 Height 165.00 cm (04/11/22 2:14 PM) Weight 115.8 kg (04/11/22 2:14 PM) Body Mass Index [18.5-24.99 kg/m2] 42.53 kg/m2 *>HHI* (04/11/22 2:14 PM) Weight Obtained Via Patient/family stated (04/11/22 2:14 PM) Social History Social History Type Response Smoking Status Never smoker entered on: 06/15/15 Sex Care Team PersonnelName: Landry Cody MD Address: [address] [place] [address] [place], [place] [address]
--- OUTSIDE RECORDS SUMMARY | 2022-05-13 11:54 | XMS_ITS | Continuity of Care Document ---
:1935 Author Organization [facility] Adult Address [address] [place] [address]- Care Team Providers Name Role Phone Landry Cody MD Primary Care Physician [place] [facility] [place] [facility] [place] 09/02/20 - 09/09/20 [facility] Adult [address] [place] [address]- Attending Physician: Landry Cody MD Allergies, Adverse Reactions, Alerts Substance Reaction Severity Status lisinopril Active penicillins Active sulfa drugs hives Active Bactrim Active Adhesive Bandage Active Immunizations Given and Recorded Vaccine Date Status Refusal Reason Influenza Virus Vaccine (oldterm) 06/01/19 Recorded pneumococcal 13-valent vaccine1 08/06/16 Recorded tetanus/diphtheria/pertussis, acel(Tdap) 01/17/14 Given Zostavax (oldterm)2 08/06/12 Recorded pneumococcal 23-valent vaccine3 08/06/08 Recorded 1Location History: Dr. SerranoYvysaqu0Esualdnq History: Dr. SerranoTfpgijn6Nehhteag History: Dr. Serrano Medications albuterol-ipratropium 3 mg-0.5 [...] 11 Refills, Maintenance, 11/27/19 16:40:00 EDT, Nasal [place], [facility]/pharmacy #0373, 2 sprays Nares, Both Daily, 165, cm, 08/20/19 11:09:00 EST, Height Start Date: 11/27/19 Status: Orderedgabapentin 100 mg oral capsule 100 mg, 1, capsule, By Mouth, 3 times a day, # 90 capsule, Refills 3, Tot. Refills 3, Maintenance, 04/21/20 13:09:00 EDT, Route to Pharmacy Electronically, [facility]/pharmacy #[id number], 165, cm, 04/01/20 13:58:00 EDT, [...] Breast (Female), 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, T1 N0, ER/[place] positive, 2003(Confirmed) COPD, moderate(Confirmed) Active Palpitations(Confirmed) Active Paroxysmal atrial Active fibrillation(Confirmed) Peripheral neuropathy(Confirmed) Active 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
--- OUTSIDE RECORDS SUMMARY | 2022-05-13 11:54 | XMS_ITS | Continuity of Care Document ---
:1935 Author Organization [facility] Address [address] [place] [address]- Care Team Providers Name Role Phone Escobar CHASE, Landry Puentes Primary Care Physician Encounter [facility] [place] Date(s): 02/03/22 - 03/05/22 [facility] [address] [place] [address] Allergies, Adverse Reactions, Alerts Substance Reaction Severity Status lisinopril Active penicillins Active sulfa drugs hives Active Bactrim Active Adhesive Bandage Active Immunizations Given and Recorded Vaccine Date Status Refusal Reason SARS-CoV-2 mRNA (qmecguf-yohg-nqgud) vax 12/01/21 Recorde d SARS-CoV-2 (COVID-19) mRNA [...] 23-valent vaccine3 08/06/08 Recorded 1Location History: Dr. SerranoFxovfss7Xuimgiol History: Dr. SerranoMuddigx8Argxqfnj History: Dr. Serrano Medications albuterol-ipratropium 3 mg-0.5 [...] NOSTRIL DAILY, # 48 mL, 3 Refills, [facility] STORE 06393, 90, USE 2SPRAYS IN EACH NOSTRIL DAILY, [...] capsule, 2 Refills, Maintenance, 01/30/22 14:25:00 EDT, [facility]/pharmacy #0373, Partial fill upon patient request if the prescription is for a schedule II opioid drug., 165, cm, 01/20... Start Date: 01/30/22 Status: OrderedMyrbetriq 50 mg oral tablet, extended release 1 tablet = 50 mg, By Mouth, Daily, Replaces 25 mg dose, # 90 tablet, 3 Refills, Maintenance, 07/11/21 15:36:00 EST, [facility]/pharmacy #0373, Partial fill upon patient request if [...] tablet, 1 Refills, Maintenance, 09/29/21 11:56:00 EST, [facility]/pharmacy #0373, Partial fill upon patient request if [...]
--- OUTSIDE RECORDS SUMMARY | 2022-05-13 11:54 | XMS_ITS | Continuity of Care Document ---
:1935 Author Organization [facility] Address [address] [place] [address]- Care Team Providers Name Role Phone Escobar CHASE, Landry Puentes Primary Care Physician Encounter [facility] [place] Date(s): 06/10/20 - 07/10/20 [facility] [address] [place] [address]- Attending Physician: Admtr, Ar8 Admitting Physician: Admtr, [...] 23-valent vaccine3 08/06/08 Recorded 1Location History: Dr. SerranoSvuvxzi4Emkdcygb History: Dr. SerranoIbpexpw6Ghftqjln History: Dr. Serrano Medications albuterol-ipratropium 3 mg-0.5 mg/3 ml inhalation solution 3 mL, Neb, 4 times a day, PRN Wheezing/Shortness of Breath, DX:R06.2, # 60 each, 5 Refills, Maintenance, 11/14/19 11:56:00 EDT, [id number], 3 mL Neb 4 times a day,PRN:Wheezing/Shortness [...] 11 Refills, Maintenance, 11/27/19 16:40:00 EDT, Nasal [place], [facility]/pharmacy #0373, 2 sprays Nares, Both Daily, 165, cm, 08/20/19 11:09:00 EST, Height Start Date: 11/27/19 Status: Orderedgabapentin 100 mg oral capsule 100 mg, 1, capsule, By Mouth, 3 times a day, # 90 capsule, Refills 3, Tot. Refills 3, Maintenance, 04/21/20 13:09:00 EDT, Route to Pharmacy Electronically, [facility]/pharmacy #[id number], 165, cm, 04/01/20 13:58:00 [...] tablet, 5 Refills, Maintenance, 05/12/20 13:06:00 EDT,Tablet, [facility]/pharmacy #0373, 165, cm, 04/01/20 13:58:00 EDT, Height Start Date: 05/12/20 Status: Ordered Problem List Condition Effective Dates Status Health Status Informant Asthma(Confirmed) Active Atrial fibrillation(Confirmed) Active Chronic anxiety(Confirmed) Active GERD (gastroesophageal reflux Active disease)(Confirmed) HTN (hypertension)(Confirmed) Active Insomnia(Confirmed) Active 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
--- OUTSIDE RECORDS SUMMARY | 2022-05-13 11:54 | XMS_ITS | Continuity of Care Document ---
:1935 Author Organization [facility] Adult Address [address] [place] [address]- Care Team Providers Name Role Phone Landry Cody MD Primary Care Physician Encounter [facility] Date(s): 03/11/21 - 05/13/21 [facility] [address] [place] [address]- Attending Physician: Landry Cody MD Allergies, Adverse [...] 23-valent vaccine3 08/06/08 Recorded 1Location History: Dr. [id number] History: Dr. [id number] History: Dr. Serrano Medications albuterol-ipratropium 3 mg-0.5 mg/3 ml inhalation solution 3 mL, Neb, 4 times a day, PRN Wheezing/Shortness of Breath, DX:R06.2, # 60 each, 5 Refills, Maintenance, 11/14/19 11:56:00 EDT, Solution, [facility]/pharmacy #[id number], 3 mL Neb 4 times [...] 11 Refills, Maintenance, 11/27/19 16:40:00 EDT, Nasal [place], [id number], 2 sprays Nares, Both Daily, 165, cm, 08/20/19 11:09:00 EST, Height Start Date: 11/27/19 Status: Orderedgabapentin 300 mg oral capsule 300 mg, 1, capsule, By Mouth, 3 times a day, # 270 capsule, Refills 3, Tot. Refills 3, Maintenance, 01/27/21 6:43:00 EDT, Route to Pharmacy Electronically, [facility]/pharmacy #[id number], Partial fill upon patientrequest if the prescription is for a schedule II... Start Date: 01/27/21 Status: OrderedLORazepam 1 mg oral tablet 1 tablet = 1 mg, By Mouth, Daily, PRN as needed for anxiety, # 20 tablet, 0 Refills, Acute 02/03/22 8:00:00 EDT, 01/27/21 6:40:00 EDT, [facility]/pharmacy #[id number], Partial fill upon patient request if the prescription is for a schedule II opioid drug., 165, cm... Start Date: 01/27/21 Stop Date: 02/03/22 Status: OrderedMyrbetriq 50 mg oral tablet, extended release 1 tablet = 50 mg, By Mouth, Daily, Replaces 25 mg dose, # 90 tablet, 3 Refills, Maintenance, 05/08/21 11:08:00 EDT, [facility]/pharmacy #[id number], Partial fill upon patient request [...] Refills 0, Route to Pharmacy Electronically, [id number], 165, cm, 03/11/21 9:11:00 EDT, Height Start [...] Refills, Maintenance, 04/23/21 16:32:00 EDT, [id number], 165, cm, 10/27/20 10:30:00 EDT, Height Start Date: 11/12/20 Status: Ordered Problem List Condition Effective Dates Status Health Status Informant Asthma(Confirmed) Active Atrial fibrillation(Confirmed) Active Chronic anxiety(Confirmed) Active GERD (gastroesophageal reflux Active disease)(Confirmed) HTN (hypertension)(Confirmed) Active Insomnia(Confirmed) Active 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
[2022-05-13 11:56] VITALS: BP 129/51; PULSE 97; RESP 16; TEMP 36.5; O2SAT 95
[2022-05-13 12:21] LABS: Alanine Aminotransferase 9 U/L (0-31); Albumin Level 3.6 g/dL (3.5-5.0); Alkaline Phosphatase 114 U/L (39-117); Anion Gap 16 (12-20); Aspartate Amino Transferase 16 U/L (5-31); Bilirubin Direct 0.3 mg/dL (0.0-0.5); Bilirubin Total 0.9 mg/dL (0.0-1.0); Blood Urea Nitrogen 14 mg/dL (9-16); C Reactive Protein 2.26 mg/dL (< or = 0.50); Calcium 9.7 mg/dL (8.4-10.2); Carbon Dioxide 29 mmol/L (22-29); Chloride 102 mmol/L (96-108); Creatinine Clr Calc Pharmacy 63.8; Estimated Glomerular Filt Rate > 60; Glucose Random 106 mg/dL (60-115); Lactate Dehydrogenase 183 U/L (122-220); Magnesium 1.6 mg/dL (1.6-2.6); Potassium 4.6 mmol/L (3.3-5.1); Sodium 142 mmol/L (135-145); Total Protein 6.9 g/dL (6.5-8.0)
--- NOTE | 2022-05-13 12:21 | PHA.MEDREC ---
Pharmacy Consult ? Medication Reconciliation Pharmacy has completed the medication reconciliation.
[2022-05-13 13:30] LABS: Troponin-I High Sensitivity 11.3 ng/L (<3.5-17.0)
[2022-05-13 13:40] LABS: B Type Natriuretic Peptide 66 pg/mL (<100)
[2022-05-13 14:07] LABS: INTERNATIONAL NORM RATIO 1.2 (0.9-1.1); Prothrombin Time 13.6 SEC (10.0-13.1)
[2022-05-13 14:09] LABS: D Dimer High Sensitivity 419 NG/ML
[2022-05-13 14:10] LABS: Partial Thromboplastin Time 30.5 SEC (26.0-36.4)
[2022-05-13 14:33] LABS: Procalcitonin 0.02 ng/mL
--- NOTE | 2022-05-13 15:21 | PM.IMHP ---
History of Present Illness Date of Service: 05/13/22 Chief Complaint: fall, hypoxia An 86 y\o lady w PMH of Afib on Xarelto, COPD, chronic leg edema among others who presents to the hospital after sustaining a fall at home. 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 reportss that she is vaccinated but got covid 1 week earlier, noticed overall weakness but was eating well. was getting out of shower today when she slipped and fell but couldnt get up so EMS was called who found her hypoxic to early 80s. responded partially to steroids and nebulizer treatment as she was placed on oxygen supplement to bring her sat to 90s. Evaluated in ED with CXR showing no evidence of pneumonia. Head CT negative for any acute findings. admitted for further eval and treatment. Review of Systems Review of Systems: No fever, chills but has generalized weakness No chest pain, palpitation , swelling of lower extremities No shortness of breath or coughing No abdominal pain, nausea or vomiting No urinary symptoms No any rash or wounds PMFSH Medical History COPD (chronic obstructive pulmonary disease) Obesity Paroxysmal atrial fibrillation Pulmonary hypertension Restrictive lung disease Family History Father CVD (cardiovascular disease) Mother No problems noted. Surgical History History of lumpectomy of right breast History of umbilical hernia repair Hx of appendectomy Hx of cholecystectomy Hx of colonoscopy Social History Smoked in Last 30 Days: No Use of substances other than those prescribed or required for medical reasons: No Advance Directives: No Meds Allergies Allergy/AdvReac Type Severity Reaction Status Date / Time latex [LATEX] Allergy Unknown RASH Verified 05/30/21 16:00 penicillin G [PENICILLIN G] Allergy Unknown SOB, RASH Verified 05/30/21 16:00 Sulfa (Sulfonamide Allergy Unknown hives, Verified 05/30/21 16:00 Antibiotics) itching Active Medications: Current Medications Acetaminophen (Acetaminophen 325 Mg Tablet) 650 mg PO Q6H PRN PRN Reason: Pain, Mild (Pain Scale 1-3) Ondansetron HCl (Ondansetron Hcl 4 Mg/2 Ml Vial) 4 mg IVPUSH Q8H PRN PRN Reason: Nausea and Vomiting Pharmacy Consult (Consult Rx Perform Med Rec) 1 each MISCELLANE ONCE PRN PRN Reason: Consult order Sodium Chloride (0.9 % Sodium Chloride Flush 3 Ml Syringe) [facility] Medications Medication Instructions Recorded Confirmed Last Taken Type ascorbic acid (vitamin C) 500 mg 500 mg PO DAILY 10/12/20 05/13/22 Unknown History capsule rivaroxaban 20 mg tablet 20 mg PO BEDTIME 11/16/20 05/13/22 Unknown History fluticasone propionate 50 2 spray intranasal DAILY 05/30/21 05/13/22 Unknown History mcg/actuation nasal spray,suspension vitamin B complex (Vitamins B 1 tab PO DAILY 05/30/21 05/13/22 Unknown History Complex tablet) fluoxetine 10 mg capsule 10 mg PO BEDTIME 04/17/22 05/13/22 Unknown History pregabalin 150 mg capsule 150 mg PO DAILY 04/17/22 05/13/22 Unknown History torsemide 20 mg tablet 20 mg PO DAILY 04/17/22 05/13/22 Unknown History albuterol sulfate 90 mcg/actuation 2 puff inhalation Q6H PRN 05/13/22 05/13/22 Unknown History aerosol inhaler (Ventolin HFA) Shortness Of Breath fluoxetine 20 mg capsule 1 cap PO BEDTIME 05/13/22 05/13/22 Unknown History trazodone 50 mg tablet 1 tab PO BEDTIME PRN Insomnia 05/13/22 05/13/22 Unknown History Physical Exam Vital Signs and Narrative: Vital Signs: Last Vital Signs Temp 97.7 F 05/13/22 11:56 Pulse 97 05/13/22 11:56 Resp 16 05/13/22 11:56 BP 129/51 L 05/13/22 11:56 Pulse Ox 95 05/13/22 11:56 O2 Del Method 05/13/22 11:56 O2 Flow Rate 2 05/13/22 11:56 Oxygen Flow Rate 2 05/13/22 10:54 BMI result Body Mass Index 42.9 Const: Other: Constitutional : Alert, oriented, not in distress Neck : Normal inspection, Supple Cardiovascular : RRR, no JVP, +1 lower extremity edema Respiratory : fair bilateral air entry, no crackles, fine scattered expiratory wheezes Gastrointestinal: soft, lax, Normal bowel sounds, Non tender Skin : Warm, Dry, chronic stasis dermatitis findings Neurological : Alert & oriented x3, No focal deficit Results Labs CBC and Chem 7: 05/13/22 11:11 05/13/22 11:11 Labs: Laboratory Results - last 24 hr 05/13/22 05/13/22 05/13/22 11:11 11:11 11:11 MCV 91.0 MCH 27.1 MCHC 29.8 L RDW 15.2 Plt Count 142 L MPV 10.0 Immature Gran % (Auto) 0.2 Neut % (Auto) 80.0 H Lymph % (Auto) 12.1 L [place] % (Auto) 6.9 Eos % (Auto) 0.5 Baso % (Auto) 0.3 Lymph # (Auto) 0.7 L [place] # (Auto) 0.4 Eos # (Auto) 0.0 Baso # (Auto) 0.0 Abs Immat Gran (auto) 0.01 Absolute Neuts (auto) 4.8 Absolute Nucleated RBC 0.000 Nucleated RBC % (auto) 0.0 PT INR APTT D-Dimer High Sensitivty Anion Gap 16 Estim Creat Clear Calc 63.8 Estimated GFR > 60 Random Glucose 106 Lactic Acid 1.2 Calcium 9.7 Magnesium 1.6 Ferritin 36 Total Bilirubin 0.9 Direct Bilirubin 0.3 AST 16 ALT 9 Alkaline Phosphatase 114 Lactate Dehydrogenase 183 Troponin I High Sens C-Reactive Protein 2.26 H B-Natriuretic Peptide Total Protein 6.9 Albumin 3.6 Procalcitonin COVID-19 (IVETT) COVID-19 Clin Com 05/13/22 05/13/22 05/13/22 11:11 12:36 13:41 MCV MCH MCHC RDW Plt Count MPV Immature Gran % (Auto) Neut % (Auto) Lymph % (Auto) [place] % (Auto) Eos % (Auto) Baso % (Auto) Lymph # (Auto) [place] # (Auto) Eos # (Auto) Baso # (Auto) Abs Immat Gran (auto) Absolute Neuts (auto) Absolute Nucleated RBC Nucleated RBC % (auto) PT INR APTT D-Dimer High Sensitivty Anion Gap Estim Creat Clear Calc Estimated GFR Random Glucose Lactic Acid Calcium Magnesium Ferritin Total Bilirubin Direct Bilirubin AST ALT Alkaline Phosphatase Lactate Dehydrogenase Troponin I High Sens 11.3 C-Reactive Protein B-Natriuretic Peptide 66 Total Protein Albumin Procalcitonin 0.02 COVID-19 (IVETT) Positive A COVID-19 Clin Com See Note 05/13/22 13:52 MCV MCH MCHC RDW Plt Count MPV Immature Gran % (Auto) Neut % (Auto) Lymph % (Auto) [place] % (Auto) Eos % (Auto) Baso % (Auto) Lymph # (Auto) [place] # (Auto) Eos # (Auto) Baso # (Auto) Abs Immat Gran (auto) Absolute Neuts (auto) Absolute Nucleated RBC Nucleated RBC % (auto) PT 13.6 H INR 1.2 H APTT 30.5 D-Dimer High Sensitivty 419 Anion Gap Estim Creat Clear Calc Estimated GFR Random Glucose Lactic Acid Calcium Magnesium Ferritin Total Bilirubin Direct Bilirubin AST ALT Alkaline Phosphatase Lactate Dehydrogenase Troponin I High Sens C-Reactive Protein B-Natriuretic Peptide Total Protein Albumin Procalcitonin COVID-19 (IVETT) COVID-19 Clin Com Imaging Radiologist's Impressions: Impressions Chest X-Ray 05/13/22 11:42 IMPRESSION: No significant acute parenchymal disease identified. Prominence of central pulmonary vasculature without nigel interstitial or airspace edema. Cervical Spine CT 05/13/22 12:07 IMPRESSION: 1. Straightening of the normal cervical lordosis may be secondary to positioning and/or muscle spasm. 2. Multilevel degenerative changes. No acute abnormality. Head CT 05/13/22 12:07 IMPRESSION: No acute intracranial pathology. Assessment and Plan (1) Acute respiratory failure with hypoxia: Status: Acute (2) COVID-19: Status: Acute (3) Fall: Status: Acute Plan An 86 y\o lady w PMH of Afib on Xarelto, COPD, chronic leg edema among others who presents to the hospital after sustaining a fall at home. 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 acute hypoxic respiratory failure 2\2 Covid19 infx infection over 1 week now oxygen supplement, encourage PO intake wean O2 down as tolerated COPD exacerbation Steroids Duoneb nebulizer Fall mechanical in nature, no reported injuries PT eval paroxysmal Afib n sinus rhythm continue Xarelto Chronic LE edema Torsemide DVT PPx xarelto The patient will likely need 2 overnight hospital stay for treatment of hypoxia pending weaning off oxygen supplement and evaluation of gait to prevent recurrent falls pending safe discharge plan Quality Stroke Does the patient have a stroke diagnosis?: No VTE Prior VTE?: No VTE Risk Level:: Medical - moderate - high VTE Device Contraindication: Treatment Not Indicated VTE Drug Contraindication: N/A - Med Ordered
--- NOTE | 2022-05-13 17:09 | PC.NURSE ---
pt. resting comfortably. A&O but forgetful, keeps asking if she is going to stay. IV from EMS came out. New IV in place on left forearm. no difficulty breathing sat96% 2L
[2022-05-13] MEDS: 0.9 % Sodium Chloride Flush 3 ML SYRINGE IVFLUSH (17:12)
[2022-05-13 20:12] VITALS: BP 139/62; PULSE 62; RESP 9; TEMP 36.4; O2SAT 95
[2022-05-13] MEDS: Rivaroxaban 20 MG TABLET PO (20:17)
[2022-05-13] MEDS: FLUoxetine HCl 20 MG CAPSULE PO (20:17)
[2022-05-13] MEDS: FLUoxetine HCl 10 MG CAPSULE PO (20:17)
--- NOTE | 2022-05-13 20:44 | PC.NURSE ---
patient resting comfortably in bed, resp equal and unlabored. on 2L nasal cannula. routine night medications admin. call sevilla placed within reach and lights dimmed. will continue to monitor..
[2022-05-14 00:09] VITALS: BP 136/48; PULSE 63; RESP 16; TEMP 36.4; O2SAT 94
[2022-05-14] MEDS: 0.9 % Sodium Chloride Flush 3 ML SYRINGE IVFLUSH ×3 (00:58→17:32)
[2022-05-14 04:00] VITALS: BP 132/40; PULSE 59; RESP 16; TEMP 36.4; O2SAT 95
--- NOTE | 2022-05-14 04:42 | PC.NURSE ---
patient was inconient of urine ,inc care given bed pads change ,patient fell back to sleep .
[2022-05-14 07:39] VITALS: BP 125/37; PULSE 59; RESP 17; TEMP 36.4; O2SAT 94
[2022-05-14 08:47] LABS: Hemoglobin 13.9 g/dl (12.0-16.0); Mean Corpuscular HGB Conc 29.4 g/dl (31.0-35.0); PLT CLUMP 1; Red Cell Distribution Width 15.2 % (11.0-16.0)
[2022-05-14 08:49] LABS: Hematocrit 47.3 % (37.0-47.0); Mean Corpuscular Hemoglobin 27.1 pg (27.0-33.0); Mean Corpuscular Volume 92.4 fL (80.0-98.0); Mean Platelet Volume 10.7 fL (9.4-12.3); Red Blood Count 5.12 X10*6/uL (4.20-5.50)
[2022-05-14 08:51] LABS: White Blood Count 6.5 X10*3/uL (4.8-10.8)
--- NOTE | 2022-05-14 09:00 | PC.NURSE ---
PT A&Ox3, denies pain. PT reports unproductive cough. Denies SOB, CP, headache, or dizziness. PT on 2L NC, slightly diminished lung sounds. Meds given as documented. Will continue to observe.
[2022-05-14 09:06] LABS: Anion Gap 19 (12-20); Blood Urea Nitrogen 13 mg/dL (9-16); Calcium 9.4 mg/dL (8.4-10.2); Carbon Dioxide 26 mmol/L (22-29); Chloride 103 mmol/L (96-108); Creatinine Clr Calc Pharmacy 72.8; Estimated Glomerular Filt Rate > 60; Glucose Random 85 mg/dL (60-115); Potassium 4.7 mmol/L (3.3-5.1); Sodium 143 mmol/L (135-145)
[2022-05-14 09:08] LABS: Platelet Count 124 X10*3/uL (160-400)
[2022-05-14] MEDS: Multivitamin TABLET 1 TAB PO (09:08)
[2022-05-14] MEDS: Pregabalin 150 MG CAPSULE PO (09:08)
[2022-05-14] MEDS: Torsemide 20 MG TABLET PO (09:08)
[2022-05-14] MEDS: methylPREDNISolone Sod Succ 40 MG/ML VIAL IVPUSH (09:09)
[2022-05-14] MEDS: Ascorbic Acid 500 MG TABLET PO (09:09)
[2022-05-14 13:07] VITALS: BP 167/62; PULSE 67; RESP 15; TEMP 36.3; O2SAT 90
--- NOTE | 2022-05-14 13:32 | P.PNIM_ITS ---
Subjective Subjective Date of Service: 05/14/22 Interval History: Feels better but still requiring oxygen supplement denies fever or chills no reported overnight events Review of Systems No fever, chills but has generalized weakness No chest pain, palpitation , swelling of lower extremities No shortness of breath or coughing No abdominal pain, nausea or vomiting No urinary symptoms No any rash or wounds Physical Exam Vital Signs: Vital Signs: Last Vital Signs Temp 97.3 F 05/14/22 13:07 Pulse 67 05/14/22 13:07 Resp 15 05/14/22 13:07 BP 167/62 H 05/14/22 13:07 Pulse Ox 90 L 05/14/22 13:07 O2 Del Method 05/14/22 13:07 O2 Flow Rate 2 05/14/22 13:07 Oxygen Flow Rate 2 05/13/22 10:54 BMI result Body Mass Index 42.9 Const: Other: Constitutional : Alert, oriented, not in distress Neck : Normal inspection, Supple Cardiovascular : RRR, no JVP, +1 lower extremity edema Respiratory : fair bilateral air entry, no crackles, fine scattered expiratory wheezes Gastrointestinal: soft, lax, Normal bowel sounds, Non tender Skin : Warm, Dry, chronic stasis dermatitis findings Neurological : Alert & oriented x3, No focal deficit Objective Data Active Medications Acetaminophen (Acetaminophen 325 Mg Tablet) 650 mg PO Q6H PRN PRN Reason: Pain, Mild (Pain Scale 1-3) Albuterol Sulfate (Albuterol Sulfate 90 Mcg 8 Gm Inhaler) 2 puff INHALE Q6H PRN PRN Reason: Shortness Of Breath Albuterol/Ipratropium (Albuterol/Iprat 2.5/0.5mg 3 Ml Ampul.Neb) 3 ml INHALE RQ4H WHILE AWAKE [facility] Last Admin: 05/14/22 11:22 Dose: Not Given Documented By: LESLIE Non-Admin Reason: Patient Asleep Ascorbic Acid (Ascorbic Acid 500 Mg Tablet) 500 mg PO DAILY [facility] Last Admin: 05/14/22 09:09 Dose: 500 mg Documented By: NAZARIO Fluoxetine HCl (Fluoxetine Hcl 10 Mg Capsule) 10 mg PO BEDTIME [facility] Last Admin: 05/13/22 20:17 Dose: 10 mg Documented By: SIXTO-JULIET Fluoxetine HCl (Fluoxetine Hcl 20 Mg Capsule) 20 mg PO BEDTIME [facility] Last Admin: 05/13/22 20:17 Dose: 20 mg Documented By: JO-ANN Methylprednisolone Sodium Succinate (Methylprednisolone Sod Succ 40 Mg/Ml Vial) 40 mg IVPUSH Q24H [facility] Last Admin: 05/14/22 09:09 Dose: 40 mg Documented By: NAZARIO Multivitamins/Vitamin C (Multivitamin Tablet) 1 tab PO DAILY [facility] Last Admin: 05/14/22 09:08 Dose: 1 tab Documented By: NAZARIO Ondansetron HCl (Ondansetron Hcl 4 Mg/2 Ml Vial) 4 mg IVPUSH Q8H PRN PRN Reason: Nausea and Vomiting Pharmacy Consult (Consult Rx Perform Med Rec) 1 each MISCELLANE ONCE PRN PRN Reason: Consult order Pregabalin (Pregabalin 150 Mg Capsule) 150 mg PO DAILY [facility] Last Admin: 05/14/22 09:08 Dose: 150 mg Documented By: NAZARIO Rivaroxaban (Rivaroxaban 20 Mg Tablet) 20 mg PO BEDTIME [facility] Last Admin: 05/13/22 20:17 Dose: 20 mg Documented By: JO-ANN Sodium Chloride (0.9 % Sodium Chloride Flush 3 Ml Syringe) 3 ml IVFLUSH QSHIFT [facility] Last Admin: 05/14/22 09:09 Dose: 3 ml Documented By: NAZARIO Torsemide (Torsemide 20 Mg Tablet) 20 mg PO DAILY [facility]; Protocol Last Admin: 05/14/22 09:08 Dose: 20 mg Documented By: NAZARIO Trazodone HCl (Trazodone Hcl 50 Mg Tablet) 50 mg PO BEDTIME PRN PRN Reason: Insomnia Labs CBC & Chem 7: 05/14/22 07:55 05/14/22 07:55 Labs: Laboratory Results - last 24 hr 05/13/22 05/13/22 05/13/22 12:36 13:41 13:52 MCV MCH MCHC RDW Plt Count MPV Absolute Nucleated RBC Nucleated RBC % (auto) PT 13.6 H INR 1.2 H APTT 30.5 D-Dimer High Sensitivty 419 Anion Gap Estim Creat Clear Calc Estimated GFR Random Glucose Calcium B-Natriuretic Peptide 66 Procalcitonin 0.02 05/14/22 05/14/22 07:55 07:55 MCV 92.4 MCH 27.1 MCHC 29.4 L RDW 15.2 Plt Count 124 L MPV 10.7 Absolute Nucleated RBC 0.000 Nucleated RBC % (auto) 0.0 PT INR APTT D-Dimer High Sensitivty Anion Gap 19 Estim Creat Clear Calc 72.8 Estimated GFR > 60 Random Glucose 85 Calcium 9.4 B-Natriuretic Peptide Procalcitonin Microbiology Microbiology Results: Microbiology 05/13/22 11:11 Blood Culture - Preliminary Blood - Venous No growth after 24 hours. Assessment and Plan (1) Fall: Status: Acute (2) Acute respiratory failure with hypoxia: Status: Acute (3) COVID-19: Status: Acute Plan An 86 y\o lady w PMH of Afib on Xarelto, COPD, chronic leg edema among others who presents to the hospital after sustaining a fall at home. 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 acute hypoxic respiratory failure 2\2 Covid19 infx infection over 1 week now oxygen supplement, encourage PO intake wean O2 down as tolerated COPD exacerbation Steroids Duoneb nebulizer Fall mechanical in nature, no reported injuries PT eval paroxysmal Afib n sinus rhythm continue Xarelto Chronic LE edema Torsemide DVT PPx xarelto The patient will likely need overnight hospital stay for treatment of hypoxia pending weaning off oxygen supplement and evaluation of gait to prevent recurrent falls pending safe discharge plan Quality Stroke Does the patient have a stroke diagnosis?: No VTE Prior VTE?: No VTE Risk Level:: Medical - moderate - high VTE Device Contraindication: Treatment Not Indicated VTE Drug Contraindication: N/A - Med Ordered
[2022-05-14] MEDS: Benzonatate 100 MG CAPSULE PO ×2 (14:44→21:13)
--- NOTE | 2022-05-14 20:04 | PC.NURSE ---
manager quantitative Rupa informed this RN that she took a call from the pt.'s son. Pt.'s son states that he is very upset, states that his mother was only fed a banana on day shift and wasn't offered other food. HILLARY Devine in to feed pt. at this time
--- NOTE | 2022-05-14 20:10 | PC.NURSE ---
Son michaela called concern about his mother not receiving any lunch or dinner. This Rn reported concern with Current nurse. Meal tray was provided. Call yina Meade back and updated him of current status.
--- NOTE | 2022-05-14 20:15 | PC.NURSE ---
Pt. has meal tray at this time. Eating, denies any complaints
[2022-05-14 21:11] VITALS: BP 135/36; PULSE 69; RESP 20; TEMP 36.4; O2SAT 94
[2022-05-14] MEDS: FLUoxetine HCl 10 MG CAPSULE PO (21:13)
[2022-05-14] MEDS: FLUoxetine HCl 20 MG CAPSULE PO (21:13)
[2022-05-14] MEDS: Rivaroxaban 20 MG TABLET PO (21:13)
[2022-05-14 23:48] VITALS: BP 143/52; PULSE 59; RESP 16; TEMP 36.1; O2SAT 95
[2022-05-15] VITALS (12 sets, daily range): BP systolic 120–147; BP diastolic 40–60; PULSE 62–80; RESP 14–20; TEMP 36.3–36.7; O2SAT 80–97
--- NOTE | 2022-05-15 02:15 | PC.NURSE ---
PT GIVEN PARUL CARE. PUREWICK CHANGED AND BED LINEN/PADS. PT GIVEN ICE WATER AND WARM BLANKETS CALL ROSSI PLACED IN REACH
--- NOTE | 2022-05-15 06:24 | PC.NURSE ---
PT given emily care. Purewick emptied and pads changed. pt pulled up in bed and given warm blankets. call sevilla placed in reach
[2022-05-15 07:22] LABS: Anion Gap 16 (12-20); Blood Urea Nitrogen 19 mg/dL (9-16); C Reactive Protein 1.76 mg/dL (< or = 0.50); Calcium 9.9 mg/dL (8.4-10.2); Carbon Dioxide 37 mmol/L (22-29); Chloride 96 mmol/L (96-108); Creatinine Clr Calc Pharmacy 66.2; Estimated Glomerular Filt Rate > 60; Glucose Random 87 mg/dL (60-115); Lactate Dehydrogenase 124 U/L (122-220); Potassium 4.1 mmol/L (3.3-5.1); Sodium 145 mmol/L (135-145)
[2022-05-15] MEDS: Albuterol/Iprat 2.5/0.5MG 3 ML AMPUL.NEB INHALE ×3 (08:21→18:56)
[2022-05-15] MEDS: Benzonatate 100 MG CAPSULE PO ×3 (09:06→20:00)
[2022-05-15] MEDS: Pregabalin 150 MG CAPSULE PO (09:06)
[2022-05-15] MEDS: Multivitamin TABLET 1 TAB PO (09:06)
[2022-05-15] MEDS: methylPREDNISolone Sod Succ 40 MG/ML VIAL IVPUSH (09:06)
[2022-05-15] MEDS: Torsemide 20 MG TABLET PO (09:06)
[2022-05-15] MEDS: Ascorbic Acid 500 MG TABLET PO (09:06)
[2022-05-15] MEDS: 0.9 % Sodium Chloride Flush 3 ML SYRINGE IVFLUSH ×2 (09:16→20:00)
--- NOTE | 2022-05-15 09:42 | PC.NURSE ---
patient wash and linen change .
--- NOTE | 2022-05-15 12:29 | HO.PM.IMPN ---
Subjective Subjective Date of Service: 05/15/22 Interval History: Feels better but still requiring oxygen supplement denies fever or chills no reported overnight events Review of Systems No fever, chills but has generalized weakness No chest pain, palpitation , swelling of lower extremities No shortness of breath or coughing No abdominal pain, nausea or vomiting No urinary symptoms No any rash or wounds Physical Exam Vital Signs: Vital Signs: Last Vital Signs Temp 97.6 F 05/15/22 10:57 Pulse 62 05/15/22 11:12 Resp 15 05/15/22 11:12 BP 121/44 L 05/15/22 10:57 Pulse Ox 89 L 05/15/22 10:57 O2 Del Method 05/15/22 10:57 O2 Flow Rate 2 05/15/22 07:11 Oxygen Flow Rate 2 05/13/22 10:54 BMI result Body Mass Index 42.9 Const: Other: Constitutional : Alert, oriented, not in distress Neck : Normal inspection, Supple Cardiovascular : RRR, no JVP, +1 lower extremity edema Respiratory : fair bilateral air entry, no crackles, fine scattered expiratory wheezes Gastrointestinal: soft, lax, Normal bowel sounds, Non tender Skin : Warm, Dry, chronic stasis dermatitis findings Neurological : Alert & oriented x3, No focal deficit Objective Data Active Medications Acetaminophen (Acetaminophen 325 Mg Tablet) 650 mg PO Q6H PRN PRN Reason: Pain, Mild (Pain Scale 1-3) Albuterol Sulfate (Albuterol Sulfate 90 Mcg 8 Gm Inhaler) 2 puff INHALE Q6H PRN PRN Reason: Shortness Of Breath Albuterol/Ipratropium (Albuterol/Iprat 2.5/0.5mg 3 Ml Ampul.Neb) 3 ml INHALE RQ4H WHILE AWAKE [facility] Last Admin: 05/15/22 11:11 Dose: 3 ml Documented By: DAVI Ascorbic Acid (Ascorbic Acid 500 Mg Tablet) 500 mg PO DAILY [facility] Last Admin: 05/15/22 09:06 Dose: 500 mg Documented By: TANESHA Benzonatate (Benzonatate 100 Mg Capsule) 100 mg PO TID [facility] Last Admin: 05/15/22 09:06 Dose: 100 mg Documented By: TANESHA Fluoxetine HCl (Fluoxetine Hcl 10 Mg Capsule) 10 mg PO BEDTIME [facility] Last Admin: 05/14/22 21:13 Dose: 10 mg Documented By: JOCELYN Fluoxetine HCl (Fluoxetine Hcl 20 Mg Capsule) 20 mg PO BEDTIME [facility] Last Admin: 05/14/22 21:13 Dose: 20 mg Documented By: JOCELYN Methylprednisolone Sodium Succinate (Methylprednisolone Sod Succ 40 Mg/Ml Vial) 40 mg IVPUSH Q24H [facility] Last Admin: 05/15/22 09:06 Dose: 40 mg Documented By: TANESHA Multivitamins/Vitamin C (Multivitamin Tablet) 1 tab PO DAILY [facility] Last Admin: 05/15/22 09:06 Dose: 1 tab Documented By: TANESHA Ondansetron HCl (Ondansetron Hcl 4 Mg/2 Ml Vial) 4 mg IVPUSH Q8H PRN PRN Reason: Nausea and Vomiting Pharmacy Consult (Consult Rx Perform Med Rec) 1 each MISCELLANE ONCE PRN PRN Reason: Consult order Pregabalin (Pregabalin 150 Mg Capsule) 150 mg PO DAILY [facility] Last Admin: 05/15/22 09:06 Dose: 150 mg Documented By: TANESHA Rivaroxaban (Rivaroxaban 20 Mg Tablet) 20 mg PO BEDTIME [facility] Last Admin: 05/14/22 21:13 Dose: 20 mg Documented By: JOCELYN Sodium Chloride (0.9 % Sodium Chloride Flush 3 Ml Syringe) 3 ml IVFLUSH QSHIFT [facility] Last Admin: 05/15/22 09:16 Dose: 3 ml Documented By: TANESHA Torsemide (Torsemide 20 Mg Tablet) 20 mg PO DAILY [facility]; Protocol Last Admin: 05/15/22 09:06 Dose: 20 mg Documented By: TANESHA Trazodone HCl (Trazodone Hcl 50 Mg Tablet) 50 mg PO BEDTIME PRN PRN Reason: Insomnia Labs CBC & Chem 7: 05/14/22 07:55 05/15/22 06:15 Labs: Laboratory Results - last 24 hr 05/15/22 05/15/22 06:15 06:15 Anion Gap 16 Estim Creat Clear Calc 66.2 Estimated GFR > 60 Random Glucose 87 Calcium 9.9 Lactate Dehydrogenase 124 C-Reactive Protein 1.76 H Microbiology Microbiology Results: Microbiology 05/13/22 12:35 Blood Culture - Preliminary Blood - Venous No growth after 24 hours. 05/13/22 11:11 Blood Culture - Preliminary Blood - Venous No growth after 24 hours. Assessment and Plan (1) Fall: Status: Acute (2) Acute respiratory failure with hypoxia: Status: Acute (3) COVID-19: Status: Acute Plan An 86 y\o lady w PMH of Afib on Xarelto, COPD, chronic leg edema among others who presents to the hospital after sustaining a fall at home. found to be hypoxic by EMS as she is covid positive for 1 week [employer]. acute hypoxic respiratory failure 2\2 Covid19 infx infection over 1 week now oxygen supplement, encourage PO intake wean O2 down as tolerated, sat around 90% on RA. COPD exacerbation Steroids Duoneb nebulizer Fall mechanical in nature, no reported injuries Pending PT eval paroxysmal Afib n sinus rhythm continue Xarelto Chronic LE edema Torsemide DVT PPx xarelto The patient will likely need overnight hospital stay for treatment of hypoxia pending weaning off oxygen supplement and evaluation of gait to prevent recurrent falls pending safe discharge plan Quality Stroke Does the patient have a stroke diagnosis?: No VTE Prior VTE?: No VTE Risk Level:: Medical - moderate - high VTE Device Contraindication: Treatment Not Indicated VTE Drug Contraindication: N/A - Med Ordered
[2022-05-15] MEDS: FLUoxetine HCl 10 MG CAPSULE PO (20:00)
[2022-05-15] MEDS: Rivaroxaban 20 MG TABLET PO (20:00)
[2022-05-15] MEDS: FLUoxetine HCl 20 MG CAPSULE PO (20:00)
[2022-05-16] VITALS (10 sets, daily range): BP systolic 117–150; BP diastolic 49–70; PULSE 70–100; RESP 16–18; TEMP 36.3–36.8; O2SAT 90–98
[2022-05-16] MEDS: methylPREDNISolone Sod Succ 40 MG/ML VIAL IVPUSH (08:42)
[2022-05-16] MEDS: Pregabalin 150 MG CAPSULE PO (08:43)
[2022-05-16] MEDS: Benzonatate 100 MG CAPSULE PO ×3 (08:43→20:34)
[2022-05-16] MEDS: Multivitamin TABLET 1 TAB PO (08:43)
[2022-05-16] MEDS: Torsemide 20 MG TABLET PO (08:43)
[2022-05-16] MEDS: Ascorbic Acid 500 MG TABLET PO (08:43)
[2022-05-16] MEDS: 0.9 % Sodium Chloride Flush 3 ML SYRINGE IVFLUSH ×2 (08:44→15:14)
[2022-05-16] MEDS: Albuterol/Iprat 2.5/0.5MG 3 ML AMPUL.NEB INHALE ×4 (09:20→19:42)
--- NOTE | 2022-05-16 10:08 | MHC.CM.PN ---
pt from [facility] she is agreeable with physical therapies recommendation for str her one and only choice is [facility] dc plan str
--- NOTE | 2022-05-16 12:52 | HO.PM.IMPN ---
Subjective Subjective Date of Service: 05/16/22 Interval History: Feels better , weaned off oxygen Participate with physical therapy, recommended SNF denies fever or chills no reported overnight events Review of Systems No fever, chills but has generalized weakness No chest pain, palpitation , swelling of lower extremities No shortness of breath or coughing No abdominal pain, nausea or vomiting No urinary symptoms No any rash or wounds Physical Exam Vital Signs: Vital Signs: Last Vital Signs Temp 98.1 F 05/16/22 11:31 Pulse 72 05/16/22 11:51 Resp 18 05/16/22 11:51 BP 141/67 H 05/16/22 11:31 Pulse Ox 93 05/16/22 11:31 O2 Del Method 05/16/22 11:31 O2 Flow Rate 2 05/16/22 11:31 Oxygen Flow Rate 2 05/13/22 10:54 BMI result Body Mass Index 42.9 Const: Other: Constitutional : Alert, oriented, not in distress Neck : Normal inspection, Supple Cardiovascular : RRR, no JVP, +1 lower extremity edema Respiratory : fair bilateral air entry, no crackles, fine scattered expiratory wheezes Gastrointestinal: soft, lax, Normal bowel sounds, Non tender Skin : Warm, Dry, chronic stasis dermatitis findings Neurological : Alert & oriented x3, No focal deficit Objective Data Active Medications Acetaminophen (Acetaminophen 325 Mg Tablet) 650 mg PO Q6H PRN PRN Reason: Pain, Mild (Pain Scale 1-3) Albuterol Sulfate (Albuterol Sulfate 90 Mcg 8 Gm Inhaler) 2 puff INHALE Q6H PRN PRN Reason: Shortness Of Breath Albuterol/Ipratropium (Albuterol/Iprat 2.5/0.5mg 3 Ml Ampul.Neb) 3 ml INHALE RQ4H WHILE AWAKE [facility] Last Admin: 05/16/22 11:50 Dose: 3 ml Documented By: TAMANNA Ascorbic Acid (Ascorbic Acid 500 Mg Tablet) 500 mg PO DAILY [facility] Last Admin: 05/16/22 08:43 Dose: 500 mg Documented By: HOMAR Benzonatate (Benzonatate 100 Mg Capsule) 100 mg PO TID [facility] Last Admin: 05/16/22 08:43 Dose: 100 mg Documented By: HOMAR Fluoxetine HCl (Fluoxetine Hcl 10 Mg Capsule) 10 mg PO BEDTIME [facility] Last Admin: 05/15/22 20:00 Dose: 10 mg Documented By: PAULA Fluoxetine HCl (Fluoxetine Hcl 20 Mg Capsule) 20 mg PO BEDTIME [facility] Last Admin: 05/15/22 20:00 Dose: 20 mg Documented By: PAULA Methylprednisolone Sodium Succinate (Methylprednisolone Sod Succ 40 Mg/Ml Vial) 40 mg IVPUSH Q24H [facility] Last Admin: 05/16/22 08:42 Dose: 40 mg Documented By: HOMAR Multivitamins/Vitamin C (Multivitamin Tablet) 1 tab PO DAILY [facility] Last Admin: 05/16/22 08:43 Dose: 1 tab Documented By: HOMAR Ondansetron HCl (Ondansetron Hcl 4 Mg/2 Ml Vial) 4 mg IVPUSH Q8H PRN PRN Reason: Nausea and Vomiting Pharmacy Consult (Consult Rx Perform Med Rec) 1 each MISCELLANE ONCE PRN PRN Reason: Consult order Pregabalin (Pregabalin 150 Mg Capsule) 150 mg PO DAILY [facility] Last Admin: 05/16/22 08:43 Dose: 150 mg Documented By: HOMAR Rivaroxaban (Rivaroxaban 20 Mg Tablet) 20 mg PO BEDTIME [facility] Last Admin: 05/15/22 20:00 Dose: 20 mg Documented By: PAULA Sodium Chloride (0.9 % Sodium Chloride Flush 3 Ml Syringe) 3 ml IVFLUSH QSHIFT [facility] Last Admin: 05/16/22 08:44 Dose: 3 ml Documented By: HOMAR Torsemide (Torsemide 20 Mg Tablet) 20 mg PO DAILY [facility]; Protocol Last Admin: 05/16/22 08:43 Dose: 20 mg Documented By: HOMAR Trazodone HCl (Trazodone Hcl 50 Mg Tablet) 50 mg PO BEDTIME PRN PRN Reason: Insomnia Labs CBC & Chem 7: 05/14/22 07:55 05/15/22 06:15 Microbiology Microbiology Results: Microbiology 05/13/22 12:35 Blood Culture - Preliminary Blood - Venous No growth after 48 hours. 05/13/22 11:11 Blood Culture - Preliminary Blood - Venous No growth after 48 hours. Assessment and Plan (1) Fall: Status: Acute (2) COVID-19: Status: Acute Plan An 86 y\o lady w PMH of Afib on Xarelto, COPD, chronic leg edema among others who presents to the hospital after sustaining a fall at home. 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 acute hypoxic respiratory failure 2\2 Covid19 infx infection over 1 week now oxygen supplement, encourage PO intake Weaned off oxygen COPD exacerbation Continue Steroids Duoneb nebulizer Fall mechanical in nature, no reported injuries PT input appreciated, needs SNF paroxysmal Afib n sinus rhythm continue Xarelto Chronic LE edema Torsemide DVT PPx xarelto The patient will likely need overnight hospital stay pending safe discharge plan to SNF Quality Stroke Does the patient have a stroke diagnosis?: No VTE Prior VTE?: No VTE Risk Level:: Medical - moderate - high VTE Device Contraindication: Treatment Not Indicated VTE Drug Contraindication: N/A - Med Ordered
--- NOTE | 2022-05-16 13:55 | MHC.CM.PN ---
Per MD, Patient can be medically cleared for dc today. PT is recommending STR. CM met with Patient at bedside and explained that the only 2 SNFs that have beds that can accommodate Covid (+) patients is [facility] and [facility]. Per Patient's request, CM spoke with Patient's Son/Deshaun at listed # and CM awaits a return call from Deshaun with his and Patient's SNF choice. Deshaun has requested a little time to research the 2 SNFs; DARVIN has made MD aware. CM will follow.
--- NOTE | 2022-05-16 15:04 | MHC.CM.PN ---
Patient has been medically cleared for dc to SNF/STR today. Per Patient and Son's choice, [facility] today at 6:30 PM, via [facility].IMM addressed this morning.
--- NOTE | 2022-05-16 15:05 | P.DS_ITS ---
DS: Providers Provider Date of Service: 05/16/22 Date of admission: 05/13/22 15:09 Primary care physician: Landry Cody MD DS: Diagnosis Discharge Diagnosis (1) Fall: Status: Acute (2) COVID-19: Status: Acute (3) Acute respiratory failure with hypoxia: Status: Acute (4) COPD (chronic obstructive pulmonary disease): Status: Acute DS: Summary Hospital Course Hospital Course: Admission note HPI An 86 y\o lady w [facility] of Afib on Xarelto, COPD, chronic leg edema among others who presents to the hospital after sustaining a fall at home. found to be hypoxic by EMS as she is covid positive for 1 week CRED[employer]. reportss that she is vaccinated but got covid 1 week earlier, noticed overall weakness but was eating well. was getting out of shower today when she slipped and fell but couldnt get up so EMS was called who found her hypoxic to early 80s. responded partially to steroids and nebulizer treatment as she was placed on oxygen supplement to bring her sat to 90s. Evaluated in ED with CXR showing no evidence of pneumonia. Head CT negative for any acute findings. admitted for further eval and treatment. Hospital course The patient was admitted to the hospital for evaluation of acute hypoxic respiratory failure secondary to COVID-19 infection and COPD exacerbation noted as the patient had a fall at home. Treated with oxygen, steroids and bronchodilator nebulizers with good response over the course of hospital stay as she was weaned off the oxygen. Did not require any COVID 19 infection as she was diagnosed more than week ago. Evaluated by Physical therapy who recommended short-term rehab placement. Continue prednisone and cough medication for the next 3 days Use rescue inhaler as needed Continue physical therapy Time Spent with Patient Time attestation: Total time spent providing and/or coordinating discharge services: Discharge coordination time: Greater than 30 minutes Quality: Safe Use of Opioids Does Pt have an Active Cancer Diagnosis on the Problem List?: No Quality: Stroke Does the patient have a stroke diagnosis?: No Physical Exam Vital Signs: Vital Signs: Last Vital Signs Temp 98.1 F 05/16/22 15:01 Pulse 76 05/16/22 15:01 Resp 17 05/16/22 15:01 BP 130/49 L 05/16/22 15:01 Pulse Ox 93 05/16/22 15:01 O2 Del Method 05/16/22 15:01 O2 Flow Rate 2.5 05/16/22 15:01 Oxygen Flow Rate 2 05/13/22 10:54 BMI result Body Mass Index 42.9 Const: Other: Constitutional : Alert, oriented, not in distress Neck : Normal inspection, Supple Cardiovascular : RRR, no JVP, +1 lower extremity edema Respiratory : fair bilateral air entry, no crackles, fine scattered expiratory wheezes Gastrointestinal: soft, lax, Normal bowel sounds, Non tender Skin : Warm, Dry, chronic stasis dermatitis findings Neurological : Alert & oriented x3, No focal deficit DS: Data Data Completed and Pending Labs on day of discharge: Preliminary micro results at discharge 05/13/22 12:35 Blood Culture - Preliminary Blood - Venous No growth after 48 hours. 05/13/22 11:11 Blood Culture - Preliminary Blood - Venous No growth after 48 hours. Imaging Chest x-ray: Radiologist's impression: ITS Impressions Chest X-Ray 05/13/22 11:42 IMPRESSION: No significant acute parenchymal disease identified. Prominence of central pulmonary vasculature without nigel interstitial or airspace edema. Cervical Spine CT 05/13/22 12:07 IMPRESSION: 1. Straightening of the normal cervical lordosis may be secondary to positioning and/or muscle spasm. 2. Multilevel degenerative changes. No acute abnormality. Head CT 05/13/22 12:07 IMPRESSION: No acute intracranial pathology. Discharge Plan Discharge Anticipated Discharge Date/Time: 05/16/22 15:03 Patient Disposition: Xfer [facility] Discharge Diagnosis: Fall COVID-19 infection Referrals: [facility] [Outside] - 1 Week Landry Cody MD [Primary Care Provider] - 1 Week Discharge Medications: New prednisone 20 mg Tablet 40 mg PO DAILY 3 Days Qty: 6 0RF benzonatate 100 mg Capsule 100 mg PO TID Qty: 20 0RF Continued trazodone 50 mg tablet 1 tab PO BEDTIME PRN (Reason: Insomnia) fluoxetine 20 mg capsule 1 cap PO BEDTIME Rx Instructions: TDD = 30 MG albuterol sulfate [Ventolin HFA] 90 mcg/actuation HFA aerosol inhaler 2 puff inhalation Q6H PRN (Reason: Shortness Of Breath) ascorbic acid (vitamin C) 500 mg capsule 500 mg PO DAILY fluoxetine 10 mg capsule 10 mg PO BEDTIME Rx Instructions: TDD = 30 MG rivaroxaban 20 mg tablet 20 mg PO BEDTIME vitamin B complex [Vitamins B Complex] Tablet 1 tab PO DAILY fluticasone propionate 50 mcg/actuation spray,suspension 2 spray intranasal DAILY pregabalin 150 mg capsule 150 mg PO DAILY torsemide 20 mg tablet 20 mg PO DAILY Discharge Orders: Discharge Order (Routine); Ordered 05/16/22 Ordered By: Munir Maurer Diet: Advance to usual diet Activity on Discharge: As tolerated Stand Alone Forms: Patient Portal Discharge page Care Plan Goals: Read below Health Concerns: Read below Plan of Treatment: Read below Assessment: You were admitted to the hospital after sustaining a fall at home. Found to have COVID-19 infection with COPD exacerbation treated with oxygen, steroids and nebulizers with good response as you were evaluated by physical therapy team who recommended short-term rehab. Continue prednisone and cough medication for the next 3 days Use rescue inhaler as needed Continue physical therapy
[2022-05-16] MEDS: FLUoxetine HCl 10 MG CAPSULE PO (20:33)
[2022-05-16] MEDS: FLUoxetine HCl 20 MG CAPSULE PO (20:33)
[2022-05-16] MEDS: Rivaroxaban 20 MG TABLET PO (20:34)
== END 2022-05-16 21:33 | disposition skilled nursing facility (03) | DRG 177 ==
LOC: HO.ED 14:16 → HO.EDOVER 15:24 → HO.IMC 05-15 14:34
PROVIDERS: Physician Assistant; Admitting Provider Student in an Organized Health Care Education/Training Program; Emergency Provider Emergency Medicine; PCP Family Medicine; Visit Provider Student in an Organized Health Care Education/Training Program
DX: U07.1 COVID-19 (principal); J96.01 Acute respiratory failure with hypoxia; Z68.41 Body mass index [BMI] 40.0-44.9, adult; J44.1 Chronic obstructive pulmonary disease with (acute) exacerbation; I48.0 Paroxysmal atrial fibrillation; E66.9 Obesity, unspecified; Z91.040 Latex allergy status; Z88.0 Allergy status to penicillin; Z88.2 Allergy status to sulfonamides; Z79.01 Long term (current) use of anticoagulants; Z79.51 Long term (current) use of inhaled steroids; Z79.52 Long term (current) use of systemic steroids; Z79.899 Other long term (current) drug therapy
CPT/HCPCS: 36415; 70450; 71045; 72125; 80048; 80076; 82728; 83605; 83615; 83735; 83880; 84145; 84484; 85025; 85027; 85379; 85610; 85730; 86140; 87040; 87635; 93005; 94640; 97162; 97530; 99285; J2920

== ENCOUNTER → 2022-08-28 14:56 | Outpatient (BNVA) | payer MEDICARE, SELFPAY | PROVIDERS: PCP Family Medicine; Visit Provider Internal Medicine | DX: R09.02 Hypoxemia (principal); J44.9 Chronic obstructive pulmonary disease, unspecified; J98.4 Other disorders of lung; E66.9 Obesity, unspecified; Z68.42 Body mass index [BMI] 45.0-49.9, adult | CPT/HCPCS: 94618; 99212 ==

== ENCOUNTER → 2022-09-21 09:52 | Outpatient (BNVA) | payer MEDICARE, SELFPAY | PROVIDERS: PCP Family Medicine; Visit Provider Internal Medicine | DX: J44.9 Chronic obstructive pulmonary disease, unspecified (principal); J98.4 Other disorders of lung; R09.02 Hypoxemia | CPT/HCPCS: 94618; 99211 ==

== ENCOUNTER 2022-10-02 08:37 | Outpatient (RCR) | payer MEDICARE, SELFPAY | END 2022-11-06 12:54 | disposition home or self-care (01) | LOC: HO.WCC 08:37 | PROVIDERS: PCP Family Medicine; Visit Provider Physician Assistant | DX: I87.331 Chronic venous hypertension (idiopathic) with ulcer and inflammation of right lower extremity (principal); L97.812 Non-pressure chronic ulcer of other part of right lower leg with fat layer exposed; I89.0 Lymphedema, not elsewhere classified; I27.23 Pulmonary hypertension due to lung diseases and hypoxia; J44.9 Chronic obstructive pulmonary disease, unspecified; I73.9 Peripheral vascular disease, unspecified; G62.9 Polyneuropathy, unspecified; Z92.21 Personal history of antineoplastic chemotherapy; Z99.81 Dependence on supplemental oxygen; Z92.3 Personal history of irradiation; Z91.199 Patient's noncompliance with other medical treatment and regimen due to unspecified reason | CPT/HCPCS: 11042; 11045; 97597; 97598; 99212 ==